=== PATIENT | male | born 1940 | race Caucasian/White ===

== ENCOUNTER 2020-08-27 11:29 | Outpatient (REF) | payer MEDICARE, SELFPAY | END 2020-08-27 11:30 | disposition home or self-care (01) | LOC: HO.LAB 11:29 | PROVIDERS: Visit Provider Internal Medicine | DX: Z20.828 Contact with and (suspected) exposure to other viral communicable diseases (principal) | CPT/HCPCS: 87635 ==

== ENCOUNTER 2020-09-19 14:00 | Outpatient (RCR) | payer MEDICARE, SELFPAY ==
[2020-08-13 08:09] VITALS: BMI 25.0
[2020-08-13 08:10] VITALS: BP 139/66; PULSE 100; RESP 18; TEMP 36.6; O2SAT 100
[2020-08-13 09:04] LABS: Hematocrit 32.3 % (42-52); Hemoglobin 10.7 g/dl (14.0-18.0); Mean Corpuscular HGB Conc 33.1 g/dl (31.0-36.0); Mean Corpuscular Hemoglobin 29.9 pg (27.0-33.0); Mean Corpuscular Volume 90.2 fL (80-98); Mean Platelet Volume 11.2 fL (9.4-12.4); Platelet Count 203 X10*3/uL (160-400); Red Blood Count 3.58 X10*6/uL (4.60-5.80); Red Cell Distribution Width 16.7 % (11.0-16.0); White Blood Count 4.5 X10*3/uL (4.8-10.8)
[2020-08-13 09:09] LABS: Glucose Urine UA >=1000 MG/DL (NEG); Leukocyte Esterase Urine NEG (NEG); Nitrite Urine NEG (NEG); PH 5.5 (5.0-8.0); Specific Gravity - Urine 1.015 (1.005-1.025); Urine Blood NEG (NEG); Urine Ketones NEG (NEG); Urine Protein NEG (NEG-TRACE)
[2020-08-13 09:13] LABS: Appearance Urine CLEAR; Color Urine YELLOW
[2020-08-13 09:16] LABS: Bacteria Urine TRACE /LPF; Mucus Urine TRACE /LPF; Squamous Epithelial Cell Urine 1+ /LPF
[2020-08-13 09:39] LABS: Alanine Aminotransferase 14 U/L (0-40); Albumin Level 3.8 g/dL (3.5-5.0); Alkaline Phosphatase 145 U/L (39-117); Anion Gap 15 (12-20); Aspartate Amino Transferase 12 U/L (5-37); Bilirubin Total 0.3 mg/dL (0.0-1.0); Blood Urea Nitrogen 25 mg/dL (9-16); Calcium 8.8 mg/dL (8.4-10.2); Carbon Dioxide 23 mmol/L (22-29); Chloride 103 mmol/L (96-108); Creatinine Clr Calc Pharmacy 56.2; Estimated Glomerular Filt Rate > 60; Glucose Random 472 mg/dL (60-115); Magnesium 1.9 mg/dL (1.6-2.6); Potassium 4.5 mmol/l (3.3-5.1); Sodium 136 mmol/L (135-145); Total Protein 6.7 g/dL (6.5-8.0)
--- NOTE | 2020-08-13 10:05 | P.PNHO_ITS ---
Medical Summary - Medical Summary Chief complaint: Follow-up for: Colon cancer. Liver metastases. Medical Summary: DIAGNOSIS: Stage III Colon Carcinoma. THERAPY: FOLFOX-based chemotherapy started May 07, completed 6 cycles on November 15, 2013. Started FOLFIRI, July 02. Here for cycle 2 day 14. Interval History Interval history: This is a pleasant 80-year-old gentleman, here for a follow-up visit. He had a Port-A-Cath inserted on July 02. Subsequently, he was brought down to Oncology for treatment. He has so far been tolerating the treatment reasonably well. He admits to easy fatigability. He has not noticed any fever nor chills. Denies any right upper quadrant nor belly pain. No nausea or vomiting. Denies heartburn indigestion. Denies any diarrhea. No gross blood in stools. His appetite is, regular. His weight stable. He is in good spirits. Rest of the review of systems is unremarkable. Review of Systems - Constitutional Reports no additional constitutional complaints - Eyes Reports no additional eye complaints - ENT Reports no additional ear, nose, mouth, and throat complaints - Cardiovascular Reports no additional cardiovascular complaints - Respiratory Reports no additional respiratory complaints - Gastrointestinal Reports no additional gastrointestinal complaints, Reports constipation, Reports nausea - Musculoskeletal Reports no additional musculoskeletal complaints - Integumentary/Breasts Skin/Breast: Reports no additional skin complaints - Neurologic Reports no additional neurologic complaints, Reports vertigo - Psychiatric Reports no additional psychiatric complaints - Endocrine Reports no additional endocrine complaints [facility] Medical History: Medical History (Last Updated 08/13/20 @ 08:43 by Leti Goddard RN) Colon cancer Smoking status: Never smoker Home Medications and Allergies Current Medications: Current Medications Generic Name Dose Route Start Last Admin Trade Name Freq PRN Reason Stop Dose Admin Dexamethasone Sodium Phosphate 12 mg in 50 mls @ 100 mls/hr 08/13/20 00:00 Decadron IV 08/13/20 23:59 ONCE JEROD Ondansetron HCl 16 mg in 50 mls @ 200 mls/hr 08/13/20 00:00 Zofran IV 08/13/20 23:59 ONCE JEROD Fosaprepitant 150 mg/ Sodium 150 mls @ 300 mls/hr 08/13/20 00:00 Chloride IV 08/13/20 23:59 ONCE JEROD Fosaprepitant 150 mg/ Sodium 150 mls @ 300 mls/hr 08/13/20 09:45 Chloride IV 08/13/20 10:14 ONCE JEROD Allergies Allergy/AdvReac Type Severity Reaction Status Date / Time No Known Allergies Allergy Unverified 07/25/20 16:22 [No Known Allergies*] MANUEL Adult Cup Supporter Allergy Unknown Uncoded 02/17/18 00:00 Exam Vital signs: Vital Signs Temp 97.8 F 08/13/20 08:10 Pulse 100 08/13/20 08:10 Resp 18 08/13/20 08:10 BP 139/66 08/13/20 08:10 Pulse Ox 100 08/13/20 08:10 Intake & Output 08/12/20 08/13/20 08/13/20 18:59 06:59 18:59 Other: Weight 74.5 kg 74.843 kg Weight 74.843 kg Body Mass Index 25.0 - Constitutional Present: no acute distress - Routine HEENT Exam Head: Present: normal inspection Eye: Present: normal appearance ENT: Present: mucous membranes moist - Routine Neck Exam Present: full ROM - Routine Respiratory Exam Present: CTAB - Routine Cardiovascular Exam Cardiovascular: Present: RRR, S1, S2 - Routine Abdominal Exam Present: distended, soft, nontender - Routine Rectal Exam Patient deferred: digital exam - Routine Neurological Exam Present: alert, oriented X3 - Routine Psychiatric Exam Present: normal affect Data - Labs CBC & Chem 7: 08/13/20 08:55 08/13/20 08:55 Labs: Laboratory Results - last 24 hr 08/13/20 08/13/20 08/13/20 08:55 08:55 08:55 WBC 4.5 L RBC 3.58 L Hgb 10.7 L Hct 32.3 L MCV 90.2 MCH 29.9 MCHC 33.1 RDW 16.7 H Plt Count 203 MPV 11.2 Sodium 136 Potassium 4.5 Chloride 103 Carbon Dioxide 23 Anion Gap 15 BUN 25 H Creatinine 1.03 Estim Creat Clear Calc 56.2 Estimated GFR > 60 Random Glucose 472 H* Calcium 8.8 Magnesium 1.9 Total Bilirubin 0.3 AST 12 ALT 14 Alkaline Phosphatase 145 H Total Protein 6.7 Albumin 3.8 Urine Color YELLOW Urine Appearance CLEAR Urine pH 5.5 Ur Specific [place] 1.015 Urine Protein NEG Urine Glucose (UA) >=1000 H Urine Ketones NEG Urine Blood NEG Urine Nitrite NEG Ur Leukocyte Esterase NEG Urine RBC 1-4 Urine WBC 1-4 Ur Squamous Epith Cells 1+ Urine Bacteria TRACE Urine Mucus TRACE Urine Yeast TRACE Urine Creatinine 08/13/20 08:55 WBC RBC Hgb Hct MCV MCH MCHC RDW Plt Count MPV Sodium Potassium Chloride Carbon Dioxide Anion Gap BUN Creatinine Estim Creat Clear Calc Estimated GFR Random Glucose Calcium Magnesium Total Bilirubin AST ALT Alkaline Phosphatase Total Protein Albumin Urine Color Urine Appearance Urine pH Ur Specific [place] Urine Protein Urine Glucose (UA) Urine Ketones Urine Blood Urine Nitrite Ur Leukocyte Esterase Urine RBC Urine WBC Ur Squamous Epith Cells Urine Bacteria Urine Mucus Urine Yeast Urine Creatinine 39.10 Progress Note: A/P (1) Colon cancer metastasized to liver Status: Acute Assessment and plan: A 80 year-old gentleman, with history of Colon Carcinoma stage III. The patient completed adjuvant chemotherapy with FOLFOX, on November 15, 2013. He had a colonoscopy in September of [address] Cruz, that was benign, except for sub optimal bowel prep. He is doing fairly well. He is clinically without any evidence of disease recurrence. He has had chronic urinary issues. He follows with Urology. I proceeded with a biopsy of the liver lesion. This revealed: Metastatic adenocarcinoma, consistent with colonic origin. Immunohistochemistry for MMR: wild type. BRAF and K geni mutations have been ordered. CT scan of the chest, to follow-up on the right middle lobe pulmonary nodule seen on PET scan, from June 17 revealed: Stable right upper lobe pulmonary nodule. Right pericardiophrenic adenopathy. Confluent low-attenuating abnormality replacing much of left lobe the liver. This is highly suspicious for metastatic colon cancer. Options for treatment include: Liver directed therapies, if the nodule is not significant. Systemic chemotherapy with: FOLFIRI plus Vectibix, versus Irinotecan plus Erbitux. 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 [place] sequencing of exon 4 was not performed. He was started on FOLFIRI with Avastin based chemotherapy on July 02, omitting Avastin with the 1st treatment since he had just had the port placed. PLAN: His blood sugar was noted to be elevated. he is only on a long-acting insulin. He was given a dose of Humalog, to cover that. He has been advised to follow up with his primary for further suggestion. He has had symptoms of constipation. He was advised to take senna 2 b.i.d. and drink lots of fluids with it. He is here for cycle 2 day 14 treatment. He will have 1 more cycle and then get re-staged with an imaging CT scan. Hopefully he will have a complete response. He will return in 1 week for a follow-up visit. If he has any problems he will call me in the interim. Thank you, CC: Dr. Godinez. Dr. Cruz. - Time Spent With Patient Total time spent is greater than 50% in coordination of care (as documented) at patient's floor/unit and/or counseling patient: 25 - 35 minutes
[2020-08-13 10:12] LABS: Atypical Lymph Absolute Manual 0.1 x10*3/uL; Atypical Lymphs Percent Manual 2 % (0-6); Band Neutrophils Percent 0 % (3-5); Lymphocytes Absolute Manual 0.5 X10*3/uL (0.6-4.8); Lymphocytes Percent Manual 12 % (20-40); Monocytes Absolute Manual 0.5 X10*3/uL (0.0-1.2); Monocytes Percent Manual 10 % (2-11); Neutrophils Absolute Manual 3.4 X10*3/uL (2.2-7.9); Neutrophils Percent Manual 76 % (45-73)
[2020-08-13 10:14] LABS: RBC Morphology NORMAL
[2020-08-13 10:15] LABS: Platelet Estimate NORMAL (NORMAL); Platelet Morphology Comment NORMAL
[2020-08-13] MEDS: dexAMETHasone sod phosphate/NS 12 MG/50 ML PIGGYBACK 200 MG IV (10:37)
[2020-08-13] MEDS: Insulin Regular, Human 100 UNIT/ML 3 ML VIAL 10 UNIT SUBCUT (10:37)
[2020-08-13] MEDS: ondansetron HCL/NS 16 MG/50 ML PIGGYBACK 200 MG IV (10:38)
[2020-08-13] MEDS: Fosaprepitant Dimeglumine 150 MG in 0.9 % Sodium Chloride 145 ML 300 MG IV (11:55)
--- NOTE | 2020-08-13 15:36 | MHC.HEMONC ---
Patient here for treatment today. Labs drawn and UA collected. Urine glucose greater than 1000 and random glucose 472, provider aware, 10 units Humulin R given as ordered. Pt tolerated treatment well. Discharged with 5FU pump. Scheduled to return for pump take down.
[2020-08-15 14:08] VITALS: BP 147/75; PULSE 89; RESP 18; TEMP 36.8; O2SAT 99; BMI 24.7
[2020-08-15] MEDS: Pegfilgrastim Onpro 6 MG/0.6 ML SYR.W..INJ SUBCUT (14:22)
[2020-08-15] MEDS: Heparin Sodium,Porcine Flush 500 UNIT/5 ML SYRINGE IVFLUSH (14:22)
--- NOTE | 2020-08-15 14:43 | MHC.HEMONC ---
Patient here for 5FU pump takedown. Port flushed with saline, good blood return noted. Heparin locked and deaccessed. Neulasta OnBody applied, pt knows to remove after 7pm tomorrow 08/16. Patient to return for treatment in 2 weeks and knows to call the office if any issues arise such as increased fatigue, spontaneous bruising or bleeding or other symptoms.
[2020-08-27 08:17] VITALS: BP 122/58; PULSE 109; RESP 18; TEMP 36.4; O2SAT 98
[2020-08-27 09:29] LABS: MANUAL DIFF FLAG NO
[2020-08-27 09:40] LABS: Glucose Urine UA 500 MG/DL (NEG); Leukocyte Esterase Urine NEG (NEG); Nitrite Urine NEG (NEG); PH 6.5 (5.0-8.0); Urine Blood NEG (NEG); Urine Ketones NEG (NEG); Urine Protein 1+ MG/DL (NEG-TRACE)
--- NOTE | 2020-08-27 09:40 | MHC.HEMONC ---
Patient here today for treatment today. Has continued complaints of throat pain and RN noted swollen glands as well as an open area on the tongue. RN added patient to Dr. Barnes's schedule for follow up, and patient was seen and assessed by MD. His caregiver also reported a fever of 101 last week but has since resolved. RN educated caregiver to record temperatures when he measures them. MD aware of all updates, and will order magic mouthwash for patient.
[2020-08-27 09:42] LABS: Appearance Urine HAZY; Color Urine YELLOW
[2020-08-27 09:44] LABS: Basophils Percent Auto 0.2 % (0-2); Eosinophils Absolute Auto 0.1 X10*3/uL (0.0-0.4); Eosinophils Percent Auto 1.1 % (0-4); Hematocrit 31.6 % (42-52); Hemoglobin 10.4 g/dl (14.0-18.0); Imm Gran Abs Auto 0.16 X10*3/uL (0.00-0.03); Imm Gran Pct Auto 1.7 % (0.0-0.4); Lymphocytes Absolute Auto 1.2 X10*3/uL (1.2-4.9); Lymphocytes Percent Auto 12.7 % (20-40); Mean Corpuscular HGB Conc 32.9 g/dl (31.0-36.0); Mean Corpuscular Hemoglobin 29.8 pg (27.0-33.0); Mean Corpuscular Volume 90.5 fL (80-98); Mean Platelet Volume 11.4 fL (9.4-12.4); Monocytes Absolute Auto 0.6 X10*3/uL (0.1-1.2); Monocytes Percent Auto 6.3 % (2-11); Neutrophils Absolute Auto 7.5 X10*3/uL (2.0-8.3); Red Blood Count 3.49 X10*6/uL (4.60-5.80); Red Cell Distribution Width 17.2 % (11.0-16.0); White Blood Count 9.6 X10*3/uL (4.8-10.8)
[2020-08-27 09:55] LABS: Mucus Urine 3+ /LPF; RBC Urine 0 /HPF (0); Squamous Epithelial Cell Urine 2+ /LPF
[2020-08-27 10:08] LABS: Platelet Count 61 X10*3/uL (160-400)
[2020-08-27 10:09] LABS: Alanine Aminotransferase 19 U/L (0-40); Albumin Level 2.6 g/dL (3.5-5.0); Alkaline Phosphatase 146 U/L (39-117); Anion Gap 12 (12-20); Aspartate Amino Transferase 13 U/L (5-37); Bilirubin Total 0.4 mg/dL (0.0-1.0); Blood Urea Nitrogen 17 mg/dL (9-16); Calcium 7.3 mg/dL (8.4-10.2); Carbon Dioxide 25 mmol/L (22-29); Chloride 99 mmol/L (96-108); Creatinine Clr Calc Pharmacy 59.7; Estimated Glomerular Filt Rate > 60; Magnesium 1.6 mg/dL (1.6-2.6); Potassium 3.8 mmol/l (3.3-5.1); Sodium 132 mmol/L (135-145); Total Protein 4.8 g/dL (6.5-8.0)
[2020-08-27 10:10] LABS: Glucose Random 358 mg/dL (60-115)
[2020-08-27] MEDS: Mag&Al/Sim/Diphenhyd/Lidocaine 10 ML ORAL.SUSP PO (10:31)
--- NOTE | 2020-08-27 10:54 | P.PNHO_ITS ---
Medical Summary - Medical Summary Chief complaint: follow-up for colon cancer with liver metastases. Medical Summary: DIAGNOSIS: Stage III Colon Carcinoma. THERAPY: FOLFOX-based chemotherapy started May 07, completed 6 cycles on November 15, 2013. Started FOLFIRI, July 02. Here for cycle 3 day 14. However did not receive on account of thrombocytopenia with platelets of 61. Interval History Interval history: This is a pleasant 80-year-old gentleman, here for a follow-up visit. he does not feel too well. he tells me he has had a sore throat since he began can the treatment. sometimes it is hard for him to swallow due to pain. recently he has noted some mouth sores. especially on top of the tongue. he has had a dry cough. No sputum production. He denies any chest pain or shortness of breath. He reports fevers at night sometimes. mostly it's is 99 degrees however 1 day last week of toes 101. he was given Tylenol in he got better. He admits to easy fatigability. He has not noticed any fever nor chills. Denies any right upper quadrant nor belly pain. No nausea or vomiting. Denies heartburn indigestion. Denies any diarrhea. No gross blood in stools. His appetite is, regular. His weight stable. He is in good spirits. Rest of the review of systems is unremarkable. Review of Systems - Constitutional Reports body ache(s), Reports chills, Reports fatigue, Reports fever(s), Reports lack of energy, Reports malaise, Reports weakness - Eyes Denies change in vision - ENT Reports system reviewed and no additional complaints, except as documented, Reports mouth lesions - Cardiovascular Denies chest pain - Respiratory Reports cough - Gastrointestinal Denies abdominal pain, Denies bloating - Musculoskeletal Reports body aches - Integumentary/Breasts Skin/Breast: Denies bleeding lesions - Neurologic Reports system reviewed and no additional complaints, except as documented, Reports vertigo - Psychiatric Reports depression - Hematologic/Lymphatic Denies easy bruising - Allergic/Immunologic Denies GI upset with certain foods PMFSH Medical History: Medical History (Last Updated 08/13/20 @ 08:43 by Leti Goddard RN) Colon cancer Smoking status: Never smoker Home Medications and Allergies Current Medications: Current Medications Generic Name Dose Route Start Last Admin Trade Name Freq PRN Reason Stop Dose Admin Heparin Sodium (Porcine) 500 0 unit 08/27/20 10:45 unit/ Sodium Chloride 5 ml IVFLUSH ONCE PRE DISCHARGE [facility] Dexamethasone Sodium Phosphate 12 mg in 50 mls @ 100 mls/hr 08/27/20 00:00 Decadron IV 08/27/20 23:59 ONCE JEROD Home Medications Medication Instructions Recorded Confirmed Type aspirin 81 mg PO DAILY 08/13/20 08/13/20 History atorvastatin 80 mg PO BEDTIME 08/13/20 08/13/20 History chlorpromazine 25 mg PO Q4H PRN 08/13/20 08/13/20 History dexamethasone 4 mg PO BID 08/13/20 08/13/20 History dulaglutide 1.5 mg SUBCUT QWEEK 08/13/20 08/13/20 History esomeprazole magnesium 20 mg PO DAILY 08/13/20 08/13/20 History famotidine 20 mg PO DAILY 08/13/20 08/13/20 History losartan-hydrochlorothiazide 1 tab PO DAILY 08/13/20 08/13/20 History melatonin 5 mg PO BEDTIME PRN 08/13/20 08/13/20 History metformin 1,000 mg PO BID 08/13/20 08/13/20 History ondansetron 8 mg PO Q8H PRN 08/13/20 08/13/20 History sertraline 100 mg PO DAILY 08/13/20 08/13/20 History tamsulosin 0.4 mg PO DAILY 08/13/20 08/13/20 History Allergies Allergy/AdvReac Type Severity Reaction Status Date / Time No Known Allergies Allergy Unverified 07/25/20 16:22 [No Known Allergies*] MANUEL Adult Cup Supporter Allergy Unknown Uncoded 02/17/18 00:00 Exam Vital signs: Vital Signs Temp 97.6 F 08/27/20 08:17 Pulse 109 H 08/27/20 08:17 Resp 18 08/27/20 08:17 BP 122/58 L 08/27/20 08:17 Pulse Ox 98 08/27/20 08:17 Intake & Output 08/26/20 08/27/20 08/27/20 18:59 06:59 18:59 Other: Weight 73.709 kg Weight 73.709 kg Body Mass Index 24.7 - Constitutional Present: mild distress - Routine Neck Exam Present: full ROM - Routine Respiratory Exam Present: CTAB - Routine Cardiovascular Exam Cardiovascular: Present: RRR, S1, S2 - Routine Abdominal Exam Present: soft, nontender - Routine Rectal Exam Patient deferred: digital exam - Routine Extremities Exam Present: nontender - Routine Back/Spine/Pelvis Exam Back/Spine: Present: full ROM Pelvis: Absent: buttock swelling - Routine Neurological Exam Present: alert, oriented X3, normal reflexes - Detailed Neurological Exam: Coma Scale Eye Opening: Spontaneous (4) - Routine Psychiatric Exam Present: depressed Data - Labs CBC & Chem 7: 08/27/20 09:00 08/27/20 09:00 Labs: Laboratory Results - last 24 hr 08/27/20 08/27/20 08/27/20 09:00 09:00 09:00 WBC 9.6 RBC 3.49 L Hgb 10.4 L Hct 31.6 L MCV 90.5 MCH 29.8 MCHC 32.9 RDW 17.2 H Plt Count 61 L D MPV 11.4 Immature Gran % (Auto) 1.7 H Neut % (Auto) 78.0 H Lymph % (Auto) 12.7 L [place] % (Auto) 6.3 Eos % (Auto) 1.1 Baso % (Auto) 0.2 Lymph # (Auto) 1.2 [place] # (Auto) 0.6 Eos # (Auto) 0.1 Baso # (Auto) 0.0 Abs Immat Gran (auto) 0.16 H Absolute Neuts (auto) 7.5 Absolute Nucleated RBC 0.000 Nucleated RBC % (auto) 0.0 Sodium 132 L Potassium 3.8 Chloride 99 Carbon Dioxide 25 Anion Gap 12 BUN 17 H Creatinine 0.97 Estim Creat Clear Calc 59.7 Estimated GFR > 60 Random Glucose 358 H* Calcium 7.3 L Magnesium 1.6 Total Bilirubin 0.4 AST 13 ALT 19 Alkaline Phosphatase 146 H Total Protein 4.8 L D Albumin 2.6 L D Urine Color YELLOW Urine Appearance HAZY Urine pH 6.5 Ur Specific [place] 1.020 Urine Protein 1+ H Urine Glucose (UA) 500 H Urine Ketones NEG Urine Blood NEG Urine Nitrite NEG Ur Leukocyte Esterase NEG Urine RBC 0 Urine WBC 1-4 Ur Squamous Epith Cells 2+ Urine Bacteria NONE Urine Mucus 3+ Progress Note: A/P (1) Colon cancer metastasized to liver Status: Acute Assessment and plan: A 80 year-old gentleman, with history of Colon Carcinoma stage III. The patient completed adjuvant chemotherapy with FOLFOX, on November 15, 2013. He had a colonoscopy in September of [address] Cruz, that was benign, except for sub optimal bowel prep. He is doing fairly well. He is clinically without any evidence of disease recurrence. He has had chronic urinary issues. He follows with Urology. I proceeded with a biopsy of the liver lesion. This revealed: Metastatic adenocarcinoma, consistent with colonic origin. Immunohistochemistry for MMR: wild type. BRAF and K geni mutations have been ordered. CT scan of the chest, to follow-up on the right middle lobe pulmonary nodule seen on PET scan, from June 17 revealed: Stable right upper lobe pulmonary nodule. Right pericardiophrenic adenopathy. Confluent low-attenuating abnormality replacing much of left lobe the liver. This is highly suspicious for metastatic colon cancer. Options for treatment include: Liver directed therapies, if the nodule is not significant. Systemic chemotherapy with: FOLFIRI plus Vectibix, versus Irinotecan plus Erbitux. 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 [place] sequencing of exon 4 was not performed. l have elected to treat him with FOLFIRI and Avastin based chemotherapy. I omitted Avastin with the first cycle since he had the Port-A-Cath inserted. He does not feel well today with sore throat and [place]. [place] [address] so will need to hold his treatment today. PLAN: He was given Magic mouthwash. a prescription will send be sent to his pharmacy. He will return in 1 week for his treatment. Plan is to give him 3 cycles and then re-stage him. Hopefully he will have a complete response. If he has any problems he will call me in the interim. Thank you, CC: Dr. Godinez. Dr. Cruz. Code Status FULL CODE - Time Spent With Patient Total time spent is greater than 50% in coordination of care (as documented) at patient's floor/unit and/or counseling patient: 25 - 35 minutes
--- NOTE | 2020-08-27 12:08 | MHC.HEMONC ---
Addendum entered by Leti Goddard RN 08/27/20 12:10: Pt was given magic mouthwash for throat pain and port was flushed, heparin locked, and deaccessed prior to discharge. Original Note: Patient unable to be treated today due to platelets of 61. Will return next Wednesday for treatment. Patient and caregiver educated and aware, aware.
[2020-09-03 08:14] VITALS: BP 123/61; PULSE 96; RESP 18; TEMP 36.3; O2SAT 100
[2020-09-03 08:24] VITALS: BMI 25.1
[2020-09-03 09:17] LABS: MANUAL DIFF FLAG NO
[2020-09-03 09:21] LABS: Basophils Percent Auto 0.4 % (0-2); Eosinophils Absolute Auto 0.2 X10*3/uL (0.0-0.4); Eosinophils Percent Auto 2.4 % (0-4); Hematocrit 28.8 % (42-52); Hemoglobin 9.6 g/dl (14.0-18.0); Imm Gran Abs Auto 0.08 X10*3/uL (0.00-0.03); Imm Gran Pct Auto 0.9 % (0.0-0.4); Lymphocytes Absolute Auto 1.7 X10*3/uL (1.2-4.9); Lymphocytes Percent Auto 18.3 % (20-40); Mean Corpuscular HGB Conc 33.3 g/dl (31.0-36.0); Mean Corpuscular Volume 92.9 fL (80-98); Mean Platelet Volume 10.6 fL (9.4-12.4); Monocytes Absolute Auto 0.7 X10*3/uL (0.1-1.2); Monocytes Percent Auto 7.8 % (2-11); Neutrophils Absolute Auto 6.4 X10*3/uL (2.0-8.3); Neutrophils Percent Auto 70.2 % (45-73); Platelet Count 165 X10*3/uL (160-400); Red Cell Distribution Width 17.2 % (11.0-16.0); White Blood Count 9.1 X10*3/uL (4.8-10.8)
[2020-09-03 09:31] LABS: Glucose Urine UA 500 MG/DL (NEG); Leukocyte Esterase Urine NEG (NEG); Nitrite Urine NEG (NEG); PH 5.5 (5.0-8.0); Specific Gravity - Urine >= 1.030 (1.005-1.025); Urine Blood NEG (NEG); Urine Ketones NEG (NEG); Urine Protein TRACE MG/DL (NEG-TRACE)
[2020-09-03 09:32] LABS: Appearance Urine CLEAR; Color Urine YELLOW
[2020-09-03 09:57] LABS: Alanine Aminotransferase 16 U/L (0-40); Albumin Level 2.8 g/dL (3.5-5.0); Alkaline Phosphatase 116 U/L (39-117); Anion Gap 11 (12-20); Aspartate Amino Transferase 17 U/L (5-37); Bilirubin Total 0.2 mg/dL (0.0-1.0); Blood Urea Nitrogen 11 mg/dL (9-16); Calcium 7.6 mg/dL (8.4-10.2); Carbon Dioxide 25 mmol/L (22-29); Chloride 104 mmol/L (96-108); Creatinine Clr Calc Pharmacy 75.2; Estimated Glomerular Filt Rate > 60; Glucose Random 279 mg/dL (60-115); Sodium 136 mmol/L (135-145); Total Protein 5.7 g/dL (6.5-8.0)
[2020-09-03] MEDS: ondansetron HCL/NS 16 MG/50 ML PIGGYBACK 200 MG IV (10:20)
[2020-09-03] MEDS: dexAMETHasone sod phosphate/NS 12 MG/50 ML PIGGYBACK 200 MG IV (10:40)
--- NOTE | 2020-09-03 17:32 | PC.NURSE ---
Pt here for chemo treatment. Labs reviewed. Assessment done with sales expert. Sent home with home infusion pump. Tolerated treatment well.
[2020-09-05 13:47] VITALS: BP 150/72; PULSE 95; RESP 12; TEMP 36.1; O2SAT 98; BMI 24.4
[2020-09-05] MEDS: Pegfilgrastim Onpro 6 MG/0.6 ML SYR.W..INJ SUBCUT (14:22)
[2020-09-17 08:03] VITALS: BP 132/72; PULSE 114; RESP 18; TEMP 36.4; O2SAT 99; BMI 24.7
[2020-09-17 09:08] LABS: MANUAL DIFF FLAG NO
[2020-09-17 09:11] LABS: Basophils Percent Auto 0.2 % (0-2); Hematocrit 33.1 % (42-52); Hemoglobin 10.8 g/dl (14.0-18.0); Imm Gran Abs Auto 0.22 X10*3/uL (0.00-0.03); Lymphocytes Absolute Auto 0.9 X10*3/uL (1.2-4.9); Lymphocytes Percent Auto 7.9 % (20-40); Mean Corpuscular HGB Conc 32.6 g/dl (31.0-36.0); Mean Corpuscular Volume 95.1 fL (80-98); Mean Platelet Volume 10.8 fL (9.4-12.4); Monocytes Absolute Auto 0.4 X10*3/uL (0.1-1.2); Monocytes Percent Auto 3.9 % (2-11); NRBC Pct Auto 0.2 /100WBC (0.0-0.2); Neutrophils Absolute Auto 9.3 X10*3/uL (2.0-8.3); Platelet Count 133 X10*3/uL (160-400); Red Blood Count 3.48 X10*6/uL (4.60-5.80); Red Cell Distribution Width 18.1 % (11.0-16.0); White Blood Count 10.8 X10*3/uL (4.8-10.8)
[2020-09-17 09:12] LABS: Glucose Urine UA >=1000 MG/DL (NEG); Leukocyte Esterase Urine NEG (NEG); Nitrite Urine NEG (NEG); PH 5.5 (5.0-8.0); Specific Gravity - Urine 1.025 (1.005-1.025); Urine Blood NEG (NEG); Urine Ketones NEG (NEG); Urine Protein NEG (NEG-TRACE)
[2020-09-17 09:15] LABS: Appearance Urine CLEAR; Color Urine YELLOW
[2020-09-17] MEDS: 0.9 % Sodium Chloride 1,000 ML 500 ML IVCONT (09:15)
[2020-09-17 09:28] LABS: RBC Urine 0-2 /HPF (0); Squamous Epithelial Cell Urine TRACE /LPF; WBC Urine 0-2 /HPF (0-4)
[2020-09-17 09:43] LABS: Alanine Aminotransferase 21 U/L (0-40); Albumin Level 3.2 g/dL (3.5-5.0); Alkaline Phosphatase 173 U/L (39-117); Anion Gap 15 (12-20); Aspartate Amino Transferase 13 U/L (5-37); Bilirubin Total 0.3 mg/dL (0.0-1.0); Blood Urea Nitrogen 15 mg/dL (9-16); Calcium 7.9 mg/dL (8.4-10.2); Carbon Dioxide 20 mmol/L (22-29); Chloride 102 mmol/L (96-108); Creatinine Clr Calc Pharmacy 69.8; Estimated Glomerular Filt Rate > 60; Glucose Random 381 mg/dL (60-115); Potassium 4.3 mmol/l (3.3-5.1); Sodium 133 mmol/L (135-145); Total Protein 5.7 g/dL (6.5-8.0)
[2020-09-17] MEDS: Insulin Lispro 100 UNIT/ML 3 ML VIAL SUBCUT (10:49)
[2020-09-17] MEDS: Mag&Al/Sim/Diphenhyd/Lidocaine 10 ML ORAL.SUSP PO (10:51)
[2020-09-17] MEDS: Famotidine/PF 20 MG/2 ML VIAL IVPUSH (10:55)
[2020-09-17] MEDS: ondansetron HCL/NS 16 MG/50 ML PIGGYBACK 200 MG IV (11:02)
[2020-09-17] MEDS: dexAMETHasone sod phosphate/NS 12 MG/50 ML PIGGYBACK 200 MG IV (11:32)
[2020-09-17] MEDS: Fosaprepitant Dimeglumine 150 MG in 0.9 % Sodium Chloride 145 ML 300 MG IV (11:49)
--- NOTE | 2020-09-17 16:26 | MHC.HEMONC ---
Pt here for chemo infusion. Port accessed, good blood return. Labs reviewed. Random glucose 381, reported to Dr Barnes. Orders received for insulin. Lispro insulin 5 units given at 1049. Repeat BS done at 1415, result 352. Reported to Dr Barnes, results to be faxed to pt's MD at [facility]. Pt's mouth sore, some ulcerations noted back of throat. Given magic mouthwash with good results. Encouraged to take regularly at home if experiencing mouth sores. Pt also noted to have hoarse voice. Chemo infusion given and pt tolerated well. Home with infusion pump, to return for take down on 09/19. Next chemo infusion scheduled for Sunday 09/30.
[2020-09-18 07:06] LABS: Glucose, Whole Blood 352 mg/dL (60-115)
[2020-09-19 14:17] VITALS: BP 125/71; PULSE 106; TEMP 36.7; O2SAT 97
--- NOTE | 2020-09-19 15:15 | MHC.HEMONC ---
Pt here for take down of home infusion pump. Offers no c/o, states is taking magic mouthwash at home. Port flushed with heparin as ordered, deaccessed. Plan to return 09/30 for chemo infusion.
== END 2020-10-14 | disposition home or self-care (01) ==
LOC: HO.ONC 14:00
PROVIDERS: PCP Internal Medicine Geriatric Medicine; Visit Provider Internal Medicine Medical Oncology
DX: Z51.11 Encounter for antineoplastic chemotherapy (principal); C78.7 Secondary malignant neoplasm of liver and intrahepatic bile duct; Z85.038 Personal history of other malignant neoplasm of large intestine; K59.00 Constipation, unspecified; Z76.89 Persons encountering health services in other specified circumstances
CPT/HCPCS: 36415; 80053; 81001; 81003; 82378; 82947; 83735; 85007; 85025; 85027; 96361; 96366; 96367; 96368; 96372; 96375; 96377; 96409; 96411; 96413; 96415; 96416; 96417; 96523; 99214; J0640; J1100; J1453; J1642; J2405; J2505; J9035; J9190; J9206

== ENCOUNTER 2020-09-30 08:33 | Inpatient (IN) | payer MEDICARE, SELFPAY ==
[2020-09-30] VITALS (12 sets, daily range): BP systolic 90–125; BP diastolic 45–70; PULSE 75–120; RESP 14–22; TEMP 36.1–39.4; O2SAT 93–99; BMI 21.9
--- NOTE | 2020-09-30 08:52 | PC.NURSE ---
aleyda cath in right acw dry oral mucosa reports abd pain was scheduled for chemo this am persistent hiccups secondary to chemo side affect
--- NOTE | 2020-09-30 08:54 | XR_ITS ---
EXAMINATION: XR CHEST CLINICAL INFORMATION: Shortness of breath and weakness. On chemotherapy for colon cancer. COMPARISON: Previous chest x-ray most recent 07/30/2020 TECHNIQUE: Frontal view of the chest was obtained. FINDINGS: The cardiac and mediastinal contours are normal. There is a right jugular port with tip projecting over the SVC. There is question of infiltrate at the left lung base. The right lung is clear. There is no pleural effusion or pneumothorax. There are degenerative changes of the spine. XR/XR chest 1V IMPRESSION: Question infiltrate/pneumonia at the left lung base.
--- NOTE | 2020-09-30 09:26 | ED.WEAKNESS ---
HPI - Weakness General Chief complaint: Weakness Stated complaint: WEAKNESS Time Seen by Provider: 09/30/20 08:49 History of Present Illness HPI Narrative: 80-year-old male brought to the emergency department by ambulance for evaluation of weakness, poor food and fluid intake, nonproductive cough x4 days. The patient is Icelandic-speaking only and I did use an artificial flowers starcher to obtain information from him however the information was limited since the patient appears to be confused and has a very slow speech pattern. I did get information from EMS and from the patient's grandson, Faustino at . 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 He was scheduled to get chemotherapy today. The grandson reports that the patient has been on chemotherapy for approximately 2 months. Over the past 4 days the patient has had difficulty getting out of bed. He has not been eating and drinking. He has had a cough which is nonproductive. He has complained of throat pain to the grandson and to me in the emergency department. He states that he is having severe pain whenever he swallows. The grandson states that this morning the patient felt warm to the touch and he believes that his grandfather had a fever. They tried to get him up and out of bed to bring him to his chemotherapy appointment but he was too weak to get out of bed too weak to stand and walk therefore they called an ambulance. Related Data Home Medications Medication Instructions Recorded Confirmed aspirin 81 mg PO DAILY 08/13/20 08/13/20 atorvastatin 80 mg PO BEDTIME 08/13/20 08/13/20 chlorpromazine 25 mg PO Q4H PRN 08/13/20 08/13/20 dexamethasone 4 mg PO BID 08/13/20 08/13/20 dulaglutide 1.5 mg SUBCUT QWEEK 08/13/20 08/13/20 esomeprazole magnesium 20 mg PO DAILY 08/13/20 08/13/20 famotidine 20 mg PO DAILY 08/13/20 08/13/20 losartan-hydrochlorothiazide 1 tab PO DAILY 08/13/20 08/13/20 melatonin 5 mg PO BEDTIME PRN 08/13/20 08/13/20 metformin 1,000 mg PO BID 08/13/20 08/13/20 ondansetron 8 mg PO Q8H PRN 08/13/20 08/13/20 sertraline 100 mg PO DAILY 08/13/20 08/13/20 tamsulosin 0.4 mg PO DAILY 08/13/20 08/13/20 Previous Rx's Medication Instructions Recorded chlorpromazine 25 mg PO Q6H PRN #60 tab 09/24/20 ondansetron HCl [Zofran] 8 mg PO BID-TID #60 tab 09/24/20 Allergies Allergy/AdvReac Type Severity Reaction Status Date / Time No Known Allergies Allergy Unverified 07/25/20 16:22 [No Known Allergies*] MANUEL Adult Cup Supporter Allergy Unknown Uncoded 02/17/18 00:00 Review of Systems Review of Systems: Yes all other systems are reviewed and are negative Constitutional: Constitutional: Reports fatigue, Reports weakness and Reports other (Poor food and fluid intake x4 days, reported by grandson) Cardiovascular: Cardiovascular: Reports as per HPI Respiratory: Respiratory: Reports cough (Dry, nonproductive cough reported by his grandson x4 days) Gastrointestinal: Gastrointestinal: Reports as per HPI Genitourinary: Genitourinary: Reports as per HPI Musculoskeletal: Musculoskeletal: Reports as per HPI Integumentary/Breasts: Skin/Breast: Reports as per HPI Neurologic: Reports as per HPI, Reports Abnormal speech present, Reports confusion and Reports weakness Psychiatric: Psychiatric: Reports as per HPI and Reports confusion Endocrine: Endocrine: Reports fatigue PMFSH Past Medical History Medical History Colon cancer Social History Social History (Updated 09/30/20 @ 09:30 by Terence Askew MD) Household Members: Spouse and Family Household Members Other:: Lives at home with and grandson Faustino Smoking Status: Never smoker Use of substances other than those prescribed or required for medical reasons: No Advance Directives: No Advance Directives Information Provided: No Physical Exam Vital Signs: Vital Signs: Last Vital Signs Temp 103.0 F H 09/30/20 09:17 Pulse 90 09/30/20 10:57 Resp 14 09/30/20 10:57 BP 100/48 L 09/30/20 10:57 Pulse Ox 98 11/23/20 09:17 Body Mass Index 21.9 Const: General: confusion, lethargic and tired appearing Nutritional Appearance: overweight Orientation/consciousness: oriented to place, confusion and lethargic Limitations: other limitations (Answers questions slowly even with demurrage worker, oriented to person ) HENMT: Head: Yes normocephalic and Yes atraumatic Ears: hearing grossly impaired General nose exam: Normal external nose present and Normal nares present Face and sinus: Yes normal facial exam Mouth: mucous membranes dry and moist mucous membranes abnormal (Very dry mucous membranes, no obvious lesions noted) Throat: Yes posterior oropharynx normal Eyes: General: appearance normal, both eyes and all related structures Alignment and Position: alignment normal Eyelids: Yes eyelids normal Sclerae: sclerae normal Corneas: corneas normal Pupils: Equal, round and reactive pupils present Direct Ophthalmoscopy: normal light reflex Neck: Neck: Yes normal visual inspection, Yes trachea midline and Yes supple Thyroid: Thyroid normal Chest: Chest palpation & inspection: normal inspection of the chest and normal palpation of entire chest wall Resp: Effort & Inspection: able to speak in complete sentences and tachypneic Auscultation: crackles on the left at the base Cardio: Rate: tachycardic Rhythm: regular rhythm Heart sounds: S1 normal heart sound present, S2 normal heart sound present and no murmurs GI: Inspection: Yes normal to inspection and No distended Palpation (GI): Soft to palpation and nontender Auscultation: normal bowel sounds : General: Yes no CVA tenderness Back/Spine/Pelvis: Back: no CVA tenderness Thoracic/Lumbar Spine: lumbar spinal tenderness Neuro: General: oriented to place and confusion Cranial nerves: Yes CN's II-XII intact bilaterally and Yes Equal, round and reactive pupils present Speech: Abnormal speech present Motor exam (neuro): 5/5 motor strength present throughout Extrem: General: Yes normal to inspection, Yes full ROM and Yes no pedal edema Psych: Appearance: well kempt Speech and movement: Slowed speech present (Psych) Course Course Course Narrative: The patient's laboratory evaluation did reveal an elevated lactic acid 2.2. Patient has a pancytopenia with a WBC of 900 and a low ANC of 300. The patient's chest x-ray was concerning for left lower lobe infiltrate/pneumonia. Concerned the patient may also have mucositis since he is receiving chemotherapy concurrently has throat pain. I did discuss the patient's presentation with the covering hospitalist, Dr. Benites and with the patient's oncologist Dr. Barnes. The patient is a full code and will be admitted to the [facility] for further treatment. MDM - Weakness MDM Narrative Medical decision making narrative: 80-year-old male who has a history of colon cancer metastatic to the liver who is receiving chemotherapy x2 months, last treated with chemotherapy 2 weeks prior, scheduled for chemotherapy today who presents to the emergency department for failure to thrive x4 days with poor food and fluid intake, throat pain which is worse with swallowing and a nonproductive cough. On presentation the patient did have a fever of 103? rectally and this was treated with Tylenol. The patient does meet sepsis criteria with a high fever, pulse of 115 and respiratory rate of 20. Physical exam reveals severe dry mucous membranes but no clear buccal mucosal lesions that I could perceive on my exam however he does have pain with swallowing and concerned that he may have mucositis from his chemotherapy which puts him at high risk for staph/strep sepsis. The patient also has rales in his bases and concerned that he may have pneumonia or a urinary tract infection is the cause of his fever. I did order a septic workup, 30 cc/kilogram fluid bolus, Zosyn and vancomycin IV after blood cultures are obtained. I did discuss the patient's presentation with grandson and I will also discuss the patient's presentation with his oncologist. Given his altered mental status, CT scan of the brain was also ordered. Lab Data Result diagrams: 09/30/20 09:54 09/30/20 09:53 Labs: Lab Results 09/30/20 09/30/20 09/30/20 Range/Units 09:53 09:54 09:54 WBC 0.9 L* (4.8-10.8) X10*3/uL RBC 3.12 L (4.60-5.80) X10*6/uL Hgb 9.5 L (14.0-18.0) g/dl Hct 28.7 L (42-52) % MCV 92.0 (80-98) fL MCH 30.4 (27.0-33.0) pg MCHC 33.1 (31.0-36.0) g/dl RDW 15.1 (11.0-16.0) % Plt Count 119 L (160-400) X10*3/uL MPV 10.5 (9.4-12.4) fL Immature Gran % (Auto) 1.2 H (0.0-0.4) % Neut % (Auto) 30.6 L (45-73) % Lymph % (Auto) 50.6 H (20-40) % [place] % (Auto) 17.6 H (2-11) % Eos % (Auto) 0.0 (0-4) % Baso % (Auto) 0.0 (0-2) % Lymph # (Auto) 0.4 L (1.2-4.9) X10*3/uL [place] # (Auto) 0.2 (0.1-1.2) X10*3/uL Eos # (Auto) 0.0 (0.0-0.4) X10*3/uL Baso # (Auto) 0.0 (0.0-0.2) X10*3/uL Abs Immat Gran (auto) 0.01 (0.00-0.03) X10*3/uL Absolute Neuts (auto) 0.3 L (2.0-8.3) X10*3/uL Absolute Nucleated RBC 0.000 (0.0-0.012) X10*3/uL Nucleated RBC % (auto) 0.0 (0.0-0.2) /100WBC Smear Tech's Comments VERIFIED PT (10.8-13.0) SEC INR (0.9-1.1) APTT (24.1-38.0) SEC Sodium 131 L (135-145) mmol/L Potassium 4.7 (3.3-5.1) mmol/l Chloride 98 (96-108) mmol/L Carbon Dioxide 22 (22-29) mmol/L Anion Gap 16 (12-20) BUN 18 H (9-16) mg/dL Creatinine 1.05 (0.5-1.4) mg/dL Estim Creat Clear Calc 55.9 Estimated GFR > 60 Random Glucose 306 H (60-115) mg/dL Lactic Acid 2.2 H* (0.5-2.0) mmol/L Calcium 7.1 L D (8.4-10.2) mg/dL Total Bilirubin 0.3 (0.0-1.0) mg/dL Direct Bilirubin < 0.2 (0.0-0.5) mg/dL AST 40 H D (5-37) U/L ALT 14 (0-40) U/L Alkaline Phosphatase 97 D (39-117) U/L Total Protein 5.4 L (6.5-8.0) g/dL Albumin 2.5 L D (3.5-5.0) g/dL Coronavirus (PCR) (Negative) Influenza Type A (PCR) (Negative) Influenza Type B (PCR) (Negative) RSV RNA Qual (PCR) (Negative) 09/30/20 09/30/20 Range/Units 09:54 09:56 WBC (4.8-10.8) X10*3/uL RBC (4.60-5.80) X10*6/uL Hgb (14.0-18.0) g/dl Hct (42-52) % MCV (80-98) fL MCH (27.0-33.0) pg MCHC (31.0-36.0) g/dl RDW (11.0-16.0) % Plt Count (160-400) X10*3/uL MPV (9.4-12.4) fL Immature Gran % (Auto) (0.0-0.4) % Neut % (Auto) (45-73) % Lymph % (Auto) (20-40) % [place] % (Auto) (2-11) % Eos % (Auto) (0-4) % Baso % (Auto) (0-2) % Lymph # (Auto) (1.2-4.9) X10*3/uL [place] # (Auto) (0.1-1.2) X10*3/uL Eos # (Auto) (0.0-0.4) X10*3/uL Baso # (Auto) (0.0-0.2) X10*3/uL Abs Immat Gran (auto) (0.00-0.03) X10*3/uL Absolute Neuts (auto) (2.0-8.3) X10*3/uL Absolute Nucleated RBC (0.0-0.012) X10*3/uL Nucleated RBC % (auto) (0.0-0.2) /100WBC Smear Tech's Comments PT 16.7 H (10.8-13.0) SEC INR 1.4 H (0.9-1.1) APTT 31.0 (24.1-38.0) SEC Sodium (135-145) mmol/L Potassium (3.3-5.1) mmol/l Chloride (96-108) mmol/L Carbon Dioxide (22-29) mmol/L Anion Gap (12-20) BUN (9-16) mg/dL Creatinine (0.5-1.4) mg/dL Estim Creat Clear Calc Estimated GFR Random Glucose (60-115) mg/dL Lactic Acid (0.5-2.0) mmol/L Calcium (8.4-10.2) mg/dL Total Bilirubin (0.0-1.0) mg/dL Direct Bilirubin (0.0-0.5) mg/dL AST (5-37) U/L ALT (0-40) U/L Alkaline Phosphatase (39-117) U/L Total Protein (6.5-8.0) g/dL Albumin (3.5-5.0) g/dL Coronavirus (PCR) POSITIVE A (Negative) Influenza Type A (PCR) NEGATIVE (Negative) Influenza Type B (PCR) NEGATIVE (Negative) RSV RNA Qual (PCR) NEGATIVE (Negative) Critical Care Time Critical Care Time Critical Care Time: Yes Total Critical Care Time: 45 Attestation: This patient required 45 minutes of critical care time provided by [facility] secondary to his severe sepsis. Discharge Plan Discharge Clinical Impression: Sepsis, Pneumonia Patient Disposition: Admitted As Inpatient Prescriptions: No Action sertraline 100 mg Tablet 100 mg PO DAILY RF: 0 ondansetron 8 mg Tablet,Disintegrating 8 mg PO Q8H PRN (Reason: Nausea) RF: 0 tamsulosin 0.4 mg Capsule 0.4 mg PO DAILY RF: 0 chlorpromazine 25 mg Tablet 25 mg PO Q4H PRN (Reason: Hiccups) RF: 0 metformin 1,000 mg Tablet 1,000 mg PO BID RF: 0 dexamethasone 4 mg Tablet 4 mg PO BID RF: 0 losartan-hydrochlorothiazide 50-12.5 mg Tablet 1 tab PO DAILY RF: 0 melatonin 5 mg Tablet 5 mg PO BEDTIME PRN (Reason: Insomnia) RF: 0 esomeprazole magnesium 20 mg Tablet,Delayed Release (Dr/Ec) 20 mg PO DAILY RF: 0 famotidine 20 mg Tablet 20 mg PO DAILY RF: 0 atorvastatin 80 mg Tablet 80 mg PO BEDTIME RF: 0 aspirin 81 mg Tablet 81 mg PO DAILY RF: 0 dulaglutide 1.5 mg/0.5 mL Pen Injector 1.5 mg SUBCUT QWEEK RF: 0 ondansetron HCl [Zofran] 4 mg Tablet 8 mg PO BID-TID Qty: 60 RF: 6 chlorpromazine 25 mg Tablet 25 mg PO Q6H PRN (Reason: Hiccups) Qty: 60 RF: 3
--- NOTE | 2020-09-30 09:31 | PC.NURSE ---
PER ER MD WHO SPOKE TO PT'S GRANDSON, PT HAS A PROD COUGH AND HAS NOT BEEN EATING DRINKING FOR 4 DAYS.
--- NOTE | 2020-09-30 09:38 | CT_ITS ---
EXAMINATION: CT HEAD WITHOUT CONTRAST CLINICAL INFORMATION: Lethargy and headache. Metastatic colon cancer. Rule out bleed. COMPARISON: None TECHNIQUE: Contiguous axial imaging was performed from the skull base to vertex without intravenous administration of contrast. This CT examination was performed using dose optimization techniques as appropriate, variously including the following: *Automated exposure control *Adjustment of mA and/or kV according to patient size (this includes techniques or standardized protocols for targeted exams where dose is matched to indication/reason for exam; i.e. extremities or head) *Use of iterative reconstruction technique DLP: 1559 mGy-cm FINDINGS: Limited exam due to patient motion. There is no evidence of acute intracranial hemorrhage or territorial infarction. No abnormal mass effect or midline shift is seen. Catherine to white matter differentiation is well preserved. No extra-axial fluid collections are identified. The ventricles are normal in size. There is no abnormal attenuation within the brain parenchyma. The osseous structures and soft tissues are normal. The mastoid air cells and visualized portions of the paranasal sinuses are well aerated. CT/CT head/brain wo con IMPRESSION: No acute intracranial process seen.
[2020-09-30] MEDS: Acetaminophen 325 MG TABLET 975 MG PO (10:04)
[2020-09-30] MEDS: Metoclopramide HCl 10 MG/2 ML VIAL IVPUSH (10:05)
[2020-09-30 10:17] LABS: Hematocrit 28.7 % (42-52); Hemoglobin 9.5 g/dl (14.0-18.0); Imm Gran Abs Auto 0.01 X10*3/uL (0.00-0.03); Imm Gran Pct Auto 1.2 % (0.0-0.4); Lymphocytes Absolute Auto 0.4 X10*3/uL (1.2-4.9); Lymphocytes Percent Auto 50.6 % (20-40); MANUAL DIFF FLAG SCAN; Mean Corpuscular HGB Conc 33.1 g/dl (31.0-36.0); Mean Corpuscular Hemoglobin 30.4 pg (27.0-33.0); Mean Platelet Volume 10.5 fL (9.4-12.4); Monocytes Absolute Auto 0.2 X10*3/uL (0.1-1.2); Monocytes Percent Auto 17.6 % (2-11); Neutrophils Absolute Auto 0.3 X10*3/uL (2.0-8.3); Neutrophils Percent Auto 30.6 % (45-73); Platelet Count 119 X10*3/uL (160-400); Red Blood Count 3.12 X10*6/uL (4.60-5.80); Red Cell Distribution Width 15.1 % (11.0-16.0); SCAN SMEAR FLAG 1
[2020-09-30 10:25] LABS: INTERNATIONAL NORM RATIO 1.4 (0.9-1.1); Prothrombin Time 16.7 SEC (10.8-13.0)
[2020-09-30 10:29] LABS: White Blood Count 0.9 X10*3/uL (4.8-10.8)
[2020-09-30 10:30] LABS: Lactic Acid 2.2 mmol/L (0.5-2.0)
[2020-09-30] MEDS: Piperacillin Sodium/Tazobactam 4.5 GM in 0.9 % Sodium Chloride 100 ML IV (10:56)
[2020-09-30 10:57] LABS: Alanine Aminotransferase 14 U/L (0-40); Albumin Level 2.5 g/dL (3.5-5.0); Alkaline Phosphatase 97 U/L (39-117); Anion Gap 16 (12-20); Aspartate Amino Transferase 40 U/L (5-37); Bilirubin Direct < 0.2 mg/dL (0.0-0.5); Bilirubin Total 0.3 mg/dL (0.0-1.0); Blood Urea Nitrogen 18 mg/dL (9-16); Calcium 7.1 mg/dL (8.4-10.2); Carbon Dioxide 22 mmol/L (22-29); Chloride 98 mmol/L (96-108); Creatinine Clr Calc Pharmacy 55.9; Estimated Glomerular Filt Rate > 60; Glucose Random 306 mg/dL (60-115); Potassium 4.7 mmol/l (3.3-5.1); Sodium 131 mmol/L (135-145); Total Protein 5.4 g/dL (6.5-8.0)
[2020-09-30 11:00] LABS: SLIDE REVIEW VERIFIED
[2020-09-30 11:09] LABS: Influenza A PCR NEGATIVE (Negative); Influenza B PCR NEGATIVE (Negative); Resp Syncy Virus RNA Qual PCR NEGATIVE (Negative); SARS COV2 PCR INHOUSE POSITIVE (Negative)
[2020-09-30] MEDS: Mag&Al/Sim/Diphenhyd/Lidocaine 10 ML ORAL.SUSP PO ×2 (11:22→18:49)
[2020-09-30 12:05] LABS: Reflex Lactate? Lactic Acid Added
[2020-09-30] MEDS: 0.9 % Sodium Chloride 1,000 ML 999 ML IV (12:07)
--- NOTE | 2020-09-30 12:14 | PC.NURSE ---
Pt is alert, oriented to time and person, not place. Son updated by MD, pt and son aware and agreeable to plan of care. IV fluids infusing. pending admission
--- NOTE | 2020-09-30 13:10 | PC.NURSE ---
called x1 for report
--- NOTE | 2020-09-30 14:00 | PC.NURSE ---
x2 call for report.
[2020-09-30] MEDS: 0.9 % Sodium Chloride Flush 3 ML SYRINGE IVFLUSH (16:35)
[2020-09-30] MEDS: 0.9 % Sodium Chloride 1,000 ML 100 ML IVCONT (16:35)
[2020-09-30] MEDS: Tamsulosin HCL 0.4 MG CAPSULE PO (16:36)
[2020-09-30] MEDS: Piperacillin Sodium/Tazobactam 3.375 GM in 0.9 % Sodium Chloride 50 ML IV (18:17)
[2020-09-30 18:38] LABS: Glucose, Whole Blood 252 mg/dL (60-115)
--- NOTE | 2020-09-30 19:56 | HP_ITS ---
DATE OF SERVICE: 09/30/2020 CHIEF COMPLAINT: Generalized weakness. HISTORY OF PRESENTING ILLNESS: This is a 80-year-old gentleman with past medical history significant for metastatic colon cancer, currently receiving chemotherapy under care of Dr. Christin Barnes. The patient was brought in to [facility] since he was too weak to get out of bed and go for his scheduled chemo treatment today. Most of the history is obtained by patient's grandson through phone since patient is unable to provide a detailed history. According to the grandson, patient has been complaining of on and off sore throat for last several weeks since chemotherapy was started. He is also suffering with dry cough. This morning, the patient was very weak, confused at home, unable to get out of bed. He was very lethargic, so therefore family called the ambulance and the patient was brought into the ER. In the emergency room, the patient initially was very lethargic, confused, unable to provide detailed history, although he did complain of sore throat. His workup revealed a WBC count of 0.9 with an ANC of 0.3. He had a hematocrit of 28.7. Chem profile with sodium of 131. His kidney function was stable. His lactic acid was elevated at 2.2. He was febrile with a temperature of 103. He was also tachycardic and a chest x-ray revealed a questionable left lung base infiltrate. A CT head showed no acute abnormality. The patient was diagnosed to have sepsis related to pneumonia. Later, a COVID-19 test also came back positive. The patient is now being admitted to [facility] with sepsis related to COVID-19 infection and pneumonia. Patient currently is receiving IV fluids. PAST MEDICAL HISTORY: Significant for: 1. Colon cancer status post resection diagnosed in 2013. 2. History of hyperlipidemia. 3. History of hypertension. 4. History of diabetes mellitus. 5. History of depression. SOCIAL HISTORY: The patient lives with grandson. No history of smoking. No history of alcohol abuse. FAMILY HISTORY: Unable to obtain due to the patient's confusion. REVIEW OF SYSTEMS: Unable to obtain secondary to the patient's sore throat, confusion and lethargy. PHYSICAL EXAMINATION: GENERAL: The patient is resting in bed. Does not appear to be in acute distress. VITAL SIGNS: His current vitals are BP 90/47 with a pulse of 90, temp of 103, respiratory rate of 20. HEENT: Pupils equal, round, and reactive to light and accommodation. Oral mucosa is dry with couple lesions on the margins of the tongue. NECK: Supple. LUNGS: Diminished breath sounds bilaterally. ABDOMEN: Soft, nontender. Bowel sounds are audible. HEART: Tachy, regular. EXTREMITIES: Without clubbing, cyanosis, or edema. SKIN: Has no rashes. NEURO EXAMINATION: The patient is moving all 4 extremities. Unable to do a detailed neuro exam due to patient's condition. LABORATORY DATA: Showed a WBC 0.9, hematocrit 28.7, and a platelet count of 119. Sodium 131, potassium 4.7, BUN 18, creatinine of 1.05. Lactic acid 2.2, calcium of 7.1, AST 40, total protein 5.4, and an albumin of 2.5. Head CT is unremarkable. Chest x-ray as mentioned showed infiltrate at left lung base. Two sets of blood cultures have been obtained and are pending. ALLERGIES: THE PATIENT HAS NO KNOWN DRUG ALLERGIES. HOME MEDICATIONS: Aspirin 81 mg daily, Lipitor 40 mg at bedtime, dexamethasone 4 mg b.i.d. dulaglutide 1.5 mg subcutaneously every Mondays, esomeprazole 40 mg daily, hydrochlorothiazide 12.5 mg daily, losartan 50 mg daily, melatonin 5 mg at bedtime as needed, metformin 1000 mg by mouth b.i.d., Zofran 8 mg every 8 hours as needed, Zoloft 100 mg daily, and Flomax 0.4 mg at a.m. ASSESSMENT AND PLAN: This is a 80-year-old gentleman, currently undergoing chemotherapy for metastatic colon cancer, presented to [facility] due to generalized weakness, confusion, and has been diagnosed to have sepsis related to COVID-19 infection and pneumonia. The patient will be admitted to intermediate care unit for close monitoring and treatment. PROBLEM LIST: 1. Sepsis due to COVID-19/pneumonia. The patient meets sepsis criteria secondary to fever, tachycardia, tachypnea, sepsis. Focused examination obtained. The patient has been placed on IV vancomycin and IV Zosyn. We will continue supportive care with IV fluids, antiemetics, pain medications. We will follow 2 sets of blood cultures. 2. Acute toxic encephalopathy. Related to sepsis, COVID-19 infection. As above, the patient will be treated with antibiotic and supportive care. 3. Lactic acidosis secondary to sepsis. I will repeat lactic acid. Continue IV fluids. 4. History of hypertension. We will hold the patient's home medications including hydrochlorothiazide and losartan due to low blood pressure. 5. Diabetes mellitus with elevated blood sugar, likely related to dexamethasone. The patient will be placed on insulin sliding scale. We will hold metformin due to sepsis. 6. History of depression. The patient will be continued on sertraline. 7. History of BPH. The patient will be continued on Flomax. 8. Mucositis, likely related to chemotherapy. The patient will be placed on Magic mouthwash. 9. Code status has been discussed with the patient's grandson as well as patient's healthcare proxy, Mario Joshi, phone #[phone]. They wishes patient to be full code. They will discuss among the family members and will get back to us. 10. Neutropenic fever likely related to COVID-19 infection as well as pneumonia and currently receiving chemotherapy. The patient will be treated with IV antibiotics and will follow CBC closely. MD CHERI Cheng/NIKKI / [phone]
[2020-09-30 20:48] LABS: Glucose, Whole Blood 233 mg/dL (60-115)
[2020-09-30] MEDS: Insulin Lispro 100 UNIT/ML 3 ML VIAL SUBCUT (21:01)
[2020-09-30] MEDS: dexAMETHasone 4 MG TABLET PO (21:01)
[2020-10-01] VITALS (7 sets, daily range): BP systolic 100–128; BP diastolic 59–70; PULSE 70–77; RESP 18–20; TEMP 36.1–37.2; O2SAT 96–99
[2020-10-01] MEDS: Mag&Al/Sim/Diphenhyd/Lidocaine 10 ML ORAL.SUSP PO ×4 (00:41→18:13)
[2020-10-01] MEDS: Piperacillin Sodium/Tazobactam 3.375 GM in 0.9 % Sodium Chloride 50 ML IV ×4 (00:41→18:13)
[2020-10-01] MEDS: 0.9 % Sodium Chloride Flush 3 ML SYRINGE IVFLUSH ×3 (00:41→21:26)
[2020-10-01] MEDS: 0.9 % Sodium Chloride 1,000 ML 100 ML IVCONT ×2 (02:43→18:13)
[2020-10-01 06:35] LABS: Hemoglobin 9.2 g/dl (14.0-18.0); Mean Corpuscular Volume 92.3 fL (80-98); WBC ABN SCTR FOR CBC 1
[2020-10-01 06:37] LABS: Hematocrit 27.6 % (42-52); Mean Corpuscular HGB Conc 33.3 g/dl (31.0-36.0); Mean Corpuscular Hemoglobin 30.8 pg (27.0-33.0); Mean Platelet Volume 10.4 fL (9.4-12.4); Platelet Count 92 X10*3/uL (160-400); Red Blood Count 2.99 X10*6/uL (4.60-5.80); Red Cell Distribution Width 15.1 % (11.0-16.0)
[2020-10-01 06:46] LABS: White Blood Count 0.5 X10*3/uL (4.8-10.8)
[2020-10-01 07:07] LABS: Anion Gap 15 (12-20); Blood Urea Nitrogen 13 mg/dL (9-16); Calcium 6.8 mg/dL (8.4-10.2); Carbon Dioxide 18 mmol/L (22-29); Chloride 106 mmol/L (96-108); Creatinine Clr Calc Pharmacy 81.5; Estimated Glomerular Filt Rate > 60; Glucose Random 234 mg/dL (60-115); Potassium 4.3 mmol/l (3.3-5.1); Sodium 135 mmol/L (135-145)
[2020-10-01] MEDS: Insulin Lispro 100 UNIT/ML 3 ML VIAL SUBCUT ×4 (07:32→21:25)
[2020-10-01] MEDS: Sertraline HCL 100 MG TABLET PO (07:32)
[2020-10-01] MEDS: dexAMETHasone 4 MG TABLET PO ×2 (07:32→21:25)
[2020-10-01 07:46] LABS: Band Neutrophils Percent 0 % (3-5); Basophils Percent Manual 1 % (0-1); Lymphocytes Absolute Manual 0.2 X10*3/uL (0.6-4.8); Lymphocytes Percent Manual 44 % (20-40); Monocytes Percent Manual 8 % (2-11); Neutrophils Absolute Manual 0.2 X10*3/uL (2.2-7.9); Neutrophils Percent Manual 47 % (45-73); RBC Morphology NOTED
[2020-10-01 07:48] LABS: Burr Cells 3+
[2020-10-01 07:49] LABS: Microcytosis 2+; Platelet Estimate DECREASED (NORMAL); Platelet Morphology Comment NORMAL; Spherocytes 3+
[2020-10-01 08:20] LABS: Glucose, Whole Blood 256 mg/dL (60-115)
--- NOTE | 2020-10-01 08:53 | PC.NURSE ---
Pt weaned off of 1L NC to R/A and has maintained an O2 saturation of 97-98% while on R/A. Will continue to monitor.
[2020-10-01 11:39] LABS: Glucose, Whole Blood 250 mg/dL (60-115)
--- NOTE | 2020-10-01 11:43 | MHC.CM.PN ---
IMM 10/01/20 MALE 80 DX SEPSIS COVID + HX COLON CA. PATIENT LIVES W FAMILY. HE HAS CREDIT COLLECTOR SERVICES THRU [facility]. DP HOME WITH [facility] AND [facility]EDIT COLLECTOR SERVICES. CREDIT COLLECTOR WILL PROVIDE TRANSPORTATION.
--- NOTE | 2020-10-01 11:45 | P.PNIM_ITS ---
Subjective Subjective Date of Service: 10/02/20 Interval History: patient complaining persistent sore throat, denies any other symptoms of nausea, abdominal pain or shortness of breath. Review of Systems General no headache,no dizziness no fever chills. CVS no chest pain, no palpitation. Respiratory dry cough,no sob. Gastrointestinal no nausea, no vomiting, no abdominal pain Physical Exam Vital Signs: Vital Signs: Last Vital Signs Temp 98.9 F 10/01/20 08:00 Pulse 77 10/01/20 08:00 Resp 20 10/01/20 08:00 BP 100/59 L 10/01/20 08:00 Pulse Ox 97 10/01/20 08:50 Body Mass Index 21.9 General patient resting comfortably in no acute distress. Neck supple . Oral mucosa moist,lesions lateral margins of tongue improved CVS regular rate rhythm, Respiratory lungs clear to auscultationdiminished ,no respiratory distress Gastrointestinal abdomen soft, nontender, bowel sounds audible. Extremities no clubbing, no cyanosis or edema. Neuro nonfocal . Skin no rash Objective Data Current Medications Generic Name Dose Route Start Last Admin Trade Name Freq PRN Reason Stop Dose Admin Acetaminophen 650 mg 09/30/20 15:19 Acetaminophen 325 Mg Tablet PO Q6H PRN Pain, Mild (Pain Scale 1-3) Dexamethasone 4 mg 09/30/20 21:00 10/01/20 07:32 Dexamethasone 4 Mg Tablet PO 4 mg BID JEROD Administration Piperacillin Sod/Tazobactam 50 mls @ 100 mls/hr 09/30/20 12:45 10/01/20 06:29 Sod 3.375 gm/ Sodium Chloride IV Infused Q6H JEROD Infusion Sodium Chloride 1,000 mls @ 100 mls/hr 09/30/20 15:19 10/01/20 10:57 Ns IVCONT Not Given .Q10H JEROD Vancomycin HCl 1,000 mg/ 280 mls @ 186.667 mls/hr 10/01/20 12:00 Vancomycin HCl 500 mg/ Sodium IV Chloride Q24H JEROD Insulin Human Lispro 0 unit 09/30/20 21:00 10/01/20 07:32 Insulin Lispro 100 Unit/Ml 3 Ml Vial SUBCUT 6 unit QIDACHS JEROD Administration Protocol Lidocaine/Diphenhydr/Alum/Mg/Simeth 10 ml 09/30/20 18:15 10/01/20 05:56 Mag&Al/Sim/Diphenhyd/Lidocaine 10 Ml Oral.Susp PO 10 ml Q6H JEROD Administration Protocol Ondansetron HCl 4 mg 09/30/20 15:19 Ondansetron Hcl 4 Mg/2 Ml Vial IVPUSH Q8H PRN Nausea and Vomiting Pharmacy Consult 1 each 09/30/20 11:28 Consult Rx Perform Med Rec MISCELLANE ONCE PRN Consult order Sertraline HCl 100 mg 10/01/20 09:00 10/01/20 07:32 Sertraline Hcl 100 Mg Tablet PO 100 mg DAILY JEROD Administration Sodium Chloride 3 ml 09/30/20 16:00 10/01/20 07:32 0.9 % Sodium Chloride Flush 3 Ml Syringe IVFLUSH 3 ml QSHIFT JEROD Administration Tamsulosin HCl 0.4 mg 09/30/20 17:00 09/30/20 16:36 Tamsulosin Hcl 0.4 Mg Capsule PO 0.4 mg DAILY@1700 JEROD Administration Labs CBC & Chem 7: 10/02/20 05:29 10/02/20 05:29 Assessment and Plan (1) Sepsis: Status: Acute (2) Pneumonia: Problem details: Believe lobar pneumonia most prominent concern There could be MRSA,gram negative Most likely post COVID Patient guarded prognosis Status: Acute (3) Colon cancer metastasized to liver: Status: Acute (4) COVID-19 virus infection: Status: Acute (5) Neutropenia with fever: Status: Acute Assessment and Plan: 1. Sepsis due to COVID-19/pneumonia. all symptoms of sepsis including fever tachycardia and tachypnea resolved, will continue IV Vanco and Zosyn, blood cultures pending, continue supportive care and follow clinical course, oxygenation stable, on steroid as part of chemotherapy, will continue current dose. 2. Acute toxic encephalopathy. Related to sepsis, COVID-19 infection. resolved patient seems to be awake alert answering questions appropriately 3. Lactic acidosis secondary to sepsis. resolved 4. History of hypertension. noted to be hypotensive, required 4 L of IV fluid current blood pressure is stable will continue to hold home medications in cluding hydrochlorothiazide and losartan 5. Diabetes mellitus with elevated blood sugar, likely related to dexamethasone. cont. insulin sliding scale, diabetic diet. will resume metformin . 6. History of depression. continue sertraline. 7. History of BPH. on Flomax. 8. Mucositis, likely related to chemotherapy. continue Magic mouthwash. 9. Code status has been discussed with the patient's grandson as well as patient's healthcare proxy, Mario Joshi, phone #[phone]. They wishes patient to be full code for now. 10. Neutropenic fever likely related to COVID-19 infection as well chemotherapy. WBC drop down to 0.5 today, Continue IV antibiotics and will give granix 300mcg sc daily case d/w Dr Barnes. 11. sore throat question related to chemotherapy versus related to COVID-19 infection and mucositis will lozenges and continue supportive care.
--- NOTE | 2020-10-01 11:59 | MHC.CLN ---
RECOMMEND 1999 DM DIET WILL START GLUCERNA R/T INCREASED NUTRITION RISK R/T DX CA FOLLOWING
--- NOTE | 2020-10-01 14:56 | P.CNID_ITS ---
History of Present Illness Data of Consult Service Date: 10/01/20 Requesting physician: Lino Benites Primary Care Provider: None Physician HPI He presents to hospital with fever and shortness of breath. He has been getting chemotherapy for metastatic colon cancer and was too weak to go for chemotherapy He has WBC .9 and COVID positivity,negative in August He has no nausea or vomiting No one else is ill Review of Systems Review of Systems: General no headache,no dizziness no fever chills. CVS no chest pain, no palpitation. Respiratory dry cough,no sob. Gastrointestinal no nausea, no vomiting, no abdominal pain Yes Unobtainable due to mental status Constitutional: Constitutional: Reports weakness Neurologic: Reports as per HPI, Reports Abnormal speech present, Reports confusion and Reports weakness Psychiatric: Psychiatric: Reports confusion PMFSH Past Medical History Medical History Colon cancer Family History Family history: reviewed and not pertinent Social History Social History Household Members: Other Household Members Other:: Ex- Housing: House Do you presently have visiting nurse or other home services: No Smoking Status: Never smoker Use of substances other than those prescribed or required for medical reasons: No Have you been hit, kicked, punched, or otherwise hurt by someone within the past year? If so, by whom?: No Do you feel safe in your current relationship?: Yes Is there a partner from a previous relationship who is making you feel unsafe now?: No Are you made to feel afraid or neglected: No Advance Directives: No Advance Directives Information Provided: No Do you have thoughts of harming others: None Do you have a plan to hurt others: No Plan Recently lost weight without trying: No service: No Current occupational status: retired Meds Allergies Allergy/AdvReac Type Severity Reaction Status Date / Time No Known Allergies Allergy Unverified 07/25/20 16:22 [No Known Allergies*] MANUEL Adult Cup Supporter Allergy Unknown Uncoded 02/17/18 00:00 Home Medications Medication Instructions Recorded Confirmed Type aspirin 81 mg PO DAILY 08/13/20 09/30/20 History atorvastatin 80 mg PO BEDTIME 08/13/20 09/30/20 History dexamethasone 4 mg PO BID 08/13/20 09/30/20 History dulaglutide 1.5 mg SUBCUT MO@1000 08/13/20 09/30/20 History melatonin 5 mg PO BEDTIME PRN 08/13/20 09/30/20 History metformin 1,000 mg PO BIDWM 08/13/20 09/30/20 History ondansetron 8 mg PO Q8H PRN 08/13/20 09/30/20 History sertraline 100 mg PO DAILY 08/13/20 09/30/20 History tamsulosin 0.4 mg PO QPM 08/13/20 09/30/20 History esomeprazole magnesium 40 mg PO DAILY 09/30/20 09/30/20 History hydrochlorothiazide 12.5 mg PO QAM 09/30/20 09/30/20 History losartan 50 mg PO DAILY 09/30/20 09/30/20 History Physical Exam Vital Signs: Vital Signs: Last Vital Signs Temp 98.6 F 10/01/20 12:00 Pulse 70 10/01/20 12:00 Resp 20 10/01/20 12:00 BP 128/67 10/01/20 12:00 Pulse Ox 96 10/01/20 12:00 Body Mass Index 21.9 Const: General: confusion Nutritional Appearance: overweight Aldo entation/consciousness: confusion Limitations: other limitations (Answers questions slowly even with market research senior project manager, oriented to person ) HENMT: Head: Yes normal to inspection Ears: hearing grossly impaired General nose exam: Normal external nose present and Normal nares present Face and sinus: Yes normal facial exam Mouth: Normal oral and palatal mucosa present Throat: Yes posterior oropharynx normal Eyes: General: appearance normal, both eyes and all related structures Alignment and Position: alignment normal Eyelids: Yes eyelids normal Scl erae: sclerae normal Corneas: corneas normal Pupils: Equal, round and reactive pupils present Direct Ophthalmoscopy: normal light reflex Neck: Neck: Yes normal visual inspection, Yes trachea midline and Yes supple Thyroid: Thyroid normal Chest: Chest palpation & inspection: normal inspection of the chest and normal palpation of entire chest wall Resp: Effort & Inspection: normal respiratory effort Auscultation: crackles on the left at the base Cardio: Rate: regular rate Rhythm: regular rhythm Heart sounds: S1 normal heart sound present, S2 normal heart sound present and no murmurs GI: Inspection: Yes normal to inspection Palpation (GI): Soft to palpation and nontender Auscultation: normal bowel sounds : General: Yes no CVA tenderness Back/Spine/Pelvis: Back: no CVA tenderness Thoracic/Lumbar Spine: lumbar s sally tenderness Skin: General skin exam: no rashes or lesions noted Neuro: General: confusion Cranial nerves: Yes CN's II-XII intact bilater ally and Yes Equal, round and reactive pupils present Speech: Abnormal speech present Motor exam (neuro): 5/5 motor strength present throughout Extrem: General: Yes normal to inspection, Yes full ROM and Yes no pedal edema Psych: Appearance: well kempt Speech and movement: Slowed speech present (Psych) Assessment and Plan (1) Pneumonia: Qualifiers: Laterality: left Lung location: lower lobe of lung Pneumonia type: due to unspecified organism Qualified Code(s): J18.9 - Pneumonia, unspecified organism Problem details: Believe lobar pneumonia most prominent concern There could be MRSA,gram negative Most likely post COVID Patient guarded prognosis Status: Acute Would agree with Vancomycin and Zosyn Add Doxycycline 100 bid and check for Legionella Can continue Dexamethasone Prognosis guarded (2) Neutropenia with fever: Status: Acute (3) COVID-19 virus infection: Status: Acute Results Labs CBC & Chem 7: 10/01/20 05:48 10/01/20 05:48 Labs: Short CBC 10/01/20 Range/Units 05:48 WBC 0.5 L* (4.8-10.8) X10*3/uL Hgb 9.2 L (14.0-18.0) g/dl Hct 27.6 L (42-52) % Plt Count 92 L (160-400) X10*3/uL BMP 10/01/20 05:48 Sodium 135 Potassium 4.3 Chloride 106 Carbon Dioxide 18 L BUN 13 Creatinine 0.72 Calcium 6.8 L Microbiology Microbiology Results: Microbiology 09/30/20 10:48 Blood - Venous Blood Culture - Preliminary No growth after 24 hours. 09/30/20 10:39 Blood - Venous Blood Culture - Preliminary No growth after 24 hours.
[2020-10-01] MEDS: Tbo-Filgrastim 300 MCG/0.5 ML SYRINGE SUBCUT (15:15)
[2020-10-01] MEDS: Doxycycline Hyclate 100 MG in 0.9 % Sodium Chloride 250 ML 166.67 MG IV (15:24)
[2020-10-01] MEDS: Tamsulosin HCL 0.4 MG CAPSULE PO (16:39)
[2020-10-01 16:57] LABS: Glucose, Whole Blood 218 mg/dL (60-115)
[2020-10-01 18:36] LABS: Vancomycin Trough 18.5 mcg/mL (10.0-20.0)
[2020-10-01 20:34] LABS: Glucose, Whole Blood 202 mg/dL (60-115)
[2020-10-01] MEDS: vancomycin HCL 1,000 MG in 0.9 % Sodium Chloride 250 ML 270 MG IV (23:52)
[2020-10-02] MEDS: Piperacillin Sodium/Tazobactam 3.375 GM in 0.9 % Sodium Chloride 50 ML IV ×4 (01:27→18:53)
[2020-10-02 03:04] VITALS: BP 111/52; PULSE 70; RESP 18; TEMP 36.1; O2SAT 95
[2020-10-02] MEDS: Doxycycline Hyclate 100 MG in 0.9 % Sodium Chloride 250 ML 166.67 MG IV ×2 (04:42→16:02)
[2020-10-02 06:17] LABS: Hematocrit 26.6 % (42-52); Hemoglobin 9.2 g/dl (14.0-18.0); Mean Corpuscular HGB Conc 34.6 g/dl (31.0-36.0); Mean Corpuscular Hemoglobin 30.8 pg (27.0-33.0); Mean Platelet Volume 11.5 fL (9.4-12.4); Platelet Count 115 X10*3/uL (160-400); Red Blood Count 2.99 X10*6/uL (4.60-5.80); Red Cell Distribution Width 15.2 % (11.0-16.0); WBC ABN SCTR FOR CBC 1
[2020-10-02 06:28] LABS: White Blood Count 2.6 X10*3/uL (4.8-10.8)
[2020-10-02] MEDS: Mag&Al/Sim/Diphenhyd/Lidocaine 10 ML ORAL.SUSP PO ×2 (06:50→11:58)
[2020-10-02 06:54] LABS: Anion Gap 13 (12-20); Blood Urea Nitrogen 12 mg/dL (9-16); Carbon Dioxide 18 mmol/L (22-29); Chloride 110 mmol/L (96-108); Creatinine Clr Calc Pharmacy 80.4; Estimated Glomerular Filt Rate > 60; Glucose Random 182 mg/dL (60-115); Potassium 3.4 mmol/l (3.3-5.1); Sodium 138 mmol/L (135-145)
[2020-10-02 07:03] LABS: Band Neutrophils Percent 15 % (3-5); Lymphocytes Absolute Manual 0.4 X10*3/uL (0.6-4.8); Lymphocytes Percent Manual 15 % (20-40); Monocytes Absolute Manual 0.2 X10*3/uL (0.0-1.2); Monocytes Percent Manual 7 % (2-11); Neutrophils Percent Manual 63 % (45-73)
[2020-10-02 07:04] LABS: Platelet Estimate DECREASED (NORMAL); Platelet Morphology Comment NORMAL
[2020-10-02 07:06] LABS: RBC Morphology NORMAL
[2020-10-02 08:00] VITALS: BP 125/69; PULSE 70; RESP 20; TEMP 36.8; O2SAT 98
[2020-10-02 08:12] LABS: Glucose, Whole Blood 227 mg/dL (60-115)
[2020-10-02] MEDS: Insulin Lispro 100 UNIT/ML 3 ML VIAL SUBCUT ×3 (08:54→20:42)
[2020-10-02] MEDS: 0.9 % Sodium Chloride Flush 3 ML SYRINGE IVFLUSH ×2 (08:55→16:02)
[2020-10-02] MEDS: Sertraline HCL 100 MG TABLET PO (08:55)
[2020-10-02] MEDS: dexAMETHasone 4 MG TABLET PO ×2 (08:55→20:31)
--- NOTE | 2020-10-02 11:33 | MHC.CM.PN ---
The goal for dc continues to be for Patient to return home with resumption of his [employer] services. Patient is Covid (+) and appears to still be symptomatic. CM will continue to follow for dc planning and to monitor for need to adjust the dc plan.
[2020-10-02 11:44] VITALS: BP 127/57; PULSE 74; RESP 20; TEMP 36.8; O2SAT 97
[2020-10-02 11:50] LABS: Glucose, Whole Blood 242 mg/dL (60-115)
[2020-10-02 12:18] LABS: Vancomycin Random 16.6 mcg/mL (15-20)
[2020-10-02] MEDS: 0.9 % Sodium Chloride 1,000 ML 100 ML IVCONT (13:00)
[2020-10-02] MEDS: vancomycin HCL 1,000 MG in 0.9 % Sodium Chloride 250 ML 270 MG IV (13:00)
[2020-10-02 15:15] VITALS: BP 109/58; PULSE 72; RESP 18; TEMP 36.2; O2SAT 99
[2020-10-02] MEDS: Tamsulosin HCL 0.4 MG CAPSULE PO (16:02)
--- NOTE | 2020-10-02 16:23 | P.PNIM_ITS ---
Subjective Subjective Date of Service: 10/02/20 Interval History: patient complaining of persistent sore throat with dysphagia feels a little better, patient very weak this a.m. requiring 2 assists for standing , later patient slipped out of recliner since he was trying to get back to bed had no head injury. Review of Systems General no headache, no dizziness, no fever, chills. CVS no chest pain, no palpitation. Respiratory no cough, no sob Gastrointestinal no nausea, no vomiting, no abdominal pain Physical Exam Vital Signs: Vital Signs: Last Vital Signs Temp 97.1 F 10/02/20 15:15 Pulse 72 10/02/20 15:15 Resp 18 10/02/20 15:15 BP 109/58 L 10/02/20 15:15 Pulse Ox 99 10/02/20 15:15 Body Mass Index 21.9 General patient sitting on commode, in no acute distress. Oral mucosa moist tongue with no lesions, back of throat un able to visualize Neck is supple no JVD. CVS regular rate rhythm, Respiratory lungs diminished breath sound, no respiratory distress, no wheeze, no rhonchi. Gastrointestinal abdomen soft, nontender, bowel sounds audible, no guarding , no rigidity. Extremities no clubbing cyanosis or edema. Neuro nonfocal patient moving all 4 extremity, speech clear. Skin no rash Objective Data Current Medications Generic Name Dose Route Start Last Admin Trade Name Freq PRN Reason Stop Dose Admin Acetaminophen 650 mg 09/30/20 15:19 Acetaminophen 325 Mg Tablet PO Q6H PRN Pain, Mild (Pain Scale 1-3) Benzocaine 1 lozenge 10/01/20 11:45 Throat Lozenge, Medicated Lozenge MUCOUS MEM Q2H PRN Sore Throat Dexamethasone 4 mg 09/30/20 21:00 10/02/20 08:55 Dexamethasone 4 Mg Tablet PO 4 mg BID JEROD Administration Piperacillin Sod/Tazobactam 50 mls @ 100 mls/hr 09/30/20 12:45 10/02/20 13:01 Sod 3.375 gm/ Sodium Chloride IV Infused Q6H JEROD Infusion Sodium Chloride 1,000 mls @ 100 mls/hr 09/30/20 15:19 10/02/20 13:00 Ns IVCONT 100 mls/hr .Q10H JEROD Administration Doxycycline Hyclate 100 mg/ 250 mls @ 166.67 mls/hr 10/01/20 16:00 10/02/20 16:02 Sodium Chloride IV 166.67 mls/hr Q12H JEROD Administration Vancomycin HCl 1,000 mg/ 270 mls @ 270 mls/hr 10/02/20 00:00 10/02/20 15:24 Sodium Chloride IV Infused Q12H JEROD Infusion Insulin Human Lispro 0 unit 09/30/20 21:00 10/02/20 11:57 Insulin Lispro 100 Unit/Ml 3 Ml Vial SUBCUT 4 unit QIDACHS JEROD Administration Protocol Lidocaine/Diphenhydr/Alum/Mg/Simeth 10 ml 09/30/20 18:15 10/02/20 11:58 Mag&Al/Sim/Diphenhyd/Lidocaine 10 Ml Oral.Susp PO 10 ml Q6H JEROD Administration Protocol Ondansetron HCl 4 mg 09/30/20 15:19 Ondansetron Hcl 4 Mg/2 Ml Vial IVPUSH Q8H PRN Nausea and Vomiting Pharmacy Consult 1 each 09/30/20 11:28 Consult Rx Perform Med Rec MISCELLANE ONCE PRN Consult order Sertraline HCl 100 mg 10/01/20 09:00 10/02/20 08:55 Sertraline Hcl 100 Mg Tablet PO 100 mg DAILY JEROD Administration Sodium Chloride 3 ml 09/30/20 16:00 10/02/20 16:02 0.9 % Sodium Chloride Flush 3 Ml Syringe IVFLUSH 3 ml QSHIFT JEROD Administration Tamsulosin HCl 0.4 mg 09/30/20 17:00 10/02/20 16:02 Tamsulosin Hcl 0.4 Mg Capsule PO 0.4 mg DAILY@1700 JEROD Administration Tbo-Filgrastim 300 mcg 10/01/20 12:45 10/02/20 12:01 Tbo-Filgrastim 300 Mcg/0.5 Ml Syringe SUBCUT Not Given DAILY [facility] Labs CBC & Chem 7: 10/02/20 05:29 10/02/20 05:29 Microbiology Microbiology Results: Microbiology 09/30/20 10:48 Blood - Venous Blood Culture - Preliminary No growth after 48 hours. 09/30/20 10:39 Blood - Venous Blood Culture - Preliminary No growth after 48 hours. Assessment and Plan (1) Neutropenia with fever: Status: Acute (2) COVID-19 virus infection: Status: Acute (3) Sepsis: Status: Acute (4) Pneumonia: Problem details: Believe lobar pneumonia most prominent concern There could be MRSA,gram negative Most likely post COVID Patient guarded prognosis Status: Acute (5) Colon cancer metastasized to liver: Status: Acute Assessment and Plan: 1. Sepsis due to COVID-19/pneumonia. all symptoms of sepsis including fever tachycardia and tachypnea resolved, on IV Vanco , Zosyn, and doxycycline blood cultures negative, continue supportive care and follow clinical course, oxygenation stable, on steroid as part of chemotherapy, will continue current dose. Vanco random 16.6, Legionella antigen pend. patient oxygenation 99% on room air will DC IV fluid. will DC IV vancomycin with no prior history of MRSA infection. 2. Acute toxic encephalopathy. Related to sepsis, COVID-19 infection. resolved patient seems to be awake alert answering questions appropriately, case discussed with patient's healthcare proxy Mario Joshi he admits that patient has difficulty following instructions and sometimes gets confused so seems to be at baseline. 3. Lactic acidosis secondary to sepsis. resolved 4. History of hypertension. noted to be hypotensive, required 4 L of IV fluid current blood pressure is stable will continue to hold home medications incl uding hydrochlorothiazide and losartan 5. Diabetes mellitus with elevated blood sugar, likely related to dexamethasone. cont. insulin sliding scale, diabetic diet and metformin . 6. History of depression. continue sertraline. 7. History of BPH. on Flomax. 8. Mucositis, likely related to chemotherapy. continue Magic mouthwash. 9. Code status has been discussed with the patient's grandson as well as patient's healthcare proxy, Mario Joshi, phone #[phone]. They wishes patient to be full code for now. 10. Neutropenic fever likely related to COVID-19 infection as well chemotherapy. WBC improved to 2.6 granix 300mcg sc daily 11. sore throat question related to chemotherapy versus related to COVID-19 infection and mucositis continue lozenges, Magic mouthwash and continue suppo rtive care.
[2020-10-02 16:27] LABS: Glucose, Whole Blood 159 mg/dL (60-115)
--- NOTE | 2020-10-02 19:37 | PC.NURSE ---
1415 PATIENT FOUND ON FLOOR SITTING IN FRONT OF THE RECLINER. TWO MAX ASSIST AT BASELINE. SAFELY BROUGHT BACK TO THE BED. VSS. HOSPITALIST AND NURSING MARKETING STRATEGY ANALYST MADE AWARE. PT WITH NO APPARENT INJURY. DENIES COMPLAINTS. INCIDENT REPORT FILED. TELESITTER PLACED IN ROOM. PATIENT ALREADY LOCATED ACROSS NURSING STATION. CONTINUE TO REORIENT TO ROOM AND USE OF CALL BILLINGS.
[2020-10-02 20:00] VITALS: BP 139/72; PULSE 77; RESP 18; TEMP 36.2
[2020-10-02 20:39] LABS: Glucose, Whole Blood 170 mg/dL (60-115)
[2020-10-02] MEDS: traZODone HCL 25 MG HALFTAB PO (22:28)
[2020-10-03] VITALS: BP 122/60; PULSE 70; RESP 18; TEMP 36.2; O2SAT 96
[2020-10-03] MEDS: 0.9 % Sodium Chloride Flush 3 ML SYRINGE IVFLUSH ×4 (00:12→20:38)
[2020-10-03] MEDS: Piperacillin Sodium/Tazobactam 3.375 GM in 0.9 % Sodium Chloride 50 ML IV ×4 (00:12→18:15)
[2020-10-03] MEDS: Mag&Al/Sim/Diphenhyd/Lidocaine 10 ML ORAL.SUSP PO (00:13)
[2020-10-03 02:59] VITALS: BP 139/63; PULSE 84; RESP 18; TEMP 36.1
[2020-10-03] MEDS: Doxycycline Hyclate 100 MG in 0.9 % Sodium Chloride 250 ML 166.67 MG IV ×2 (03:44→14:50)
--- NOTE | 2020-10-03 06:06 | PM.EVENT ---
Event Note Date of Service: 10/03/20 Event Note: Pt . Getting out of bed constabntly, distruptive of care. attempted to give hydroxyzine and trazodone, but pt refused po. will give IV benadryl and reassess
[2020-10-03] MEDS: diphenhydrAMINE HCL 50 MG/ML VIAL 25 MG IVPUSH (06:27)
--- NOTE | 2020-10-03 07:44 | PC.NURSE ---
7p-7a; 2200 Patient stated he wants to sleep. Hospitalist notified, new order for trazadone. 0500; patient barely slept, is restless, trying to get out of bed, tossing and turning. Dr. Vu notified, order for another dose trazadone and atarax, pt refused po meds, shaking his head no. Dr. Vu made aware pt refused po medications. New order for iv benadryl, ordered and administered. 0600; Patient also refused morning labs, hospitalist made aware.
[2020-10-03] MEDS: Insulin Lispro 100 UNIT/ML 3 ML VIAL SUBCUT (07:54)
[2020-10-03] MEDS: Sertraline HCL 100 MG TABLET PO (07:54)
[2020-10-03] MEDS: dexAMETHasone 4 MG TABLET PO ×2 (07:54→20:37)
[2020-10-03 08:00] VITALS: BP 126/66; PULSE 88; RESP 20; TEMP 36.1; O2SAT 96
[2020-10-03 08:00] LABS: Glucose, Whole Blood 256 mg/dL (60-115)
[2020-10-03] MEDS: Tbo-Filgrastim 300 MCG/0.5 ML SYRINGE SUBCUT (10:38)
[2020-10-03 11:19] LABS: Anion Gap 23 (12-20); Blood Urea Nitrogen 17 mg/dL (9-16); Calcium 7.3 mg/dL (8.4-10.2); Carbon Dioxide 13 mmol/L (22-29); Chloride 110 mmol/L (96-108); Creatinine Clr Calc Pharmacy 68.2; Estimated Glomerular Filt Rate > 60; Glucose Random 191 mg/dL (60-115); Potassium 3.7 mmol/l (3.3-5.1); Sodium 142 mmol/L (135-145)
--- NOTE | 2020-10-03 13:59 | P.PNIM_ITS ---
Subjective Subjective Date of Service: 10/03/20 Interval History: patient resting in bed, pleasantly confused, patient was noted to be restless last night, trying to get out of bed constantly was unable to take by mouth medication therefore was given IV Benadryl. Review of Systems Review of system unobtainable due to confusion Physical Exam Vital Signs: Vital Signs: Last Vital Signs Temp 97.0 F 10/03/20 08:00 Pulse 88 10/03/20 08:00 Resp 20 10/03/20 08:00 BP 126/66 10/03/20 08:00 Pulse Ox 96 10/03/20 08:00 Body Mass Index 21.9 General resting in bed, in no acute distress, pleasantly confused. Oral mucosa moist Neck is supple no JVD. CVS regular rate rhythm, Respiratory lungs diminished breath sound, no respiratory distress, no wheeze, no rhonchi. Gastrointestinal abdomen soft, nontender, bowel sounds audible. Extremities no clubbing cyanosis or edema. Neuro nonfocal, patient moving all 4 extremity, speech clear. Skin no rash Objective Data Current Medications Generic Name Dose Route Start Last Admin Trade Name Freq PRN Reason Stop Dose Admin Acetaminophen 650 mg 09/30/20 15:19 Acetaminophen 325 Mg Tablet PO Q6H PRN Pain, Mild (Pain Scale 1-3) Benzocaine 1 lozenge 10/01/20 11:45 Throat Lozenge, Medicated Lozenge MUCOUS MEM Q2H PRN Sore Throat Dexamethasone 4 mg 09/30/20 21:00 10/03/20 07:54 Dexamethasone 4 Mg Tablet PO 4 mg BID JEROD Administration Piperacillin Sod/Tazobactam 50 mls @ 100 mls/hr 09/30/20 12:45 10/03/20 13:16 Sod 3.375 gm/ Sodium Chloride IV Infused Q6H JEROD Infusion Doxycycline Hyclate 100 mg/ 250 mls @ 166.67 mls/hr 10/01/20 16:00 10/03/20 05:14 Sodium Chloride IV Infused Q12H JEROD Infusion Insulin Human Lispro 0 unit 09/30/20 21:00 10/03/20 12:40 Insulin Lispro 100 Unit/Ml 3 Ml Vial SUBCUT Not Given QIDACHS JEROD Protocol Lidocaine/Diphenhydr/Alum/Mg/Simeth 10 ml 09/30/20 18:15 10/03/20 12:40 Mag&Al/Sim/Diphenhyd/Lidocaine 10 Ml Oral.Susp PO Not Given Q6H [facility] Protocol Ondansetron HCl 4 mg 09/30/20 15:19 Ondansetron Hcl 4 Mg/2 Ml Vial IVPUSH Q8H PRN Nausea and Vomiting Pharmacy Consult 1 each 09/30/20 11:28 Consult Rx Perform Med Rec MISCELLANE ONCE PRN Consult order Sertraline HCl 100 mg 10/01/20 09:00 10/03/20 07:54 Sertraline Hcl 100 Mg Tablet PO 100 mg DAILY JEROD Administration Sodium Chloride 3 ml 09/30/20 16:00 10/03/20 07:55 0.9 % Sodium Chloride Flush 3 Ml Syringe IVFLUSH 3 ml QSHIFT JEROD Administration Tamsulosin HCl 0.4 mg 09/30/20 17:00 10/02/20 16:02 Tamsulosin Hcl 0.4 Mg Capsule PO 0.4 mg DAILY@1700 JEROD Administration Tbo-Filgrastim 300 mcg 10/01/20 12:45 10/03/20 10:38 Tbo-Filgrastim 300 Mcg/0.5 Ml Syringe SUBCUT 300 mcg DAILY JEROD Administration Trazodone HCl 25 mg 10/02/20 22:11 10/02/20 22:28 Trazodone Hcl 25 Mg Halftab PO 25 mg BEDTIME PRN Administration Insomnia Labs CBC & Chem 7: 10/03/20 15:09 10/03/20 15:09 Microbiology Microbiology Results: Microbiology 09/30/20 10:48 Blood - Venous Blood Culture - Preliminary No growth after 48 hours. 09/30/20 10:39 Blood - Venous Blood Culture - Preliminary No growth after 48 hours. Assessment and Plan (1) Neutropenia with fever: Status: Acute (2) COVID-19 virus infection: Status: Acute (3) Sepsis: Status: Acute (4) Pneumonia: Problem details: Believe lobar pneumonia most prominent concern There could be MRSA,gram negative Most likely post COVID Patient guarded prognosis Status: Acute (5) Colon cancer metastasized to liver: Status: Acute Assessment and Plan: 1. Sepsis due to COVID-19/pneumonia. all symptoms of sepsis including fever tachycardia and tachypnea resolved, on IV Zosyn, and doxycycline blood cultures negative, continue supportive care and follow clinical course, oxygenation stable, on steroid as part of chemotherapy, will continue current dose. Legionella antigen pend. patient oxygenation 99% on room air, being followed by infectious disease Dr. Rea feels symptoms related to pneumonia. 2. Acute toxic encephalopathy. Related to sepsis, COVID-19 infection, confusion resolved initially but patient since yesterday noticed to be pleasantly confused and at night was restless, likely sun downing, received Benadryl last night, labs today showed metabolic acidosis with elevated anion gap, renal function is stable, blood sugars elevated but not high enough for DKA, vitals are stable no hypoxia Will repeat labs, give IV fluid and follow clinical course. spoke with patient's healthcare proxy Mario Joshi he admits that patient has difficulty following instructions and sometimes gets confused but otherwise is appropriate . no fever chills, no hypoxia. 3. Lactic acidosis secondary to sepsis. resolved 4. History of hypertension. noted to be hypotensive, required 4 L of IV fluid current blood pressure is stable will continue to hold home medications including hydrochlorothiazide and losartan 5. Diabetes mellitus with elevated blood sugar, likely related to dexamethasone. cont. insulin sliding scale, diabetic diet ,hold metformin and dulaglutide that he takes at home 6. History of depression. continue sertraline. 7. History of BPH. on Flomax. 8. Mucositis, likely related to chemotherapy. continue Magic mouthwash. 9. Code status has been discussed with the patient's grandson as well as patient's healthcare proxy, Mario Joshi, phone #[phone]. They wishes patient to be full code for now. 10. Neutropenic fever likely related to COVID-19 infection as well chemotherapy. WBC improved to 2.6 day 3 on granix 300mcg sc daily will DC Granix today. 11. sore throat question related to chemotherapy versus related to COVID-19 infection and mucositis continue lozenges, Magic mouthwash and continue supportive care. 12. anion gap metabolic acidosis noted to have significant acidosis without sign ificant elevation in blood sugars renal function was stable patient in no respiratory distress with stable oxygenation therefore repeated labs that seems to have significantly improved, will continue above treatment and follow clinical course and electrolytes.
[2020-10-03] MEDS: 0.9 % Sodium Chloride 1,000 ML 80 ML IVCONT (14:51)
[2020-10-03 15:19] LABS: Hematocrit 29.5 % (42-52); Mean Corpuscular HGB Conc 33.9 g/dl (31.0-36.0); Mean Corpuscular Hemoglobin 30.7 pg (27.0-33.0); Mean Corpuscular Volume 90.5 fL (80-98); Mean Platelet Volume 10.9 fL (9.4-12.4); Platelet Count 161 X10*3/uL (160-400); Red Blood Count 3.26 X10*6/uL (4.60-5.80); Red Cell Distribution Width 15.9 % (11.0-16.0)
[2020-10-03 15:31] VITALS: BP 156/74; PULSE 91; RESP 20; TEMP 36.1; O2SAT 91
[2020-10-03 15:33] LABS: NRBC Pct Auto 1.2 /100WBC (0.0-0.2); WBC ABN SCTR FOR CBC 1
[2020-10-03 15:41] LABS: Band Neutrophils Percent 25 % (3-5); Lymphocytes Percent Manual 3 % (20-40); Metamyelocytes Percent 2 %; Monocytes Percent Manual 4 % (2-11); Neutrophils Percent Manual 66 % (45-73); Nucleated Red Blood Cells 5 /100WBC (0-0)
[2020-10-03 15:42] LABS: RBC Morphology NOTED
[2020-10-03 15:43] LABS: Macrocytosis 1+; Microcytosis 1+; Polychromasia 1+
[2020-10-03 15:44] LABS: Platelet Estimate NORMAL (NORMAL)
[2020-10-03 15:45] LABS: Large Platelet PRESENT; Platelet Morphology Comment NOTED
[2020-10-03 15:46] LABS: Lymphocytes Absolute Manual 0.4 X10*3/uL (0.6-4.8); Metamyelocytes Absolute 0.3 X10*3/uL; Monocytes Absolute Manual 0.6 X10*3/uL (0.0-1.2); Neutrophils Absolute Manual 12.9 X10*3/uL (2.2-7.9); White Blood Count 14.2 X10*3/uL (4.8-10.8)
[2020-10-03 16:08] LABS: Anion Gap 18 (12-20); Blood Urea Nitrogen 17 mg/dL (9-16); Calcium 7.6 mg/dL (8.4-10.2); Carbon Dioxide 19 mmol/L (22-29); Chloride 110 mmol/L (96-108); Creatinine Clr Calc Pharmacy 71.6; Estimated Glomerular Filt Rate > 60; Glucose Random 92 mg/dL (60-115); Potassium 3.3 mmol/l (3.3-5.1); Sodium 144 mmol/L (135-145)
[2020-10-03 16:33] LABS: Glucose, Whole Blood 124 mg/dL (60-115)
[2020-10-03 19:04] VITALS: BP 160/87; PULSE 96; RESP 22; TEMP 36.6; O2SAT 93
[2020-10-03 20:04] LABS: Glucose, Whole Blood 144 mg/dL (60-115)
[2020-10-03 23:31] VITALS: BP 137/70; PULSE 105; RESP 18; TEMP 37; O2SAT 96
[2020-10-04] MEDS: Piperacillin Sodium/Tazobactam 3.375 GM in 0.9 % Sodium Chloride 50 ML IV ×4 (00:42→17:45)
[2020-10-04 03:13] VITALS: BP 144/77; PULSE 99; RESP 18; TEMP 36.6; O2SAT 94
[2020-10-04] MEDS: Doxycycline Hyclate 100 MG in 0.9 % Sodium Chloride 250 ML 166.67 MG IV ×2 (04:35→15:55)
[2020-10-04 07:19] LABS: Hematocrit 28.2 % (42-52); Hemoglobin 9.5 g/dl (14.0-18.0); Mean Corpuscular HGB Conc 33.7 g/dl (31.0-36.0); Mean Corpuscular Hemoglobin 30.9 pg (27.0-33.0); Mean Corpuscular Volume 91.9 fL (80-98); NRBC Pct Auto 0.6 /100WBC (0.0-0.2); Platelet Count 163 X10*3/uL (160-400); Red Blood Count 3.07 X10*6/uL (4.60-5.80); Red Cell Distribution Width 16.2 % (11.0-16.0)
[2020-10-04 07:27] LABS: WBC ABN SCTR FOR CBC 1
[2020-10-04 07:39] VITALS: BP 146/70; PULSE 103; RESP 18; TEMP 36.1; O2SAT 91
[2020-10-04] MEDS: Insulin Lispro 100 UNIT/ML 3 ML VIAL SUBCUT (07:40)
[2020-10-04 07:41] LABS: Glucose, Whole Blood 258 mg/dL (60-115)
[2020-10-04] MEDS: 0.9 % Sodium Chloride 1,000 ML 80 ML IVCONT (07:51)
[2020-10-04] MEDS: Sertraline HCL 100 MG TABLET PO (07:54)
[2020-10-04 08:03] LABS: Anion Gap 26 (12-20); Blood Urea Nitrogen 15 mg/dL (9-16); Calcium 7.1 mg/dL (8.4-10.2); Carbon Dioxide 12 mmol/L (22-29); Chloride 109 mmol/L (96-108); Creatinine Clr Calc Pharmacy 72.4; Estimated Glomerular Filt Rate > 60; Glucose Random 210 mg/dL (60-115); Potassium 3.3 mmol/l (3.3-5.1); Sodium 144 mmol/L (135-145)
[2020-10-04 08:16] LABS: Band Neutrophils Percent 20 % (3-5); Metamyelocytes Percent 2 %; Monocytes Percent Manual 4 % (2-11); Neutrophils Percent Manual 74 % (45-73); Nucleated Red Blood Cells 2 /100WBC (0-0); Platelet Estimate NORMAL (NORMAL); Platelet Morphology Comment NORMAL
[2020-10-04 08:17] LABS: RBC Morphology NOTED
[2020-10-04 08:18] LABS: Acanthocytes 1+; Burr Cells 1+; Hypochromasia 1+; Macrocytosis 1+; Microcytosis 1+; Ovalocytes 1+; Polychromasia 1+; Tear Drop Cells 1+
[2020-10-04 08:19] LABS: Metamyelocytes Absolute 0.5 X10*3/uL; Monocytes Absolute Manual 0.9 X10*3/uL (0.0-1.2); Neutrophils Absolute Manual 21.2 X10*3/uL (2.2-7.9); White Blood Count 22.5 X10*3/uL (4.8-10.8)
[2020-10-04 10:27] LABS: Glucose, Whole Blood 163 mg/dL (60-115)
[2020-10-04 11:12] VITALS: BP 122/90; PULSE 86; RESP 18; TEMP 36.4; O2SAT 88
[2020-10-04 11:45] LABS: Glucose, Whole Blood 129 mg/dL (60-115)
--- NOTE | 2020-10-04 11:46 | HO.PM.IMPN ---
Subjective Subjective Date of Service: 10/04/20 Interval History: He is confuses, at times refuses care, including meds. He is weak. He will not keep O2 on and desat to 88 on room air Physical Exam Vital Signs: Vital Signs: Last Vital Signs Temp 97.6 F 10/04/20 11:12 Pulse 86 10/04/20 11:12 Resp 18 10/04/20 11:12 BP 122/90 H 10/04/20 11:12 Pulse Ox 88 L 10/04/20 11:12 Body Mass Index 21.9 General: Alert, pleasantly confused Resp: normal respi effort CVS: S1,S2,RRR GI: +BS, NT, no distention Skin: No rash Neuro: motor grossly intact Psych: at baseline Objective Data Current Medications Generic Name Dose Route Start Last Admin Trade Name Freq PRN Reason Stop Dose Admin Acetaminophen 650 mg 09/30/20 15:19 Acetaminophen 325 Mg Tablet PO Q6H PRN Pain, Mild (Pain Scale 1-3) Benzocaine 1 lozenge 10/01/20 11:45 Throat Lozenge, Medicated Lozenge MUCOUS MEM Q2H PRN Sore Throat Dexamethasone 4 mg 09/30/20 21:00 10/04/20 07:54 Dexamethasone 4 Mg Tablet PO Not Given BID JEROD Piperacillin Sod/Tazobactam 50 mls @ 100 mls/hr 09/30/20 12:45 10/04/20 06:41 Sod 3.375 gm/ Sodium Chloride IV Infused Q6H JEROD Infusion Doxycycline Hyclate 100 mg/ 250 mls @ 166.67 mls/hr 10/01/20 16:00 10/04/20 06:11 Sodium Chloride IV Infused Q12H JEROD Infusion Sodium Chloride 1,000 mls @ 80 mls/hr 10/03/20 14:45 10/04/20 07:51 Ns IVCONT 80 mls/hr .[id number] JEROD Administration Insulin Human Lispro 0 unit 09/30/20 21:00 10/04/20 07:40 Insulin Lispro 100 Unit/Ml 3 Ml Vial SUBCUT 6 unit QIDACHS JEROD Administration Protocol Lidocaine/Diphenhydr/Alum/Mg/Simeth 10 ml 09/30/20 18:15 10/04/20 05:35 Mag&Al/Sim/Diphenhyd/Lidocaine 10 Ml Oral.Susp PO Not Given Q6H [facility] Protocol Ondansetron HCl 4 mg 09/30/20 15:19 Ondansetron Hcl 4 Mg/2 Ml Vial IVPUSH Q8H PRN Nausea and Vomiting Pharmacy Consult 1 each 09/30/20 11:28 Consult Rx Perform Med Rec MISCELLANE ONCE PRN Consult order Sertraline HCl 100 mg 10/01/20 09:00 10/04/20 07:54 Sertraline Hcl 100 Mg Tablet PO 100 mg DAILY JEROD Administration Sodium Chloride 3 ml 09/30/20 16:00 10/04/20 07:41 0.9 % Sodium Chloride Flush 3 Ml Syringe IVFLUSH Not Given QSHIFT [facility] Tamsulosin HCl 0.4 mg 09/30/20 17:00 10/03/20 18:15 Tamsulosin Hcl 0.4 Mg Capsule PO Not Given DAILY@1700 [facility] Trazodone HCl 25 mg 10/02/20 22:11 10/02/20 22:28 Trazodone Hcl 25 Mg Halftab PO 25 mg BEDTIME PRN Administration Insomnia Labs CBC & Chem 7: 10/04/20 06:03 10/04/20 05:39 Microbiology Microbiology Results: Microbiology 09/30/20 10:48 Blood - Venous Blood Culture - Preliminary No growth after 48 hours. 09/30/20 10:39 Blood - Venous Blood Culture - Preliminary No growth after 48 hours. Assessment and Plan (1) Neutropenia with fever: Status: Acute (2) COVID-19 virus infection: Status: Acute (3) Sepsis: Status: Acute (4) Pneumonia: Problem details: Believe lobar pneumonia most prominent concern There could be MRSA,gram negative Most likely post COVID Patient guarded prognosis Status: Acute (5) Colon cancer metastasized to liver: Status: Acute Assessment and Plan: 80/m with HTN, HLD, history of colon cancer, depression here with 1. Sepsis due to COVID-19/pneumonia. all symptoms of sepsis including fever tachycardia and tachypnea resolved, on IV Zosyn, and doxycycline blood cultures negative, continue supportive care and follow clinical course, oxygenation stable, on steroid as part of chemotherapy, will continue current dose. Legionella antigen pend. patient oxygenation 99% on room air, being followed by infectious disease Dr. Rea feels symptoms related to pneumonia. 2. Acute toxic encephalopathy. Related to sepsis, COVID-19 infection, confusion resolved initially but patient noticed to be pleasantly confused and at night was restless, likely sun downing, received Benadryl the other night, labs today showed metabolic acidosis with elevated anion gap, renal function is stable, blood sugars elevated but not high enough for DKA, vitals are stable no hypoxia Will repeat labs, give IV fluid and follow clinical course. healthcare proxy Mario Joshi he admits that patient has difficulty following instructions and sometimes gets confused but otherwise is appropriate . no fever chills, no hypoxia. 3. Lactic acidosis secondary to sepsis. resolved 4. History of hypertension. noted to be hypotensive, required 4 L of IV fluid current blood pressure is stable will continue to hold home medications including hydrochlorothiazide and losartan 5. Diabetes mellitus with elevated blood sugar, likely related to dexamethasone. cont. insulin sliding scale, diabetic diet ,hold metformin and dulaglutide that he takes at home 6. History of depression. continue sertraline. 7. History of BPH. on Flomax. 8. Mucositis, likely related to chemotherapy. continue Magic mouthwash. 9. Code status has been discussed with the patient's grandson as well as patient's healthcare proxy, Mario Joshi, phone #[phone]. They wishes patient to be full code for now. 10. Neutropenic fever likely related to COVID-19 infection as well chemotherapy. WBC improved to 2.6 day 3 on granix 300mcg sc daily and now 28K 11. sore throat question related to chemotherapy versus related to COVID-19 infection and mucositis continue lozenges, Magic mouthwash and continue supportive care. 12. anion gap metabolic acidosis--worse today, check acetone and consider renal conslt he will need palcement. I think he has underlying dementia
--- NOTE | 2020-10-04 12:49 | MHC.CM.PN ---
Goal for dc is Home with resumption of [facility] home services. Patient is receiving IV doxycycline and IV Zosyn and is not yet medically cleared for dc. CM will continue to follow for dc planning and possible need to adjust the dc plan.
--- NOTE | 2020-10-04 14:17 | PC.NURSE ---
PT HAS BEEN VERY CONFUSED, COMBATIVE, AND RESISTANT TO CARE. HE HAS REFUSED ALL MEDS. REFUSED BREAKFAST AND LUNCH. NEW IV STARTED #20 LEFT WRIST. REQUIRED ASSIST OF 2 TO MANAGE INSERTION. SPOKE WITH PT GRANDSON TEMPLE REGARDING HIS BEHAVIOR. HE STATES PT IS USUALLY PLEASANT, ORIENTED AND COOPERATIVE. DR GARZA AWARE OF ABOVE STATED.
[2020-10-04 14:35] LABS: Glucose, Whole Blood 93 mg/dL (60-115)
[2020-10-04] MEDS: LORazepam 2 MG/ML VIAL 0.5 MG IVPUSH ×2 (15:15→15:45)
--- NOTE | 2020-10-04 15:36 | PC.NURSE ---
PER PREVIOUS RN AT APPROX 1430 PT WAS FOUND TO HAVE O2 SAT IN THE 80'S ALTHOUGH VERY DIFFICULT TO ASSESS HE IS VERY AGITATED AND PULLING AT THINGS. DR CUMMINGS IN TO ELVALUATE PT. RESP ALSO PRESENT. PT WAS GIVEN 0.5MG OF IV ATIVAN ORDERED. MD AND RESPIRATORY TO BEDSIDE TO ASSESS PATIENT. MD CALLED GRANDSON TO UPDATE ON PLAN OF CARE. ANOTHER 0.5MG ATIVAN IV ORDERED ND GIVEN. IVF CHANGED ORDERED. CONTINUOUS O2 PROBE APPLIED. WILL MONITOR.
[2020-10-04] MEDS: Dextrose 5 % and 0.45 % NaCl 1,000 ML 100 ML IVCONT (15:45)
[2020-10-04 16:00] VITALS: BP 153/73; PULSE 96; RESP 18; O2SAT 94
[2020-10-04 16:23] LABS: Glucose, Whole Blood 120 mg/dL (60-115)
[2020-10-04 16:23] LABS: Anion Gap 20 (12-20); Blood Urea Nitrogen 13 mg/dL (9-16); Calcium 7.1 mg/dL (8.4-10.2); Carbon Dioxide 18 mmol/L (22-29); Chloride 111 mmol/L (96-108); Creatinine Clr Calc Pharmacy 78.2; Estimated Glomerular Filt Rate > 60; Glucose Random 96 mg/dL (60-115); Sodium 146 mmol/L (135-145)
[2020-10-04 16:24] LABS: Lactic Acid 3.3 mmol/L (0.5-2.0)
[2020-10-04 16:42] LABS: Acetone, serum QL Moderate (Negative)
[2020-10-04 17:46] LABS: Reflex Lactate? Lactic Acid Added
[2020-10-04] MEDS: KCl 20 mEq in 0.45% Sod 20 MEQ/1,000 ML IV.SOLN 100 MEQ IVCONT (17:53)
[2020-10-04 18:56] VITALS: BP 142/75; PULSE 92; RESP 18; TEMP 36.6; O2SAT 93
[2020-10-04 20:59] LABS: Glucose, Whole Blood 147 mg/dL (60-115)
[2020-10-04 23:33] VITALS: BP 148/85; PULSE 105; RESP 19; TEMP 36; O2SAT 92
--- NOTE | 2020-10-05 | XR_ITS ---
EXAMINATION: XR CHEST CLINICAL INFORMATION: Hypoxia COMPARISON: September 30, 2020 TECHNIQUE: AP portable view of the chest was obtained. FINDINGS: There has been progression and bilateral regions of patchy disease. Heart normal size. No evidence of pulmonary edema. No pneumothorax. Right internal jugular port catheter in place with tip within the distal superior vena cava. XR/XR chest 1V IMPRESSION: Progression in bilateral regions of patchy disease.
--- NOTE | 2020-10-05 | CT_ITS ---
EXAMINATION: CT ANGIOGRAM OF THE CHEST WITH AND WITHOUT CONTRAST (CT PULMONARY ANGIOGRAM FOR PE) CLINICAL INFORMATION: Reason for Exam Hypoxia COMPARISON: CT chest 06/17/2020 TECHNIQUE: Prior to contrast administration, noncontrast localization images were obtained. Subsequently, multidetector volumetric imaging was performed from the thoracic inlet to below the diaphragms following the administration of 75 mL Omnipaque 350 intravenous contrast. No contrast reaction reported Sagittal, coronal, and MIP oblique sagittal reformatted images were obtained on the CT workstation, uploaded to PACS, and reviewed. This CT examination was performed using dose optimization techniques as appropriate, variously including the following: *Automated exposure control *Adjustment of mA and/or kV according to patient size (this includes techniques or standardized protocols for targeted exams where dose is matched to indication/reason for exam; i.e. extremities or head) *Use of iterative reconstruction technique Total exam dose-length product 363 mGy-cm FINDINGS: QUALITY OF STUDY/CONTRAST BOLUS: There is significant respiratory motion artifact which limits the sensitivity of the study. PULMONARY ARTERIES: There is no central pulmonary embolism. Cannot adequately evaluate segmental or subsegmental branches due to motion artifact. THORACIC AORTA: No aneurysm or dissection. LUNG: There are diffuse patchy parenchymal airspace/groundglass opacities which are predominantly peripheral in location with relative sparing of the right upper lobe. This may represent an atypical multifocal pneumonia such as Covid 19. PLEURA: No pleural effusion or pneumothorax. MEDIASTINUM: Normal heart size. No pericardial effusion. No hilar or mediastinal lymphadenopathy. No evidence of septal bowing or right heart strain. CHEST WALL/AXILLA: No axillary or internal mammary lymphadenopathy. OSSEOUS STRUCTURES: No acute or suspicious osseous abnormality. Diffuse idiopathic skeletal hyperostosis. UPPER ABDOMEN: The large left hepatic mass demonstrated on the prior study has decreased in size now with a maximal transverse measurement of 8.6 cm. Previously, this measured 13.3 cm. No reflux of contrast into the hepatic veins to suggest elevated right heart pressures. CT/CT angio chest PE protocol IMPRESSION: No central PE. Suboptimal study with respiratory motion artifact which does not permit adequate evaluation of segmental and subsegmental pulmonary arterial branches. There is extensive patchy parenchymal airspace/groundglass opacities that are increasing, suspicious for an atypical multifocal viral pneumonia such as Covid 19. VTE: indeterminate
--- NOTE | 2020-10-05 | US_ITS ---
EXAMINATION: US VENOUS ULTRASOUND WITH DOPPLER LOWER EXTREMITY, BILATERAL CLINICAL INFORMATION: Rule out DVT COMPARISON: None TECHNIQUE: Ultrasound of the deep veins is performed from the hip to the calf with compression sonography and color and pulse Doppler assessment. Spectral analysis with color-flow imaging is performed. FINDINGS: Exam limited by patient's positioning, portable exam. Exam extremely limited, the common femoral, profunda and peroneal veins were not visualized. The remainder of the deep venous systems are otherwise normal, There is normal venous compression and respiratory variation and augmented flow. The visualized superficial femoral vein, femoral vein, popliteal vein, and the trifurcation region shows no evidence of deep venous thrombosis. There is no significant popliteal fossa cyst. US/US venous duplex LE BI IMPRESSION: Limited this study, patient is prone, portable exam. The visualized portion of the deep venous system is patent with no evidence of DVT. If patient symptoms persist, may consider follow-up nonportable study at the department.
[2020-10-05] MEDS: Piperacillin Sodium/Tazobactam 3.375 GM in 0.9 % Sodium Chloride 50 ML IV ×4 (00:15→19:33)
[2020-10-05 04:00] VITALS: BP 116/73; PULSE 107; RESP 22; TEMP 36.6; O2SAT 92
[2020-10-05] MEDS: Doxycycline Hyclate 100 MG in 0.9 % Sodium Chloride 250 ML 166.67 MG IV ×2 (04:11→17:32)
[2020-10-05 06:51] LABS: Hemoglobin 9.6 g/dl (14.0-18.0); Mean Corpuscular Hemoglobin 30.1 pg (27.0-33.0); Mean Platelet Volume 10.5 fL (9.4-12.4); NRBC Pct Auto 0.7 /100WBC (0.0-0.2); Platelet Count 166 X10*3/uL (160-400); Red Blood Count 3.19 X10*6/uL (4.60-5.80); Red Cell Distribution Width 16.6 % (11.0-16.0); White Blood Count 25.9 X10*3/uL (4.8-10.8)
[2020-10-05 07:22] LABS: Anion Gap 28 (12-20); Blood Urea Nitrogen 12 mg/dL (9-16); Calcium 7.5 mg/dL (8.4-10.2); Carbon Dioxide 13 mmol/L (22-29); Chloride 110 mmol/L (96-108); Creatinine Clr Calc Pharmacy 73.3; Estimated Glomerular Filt Rate > 60; Glucose Random 247 mg/dL (60-115); Potassium 3.6 mmol/l (3.3-5.1); Sodium 147 mmol/L (135-145)
[2020-10-05 08:00] VITALS: BP 143/76; PULSE 78; RESP 22; TEMP 36.6; O2SAT 94
[2020-10-05 08:01] LABS: Glucose, Whole Blood 238 mg/dL (60-115)
[2020-10-05] MEDS: Insulin Lispro 100 UNIT/ML 3 ML VIAL SUBCUT (08:46)
[2020-10-05] MEDS: 0.9 % Sodium Chloride Flush 3 ML SYRINGE IVFLUSH ×2 (08:46→17:32)
[2020-10-05 11:19] LABS: pH ABG 7.41 (7.35-7.45)
[2020-10-05 11:20] LABS: Base Excess ABG -10.8; HCO3 ABG 12 mmol/l (22-26); Oxygen Saturation ABG 85.9 %; PO2 ABG 53 mmhg (83-108)
[2020-10-05 11:23] LABS: Glucose, Whole Blood 175 mg/dL (60-115)
[2020-10-05 11:24] LABS: ABG PCO2 20 mmhg (32-45)
[2020-10-05 11:32] LABS: Albumin Level 2.7 g/dL (3.5-5.0); Magnesium 1.5 mg/dL (1.6-2.6); Phosphorus 2.2 mg/dL (2.7-4.5); Triglycerides 170 mg/dL
[2020-10-05 11:59] VITALS: BP 142/82; PULSE 120; RESP 22; TEMP 36.3; O2SAT 89
--- NOTE | 2020-10-05 13:23 | PM.PNNEP ---
Subjective Subjective Date of Service: 10/05/20 Interval history: Patient seen and examined consult dictated Physical Exam Vital Signs: Vital Signs: Last Vital Signs Temp 97.3 F 10/05/20 11:59 Pulse 120 H 10/05/20 11:59 Resp 22 H 10/05/20 11:59 BP 142/82 H 10/05/20 11:59 Pulse Ox 89 L 10/05/20 11:59 Body Mass Index 21.9 Assessment & Plan Assessment and plan (1) High anion gap metabolic acidosis: Status: Acute (2) Hypernatremia: Status: Acute (3) COVID-19: Status: Acute Assessment and Plan: anion gap metabolic acidosis multifactorial: -type A lactic acidosis due to poor tissue perfusion -starvation ketoacidosis with high acetone not due to type B lactic acidosis (metformin) as his kidney function is normal elevated serum sodium due to free water deficit REC no need for NAHCO3 as his PH is 7.41 PPN/ D5W follow kidney function and electrolytes Thank you Time Spent With Patient Time: Total time spent is greater than 50% in coordination of care (as documented) at patient's floor/unit and/or counseling patient:
[2020-10-05] MEDS: Morphine Sulfate 2 MG/ML CARTRIDGE 0.5 MG IVPUSH (13:32)
[2020-10-05] MEDS: LORazepam 2 MG/ML VIAL 0.25 MG IVPUSH (13:39)
[2020-10-05] MEDS: LORazepam 2 MG/ML VIAL 1 MG IVPUSH (13:55)
--- NOTE | 2020-10-05 14:11 | PM.CNPUL ---
History of Present Illness History of Present Illness Consult date: 10/05/20 Requesting physician: María Zaragoza Chief complaint: Sepsis,covid 19 Narrative: 80-year-old gentleman with underlying history of metastatic colon cancer chemotherapy, hypertension, diabetes mellitus admitted on 09/30/2020 with lethargy, weakness, and cough. Noted to have COVID-19. Hospital course complicated by progressive hypoxemia. Treated with dexamethasone and broad-spectrum antibiotics. Upon examination, patient in prone position, somewhat cooperative with care provided, but not answering the questions posed, on Oxymizer pendant, comfortable. Review of Systems Review of Systems: Yes Other ( uncooperative) [facility] Past Medical History Medical History Colon cancer Family History Family history: reviewed and not pertinent Social History Social History Household Members: Other Household Members Other:: Ex- Housing: House Do you presently have visiting nurse or other home services: No Smoking Status: Never smoker Use of substances other than those prescribed or required for medical reasons: No Currently Displaying Signs/Symptoms of Drug Intoxication Withdrawal: No Have you been hit, kicked, punched, or otherwise hurt by someone within the past year? If so, by whom?: No Do you feel safe in your current relationship?: Yes Is there a partner from a previous relationship who is making you feel unsafe now?: No Are you made to feel afraid or neglected: No Advance Directives: No Advance Directives Information Provided: No Do you have thoughts of harming others: None Do you have a plan to hurt others: No Plan Recently lost weight without trying: No service: No Current occupational status: retired [employer] Allergies Allergy/AdvReac Type Severity Reaction Status Date / Time No Known Allergies Allergy Unverified 07/25/20 16:22 [No Known Allergies*] MANUEL Adult Cup Supporter Allergy Unknown Uncoded 02/17/18 00:00 Home Medications Medication Instructions Recorded Confirmed Type aspirin 81 mg PO DAILY 08/13/20 09/30/20 History atorvastatin 80 mg PO BEDTIME 08/13/20 09/30/20 History dexamethasone 4 mg PO BID 08/13/20 09/30/20 History dulaglutide 1.5 mg SUBCUT MO@1000 08/13/20 09/30/20 History melatonin 5 mg PO BEDTIME PRN 08/13/20 09/30/20 History metformin 1,000 mg PO BIDWM 08/13/20 09/30/20 History ondansetron 8 mg PO Q8H PRN 08/13/20 09/30/20 History sertraline 100 mg PO DAILY 08/13/20 09/30/20 History tamsulosin 0.4 mg PO QPM 08/13/20 09/30/20 History esomeprazole magnesium 40 mg PO DAILY 09/30/20 09/30/20 History hydrochlorothiazide 12.5 mg PO QAM 09/30/20 09/30/20 History losartan 50 mg PO DAILY 09/30/20 09/30/20 History Physical Exam Vital Signs: Vital Signs: Last Vital Signs Temp 97.3 F 10/05/20 11:59 Pulse 120 H 10/05/20 11:59 Resp 22 H 10/05/20 11:59 BP 142/82 H 10/05/20 11:59 Pulse Ox 89 L 10/05/20 11:59 Body Mass Index 21.9 Const: General: no acute distress and awake Eyes: Sclerae: sclerae normal EOM: EOMs intact bilaterally Neck: Neck: Yes no lymphadenopathy, Yes trachea midline and Yes supple Resp: Effort & Inspection: no respiratory distress Auscultation: crackles ( diffuse bilateral ) Cardio: Rate: tachycardic Rhythm: regular rhythm Heart sounds: no gallops, no murmurs and no rubs GI: Palpation (GI): Soft to palpation and Other GI palpation findings present ( Nontender) Auscultation: normal bowel sounds Extrem: General: Yes no pedal edema, No clubbing and No cyanosis Results Laboratory Findings CBC and BMP: 10/05/20 06:11 10/05/20 06:11 ABG, PT/INR, D-dimer: ABG ABG pH 7.41 (7.35-7.45) 10/05/20 11:00 ABG pCO2 20 mmhg (32-45) L* 10/05/20 11:00 ABG pO2 53 mmhg (83-108) L 10/05/20 11:00 ABG O2 Saturation 85.9 % 10/05/20 11:00 PT/INR, D-dimer PT 16.7 SEC (10.8-13.0) H 09/30/20 09:56 INR 1.4 (0.9-1.1) H 09/30/20 09:56 Abnormal lab findings: Abnormal Labs 09/30/20 09/30/20 09/30/20 09:53 09:54 09:54 WBC 0.9 L* RBC 3.12 L Hgb 9.5 L Hct 28.7 L RDW Plt Count 119 L Immature Gran % (Auto) 1.2 H Neut % (Auto) 30.6 L Lymph % (Auto) 50.6 H [place] % (Auto) 17.6 H Lymph # (Auto) 0.4 L Absolute Neuts (auto) 0.3 L Absolute Nucleated RBC Nucleated RBC % (auto) Neutrophils % (Manual) Band Neutrophils % Lymphocytes % (Manual) Abs Neuts (Manual) Lymphocytes # (Manual) Nucleated RBCs PT INR ABG pCO2 ABG pO2 ABG HCO3 Sodium 131 L Potassium Chloride Carbon Dioxide Anion Gap BUN 18 H POC Glucose Random Glucose 306 H Lactic Acid 2.2 H* Calcium 7.1 L D Phosphorus Magnesium AST 40 H D Total Protein 5.4 L Albumin 2.5 L D Acetone, Qual Coronavirus (PCR) 09/30/20 09/30/20 09/30/20 09:54 09:56 18:33 WBC RBC Hgb Hct RDW Plt Count Immature Gran % (Auto) Neut % (Auto) Lymph % (Auto) [place] % (Auto) Lymph # (Auto) Absolute Neuts (auto) Absolute Nucleated RBC Nucleated RBC % (auto) Neutrophils % (Manual) Band Neutrophils % Lymphocytes % (Manual) Abs Neuts (Manual) Lymphocytes # (Manual) Nucleated RBCs PT 16.7 H INR 1.4 H ABG pCO2 ABG pO2 ABG HCO3 Sodium Potassium Chloride Carbon Dioxide Anion Gap BUN POC Glucose 252 H Random Glucose Lactic Acid Calcium Phosphorus Magnesium AST Total Protein Albumin Acetone, Qual Coronavirus (PCR) POSITIVE A 09/30/20 10/01/20 10/01/20 20:44 05:48 05:48 WBC 0.5 L* RBC 2.99 L Hgb 9.2 L Hct 27.6 L RDW Plt Count 92 L Immature Gran % (Auto) Neut % (Auto) Lymph % (Auto) [place] % (Auto) Lymph # (Auto) Absolute Neuts (auto) Absolute Nucleated RBC Nucleated RBC % (auto) Neutrophils % (Manual) Band Neutrophils % 0 L Lymphocytes % (Manual) 44 H Abs Neuts (Manual) 0.2 L Lymphocytes # (Manual) 0.2 L Nucleated RBCs PT INR ABG pCO2 ABG pO2 ABG HCO3 Sodium Potassium Chloride Carbon Dioxide 18 L Anion Gap BUN POC Glucose 233 H Random Glucose 234 H Lactic Acid Calcium 6.8 L Phosphorus Magnesium AST Total Protein Albumin Acetone, Qual Coronavirus (PCR) 10/01/20 10/01/20 10/01/20 07:22 11:36 16:33 WBC RBC Hgb Hct RDW Plt Count Immature Gran % (Auto) Neut % (Auto) Lymph % (Auto) [place] % (Auto) Lymph # (Auto) Absolute Neuts (auto) Absolute Nucleated RBC Nucleated RBC % (auto) Neutrophils % (Manual) Band Neutrophils % Lymphocytes % (Manual) Abs Neuts (Manual) Lymphocytes # (Manual) Nucleated RBCs PT INR ABG pCO2 ABG pO2 ABG HCO3 Sodium Potassium Chloride Carbon Dioxide Anion Gap BUN POC Glucose 256 H 250 H 218 H Random Glucose Lactic Acid Calcium Phosphorus Magnesium AST Total Protein Albumin Acetone, Qual Coronavirus (PCR) 10/01/20 10/02/20 10/02/20 20:30 05:29 05:29 WBC 2.6 L RBC 2.99 L Hgb 9.2 L Hct 26.6 L RDW Plt Count 115 L Immature Gran % (Auto) Neut % (Auto) Lymph % (Auto) [place] % (Auto) Lymph # (Auto) Absolute Neuts (auto) Absolute Nucleated RBC Nucleated RBC % (auto) Neutrophils % (Manual) Band Neutrophils % 15 H Lymphocytes % (Manual) 15 L Abs Neuts (Manual) 2.0 L Lymphocytes # (Manual) 0.4 L Nucleated RBCs PT INR ABG pCO2 ABG pO2 ABG HCO3 Sodium Potassium Chloride 110 H Carbon Dioxide 18 L Anion Gap BUN POC Glucose 202 H Random Glucose 182 H Lactic Acid Calcium 7.0 L Phosphorus Magnesium AST Total Protein Albumin Acetone, Qual Coronavirus (PCR) 10/02/20 10/02/20 10/02/20 08:09 11:44 16:11 WBC RBC Hgb Hct RDW Plt Count Immature Gran % (Auto) Neut % (Auto) Lymph % (Auto) [place] % (Auto) Lymph # (Auto) Absolute Neuts (auto) Absolute Nucleated RBC Nucleated RBC % (auto) Neutrophils % (Manual) Band Neutrophils % Lymphocytes % (Manual) Abs Neuts (Manual) Lymphocytes # (Manual) Nucleated RBCs PT INR ABG pCO2 ABG pO2 ABG HCO3 Sodium Potassium Chloride Carbon Dioxide Anion Gap BUN POC Glucose 227 H 242 H 159 H Random Glucose Lactic Acid Calcium Phosphorus Magnesium AST Total Protein Albumin Acetone, Qual Coronavirus (PCR) 10/02/20 10/03/20 10/03/20 20:19 07:46 10:05 WBC RBC Hgb Hct RDW Plt Count Immature Gran % (Auto) Neut % (Auto) Lymph % (Auto) [place] % (Auto) Lymph # (Auto) Absolute Neuts (auto) Absolute Nucleated RBC Nucleated RBC % (auto) Neutrophils % (Manual) Band Neutrophils % Lymphocytes % (Manual) Abs Neuts (Manual) Lymphocytes # (Manual) Nucleated RBCs PT INR ABG pCO2 ABG pO2 ABG HCO3 Sodium Potassium Chloride 110 H Carbon Dioxide 13 L Anion Gap 23 H BUN 17 H POC Glucose 170 H 256 H Random Glucose 191 H Lactic Acid Calcium 7.3 L Phosphorus Magnesium AST Total Protein Albumin Acetone, Qual Coronavirus (PCR) 10/03/20 10/03/20 10/03/20 15:09 15:09 16:20 WBC 14.2 H RBC 3.26 L Hgb 10.0 L Hct 29.5 L RDW Plt Count Immature Gran % (Auto) Neut % (Auto) Lymph % (Auto) [place] % (Auto) Lymph # (Auto) Absolute Neuts (auto) Absolute Nucleated RBC 0.170 H Nucleated RBC % (auto) 1.2 H Neutrophils % (Manual) Band Neutrophils % 25 H Lymphocytes % (Manual) 3 L Abs Neuts (Manual) 12.9 H Lymphocytes # (Manual) 0.4 L Nucleated RBCs 5 H PT INR ABG pCO2 ABG pO2 ABG HCO3 Sodium Potassium Chloride 110 H Carbon Dioxide 19 L Anion Gap BUN 17 H POC Glucose 124 H Random Glucose Lactic Acid Calcium 7.6 L Phosphorus Magnesium AST Total Protein Albumin Acetone, Qual Coronavirus (PCR) 10/03/20 10/04/20 10/04/20 19:54 05:39 06:03 WBC 22.5 H RBC 3.07 L Hgb 9.5 L Hct 28.2 L RDW 16.2 H Plt Count Immature Gran % (Auto) Neut % (Auto) Lymph % (Auto) [place] % (Auto) Lymph # (Auto) Absolute Neuts (auto) Absolute Nucleated RBC 0.140 H Nucleated RBC % (auto) 0.6 H Neutrophils % (Manual) 74 H Band Neutrophils % 20 H Lymphocytes % (Manual) Abs Neuts (Manual) 21.2 H Lymphocytes # (Manual) Nucleated RBCs 2 H PT INR ABG pCO2 ABG pO2 ABG HCO3 Sodium Potassium Chloride 109 H Carbon Dioxide 12 L Anion Gap 26 H BUN POC Glucose 144 H Random Glucose 210 H D Lactic Acid Calcium 7.1 L D Phosphorus Magnesium AST Total Protein Albumin Acetone, Qual Coronavirus (PCR) 10/04/20 10/04/20 10/04/20 07:37 10:22 11:15 WBC RBC Hgb Hct RDW Plt Count Immature Gran % (Auto) Neut % (Auto) Lymph % (Auto) [place] % (Auto) Lymph # (Auto) Absolute Neuts (auto) Absolute Nucleated RBC Nucleated RBC % (auto) Neutrophils % (Manual) Band Neutrophils % Lymphocytes % (Manual) Abs Neuts (Manual) Lymphocytes # (Manual) Nucleated RBCs PT INR ABG pCO2 ABG pO2 ABG HCO3 Sodium Potassium Chloride Carbon Dioxide Anion Gap BUN POC Glucose 258 H 163 H 129 H Random Glucose Lactic Acid Calcium Phosphorus Magnesium AST Total Protein Albumin Acetone, Qual Coronavirus (PCR) 10/04/20 10/04/20 10/04/20 15:35 15:35 15:35 WBC RBC Hgb Hct RDW Plt Count Immature Gran % (Auto) Neut % (Auto) Lymph % (Auto) [place] % (Auto) Lymph # (Auto) Absolute Neuts (auto) Absolute Nucleated RBC Nucleated RBC % (auto) Neutrophils % (Manual) Band Neutrophils % Lymphocytes % (Manual) Abs Neuts (Manual) Lymphocytes # (Manual) Nucleated RBCs PT INR ABG pCO2 ABG pO2 ABG HCO3 Sodium 146 H Potassium 3.0 L Chloride 111 H Carbon Dioxide 18 L Anion Gap BUN POC Glucose Random Glucose Lactic Acid 3.3 H* Calcium 7.1 L Phosphorus Magnesium AST Total Protein Albumin Acetone, Qual Moderate H Coronavirus (PCR) 10/04/20 10/04/20 10/05/20 16:10 20:47 06:11 WBC 25.9 H RBC 3.19 L Hgb 9.6 L Hct 30.0 L RDW 16.6 H Plt Count Immature Gran % (Auto) Neut % (Auto) Lymph % (Auto) [place] % (Auto) Lymph # (Auto) Absolute Neuts (auto) Absolute Nucleated RBC 0.180 H Nucleated RBC % (auto) 0.7 H Neutrophils % (Manual) Band Neutrophils % Lymphocytes % (Manual) Abs Neuts (Manual) Lymphocytes # (Manual) Nucleated RBCs PT INR ABG pCO2 ABG pO2 ABG HCO3 Sodium Potassium Chloride Carbon Dioxide Anion Gap BUN POC Glucose 120 H 147 H Random Glucose Lactic Acid Calcium Phosphorus Magnesium AST Total Protein Albumin Acetone, Qual Coronavirus (PCR) 10/05/20 10/05/20 10/05/20 06:11 07:51 10:39 WBC RBC Hgb Hct RDW Plt Count Immature Gran % (Auto) Neut % (Auto) Lymph % (Auto) [place] % (Auto) Lymph # (Auto) Absolute Neuts (auto) Absolute Nucleated RBC Nucleated RBC % (auto) Neutrophils % (Manual) Band Neutrophils % Lymphocytes % (Manual) Abs Neuts (Manual) Lymphocytes # (Manual) Nucleated RBCs PT INR ABG pCO2 ABG pO2 ABG HCO3 Sodium 147 H Potassium Chloride 110 H Carbon Dioxide 13 L Anion Gap 28 H BUN POC Glucose 238 H Random Glucose 247 H D Lactic Acid Calcium 7.5 L Phosphorus 2.2 L Magnesium 1.5 L AST Total Protein Albumin 2.7 L Acetone, Qual Coronavirus (PCR) 10/05/20 10/05/20 11:00 11:20 WBC RBC Hgb Hct RDW Plt Count Immature Gran % (Auto) Neut % (Auto) Lymph % (Auto) [place] % (Auto) Lymph # (Auto) Absolute Neuts (auto) Absolute Nucleated RBC Nucleated RBC % (auto) Neutrophils % (Manual) Band Neutrophils % Lymphocytes % (Manual) Abs Neuts (Manual) Lymphocytes # (Manual) Nucleated RBCs PT INR ABG pCO2 20 L* ABG pO2 53 L ABG HCO3 12 L Sodium Potassium Chloride Carbon Dioxide Anion Gap BUN POC Glucose 175 H Random Glucose Lactic Acid Calcium Phosphorus Magnesium AST Total Protein Albumin Acetone, Qual Coronavirus (PCR) Microbiology: Microbiology 09/30/20 10:48 Blood - Venous Blood Culture - Final No growth after 5 days. 09/30/20 10:39 Blood - Venous Blood Culture - Final No growth after 5 days. Assessment and Plan (1) COVID-19: Status: Acute Impression: COVID-19 related hypoxemia with component of pulmonary edema and agitation. Recommendations: Agree with further dioxide methadone treatment. Consider ID evaluation for Remdesevir. would consider discontinuation of at least doxycycline, and if not febrile in the next 48 hours, then Zosyn. continue supplemental oxygen to maintain O2 saturation of 88% in above. Consider using high-flow nasal cannula. Consider further diuresis. (2) Acute respiratory failure with hypoxia: Status: Acute
--- NOTE | 2020-10-05 15:10 | PM.IDPN ---
Subjective Subjective Date of Service: 11/02/20 Interval History: He has been on room air Hehas had decreased oxygen this am, 16 L He is proning himself He is taking oxygen off Objective Data Labs CBC & Chem 7: 10/12/20 05:58 10/12/20 05:58 Labs: Laboratory Results - last 24 hr 10/04/20 10/04/20 10/04/20 15:35 15:35 15:35 WBC RBC Hgb Hct MCV MCH MCHC RDW Plt Count MPV Absolute Nucleated RBC Nucleated RBC % (auto) ABG pH ABG pCO2 ABG pO2 ABG HCO3 ABG O2 Saturation ABG Base Excess Oxygen Given Sodium 146 H Potassium 3.0 L Chloride 111 H Carbon Dioxide 18 L Anion Gap 20 BUN 13 Creatinine 0.75 Estim Creat Clear Calc 78.2 Estimated GFR > 60 POC Glucose Random Glucose 96 D Lactic Acid 3.3 H* Lactic Acid Fup @ 2Hr Calcium 7.1 L Phosphorus Magnesium Albumin Triglycerides Acetone, Qual Moderate H 10/04/20 10/04/20 10/04/20 16:10 18:21 20:47 WBC RBC Hgb Hct MCV MCH MCHC RDW Plt Count MPV Absolute Nucleated RBC Nucleated RBC % (auto) ABG pH ABG pCO2 ABG pO2 ABG HCO3 ABG O2 Saturation ABG Base Excess Oxygen Given Sodium Potassium Chloride Carbon Dioxide Anion Gap BUN Creatinine Estim Creat Clear Calc Estimated GFR POC Glucose 120 H 147 H Random Glucose Lactic Acid Lactic Acid Fup @ 2Hr 2.0 Calcium Phosphorus Magnesium Albumin Triglycerides Acetone, Qual 10/05/20 10/05/20 10/05/20 06:11 06:11 07:51 WBC 25.9 H RBC 3.19 L Hgb 9.6 L Hct 30.0 L MCV 94.0 MCH 30.1 MCHC 32.0 RDW 16.6 H Plt Count 166 MPV 10.5 Absolute Nucleated RBC 0.180 H Nucleated RBC % (auto) 0.7 H ABG pH ABG pCO2 ABG pO2 ABG HCO3 ABG O2 Saturation ABG Base Excess Oxygen Given Sodium 147 H Potassium 3.6 Chloride 110 H Carbon Dioxide 13 L Anion Gap 28 H BUN 12 Creatinine 0.80 Estim Creat Clear Calc 73.3 Estimated GFR > 60 POC Glucose 238 H Random Glucose 247 H D Lactic Acid Lactic Acid Fup @ 2Hr Calcium 7.5 L Phosphorus Magnesium Albumin Triglycerides Acetone, Qual 10/05/20 10/05/20 10/05/20 10:39 11:00 11:20 WBC RBC Hgb Hct MCV MCH MCHC RDW Plt Count MPV Absolute Nucleated RBC Nucleated RBC % (auto) ABG pH 7.41 ABG pCO2 20 L* ABG pO2 53 L ABG HCO3 12 L ABG O2 Saturation 85.9 ABG Base Excess -10.8 Oxygen Given 9-15 L Sodium Potassium Chloride Carbon Dioxide Anion Gap BUN Creatinine Estim Creat Clear Calc Estimated GFR POC Glucose 175 H Random Glucose Lactic Acid Lactic Acid Fup @ 2Hr Calcium Phosphorus 2.2 L Magnesium 1.5 L Albumin 2.7 L Triglycerides 170 Acetone, Qual Microbiology Microbiology Results: Microbiology 09/30/20 10:48 Blood - Venous Blood Culture - Final No growth after 5 days. 09/30/20 10:39 Blood - Venous Blood Culture - Final No growth after 5 days. Physical Exam Vital Signs: Vital Signs: Last Vital Signs Temp 97.3 F 10/05/20 11:59 Pulse 120 H 10/05/20 11:59 Resp 22 H 10/05/20 11:59 BP 142/82 H 10/05/20 11:59 Pulse Ox 89 L 10/05/20 11:59 Body Mass Index 21.9 Const: General: ill appearing Resp: Effort & Inspection: abnormal respiratory pattern Cardio: Rate: regular rate and tachycardic Assessment and Plan Assessment and plan (1) Pneumonia: Problem details: Be repeating a chest x-ray Continue to decrease high-flow Status: Acute (2) Acute respiratory failure with hypoxia: Problem details: severe with extensive GGO Status: Acute (3) COVID-19: Status: Acute Assessment and Plan: No Remdesivir indication at this time Supportive care Try obtain sputum if able,? aspergillosis/gram negative Agree check for pulmonary embolus Poor prognosis Time Spent With Patient Time: Total time spent is greater than 50% in coordination of care (as documented) at patient's floor/unit and/or counseling patient: Time with patient: less than 15 minutes
[2020-10-05 16:03] VITALS: PULSE 115; RESP 24; O2SAT 87
--- NOTE | 2020-10-05 16:28 | P.PNIM_ITS ---
Subjective Subjective Date of Service: 10/06/20 Interval History: Acute hypoxemic respiratory failure -COVID pneumonia, metabolic acidosis Review of Systems Patient's awake, still confused and restlessness. Unable to answer any questions, non cooperative. Physical Exam Vital Signs: Vital Signs: Last Vital Signs Temp 97.3 F 10/05/20 11:59 Pulse 120 H 10/05/20 11:59 Resp 24 H 10/05/20 16:03 BP 142/82 H 10/05/20 11:59 Pulse Ox 89 L 10/05/20 11:59 Body Mass Index 21.9 Physical exam: Physical exam is limited due to patient is noncooperative. Cvs: rrr, [id number] , no murmur res: Breath sounds seems diminished at bases, few scattered rhonchi abd: Abdomen is soft, bowel sounds are present, with the palpation of the abdomen patient does not show any gramaces or any pain signs but could not able to answer if he has any pain. ext pulses present , no cyanosis neuro: axo3 , nonfocal. Objective Data Current Medications Generic Name Dose Route Start Last Admin Trade Name Freq PRN Reason Stop Dose Admin Acetaminophen 650 mg 09/30/20 15:19 Acetaminophen 325 Mg Tablet PO Q6H PRN Pain, Mild (Pain Scale 1-3) Benzocaine 1 lozenge 10/01/20 11:45 Throat Lozenge, Medicated Lozenge MUCOUS MEM Q2H PRN Sore Throat Dexamethasone Sodium Phosphate 6 mg 10/06/20 09:00 Dexamethasone Sod Phosphate/Pf 10 Mg/Ml Vial IVPUSH DAILY JEROD Furosemide 20 mg 10/05/20 18:00 Furosemide 20 Mg/2 Ml Vial IVPUSH BID@0900,[facility] Protocol Piperacillin Sod/Tazobactam 50 mls @ 100 mls/hr 09/30/20 12:45 10/05/20 14:35 Sod 3.375 gm/ Sodium Chloride IV Infused Q6H JEROD Infusion Doxycycline Hyclate 100 mg/ 250 mls @ 166.67 mls/hr 10/01/20 16:00 10/05/20 05:41 Sodium Chloride IV Infused Q12H JEROD Infusion Multivitamins 18.9 ml/ Trace 2,020.8 mls @ 45 mls/hr 10/05/20 18:00 Metals 1.9 ml/ Amino Acids/ IV 10/06/20 17:59 Electrolytes/Dextrose DAILY@[facility] Insulin Human Lispro 0 unit 09/30/20 21:00 10/05/20 13:34 Insulin Lispro 100 Unit/Ml 3 Ml Vial SUBCUT Not Given QIDACHS [facility] Protocol Lidocaine/Diphenhydr/Alum/Mg/Simeth 10 ml 09/30/20 18:15 10/05/20 13:34 Mag&Al/Sim/Diphenhyd/Lidocaine 10 Ml Oral.Susp PO Not Given Q6H [facility] Protocol Lorazepam 0.5 mg 10/04/20 17:42 Lorazepam 0.5 Mg Tablet PO Q4H PRN anxiety and agitation Ondansetron HCl 4 mg 09/30/20 15:19 Ondansetron Hcl 4 Mg/2 Ml Vial IVPUSH Q8H PRN Nausea and Vomiting Pharmacy Consult 1 each 09/30/20 11:28 Consult Rx Perform Med Rec MISCELLANE ONCE PRN Consult order Sertraline HCl 100 mg 10/01/20 09:00 10/05/20 08:57 Sertraline Hcl 100 Mg Tablet PO Not Given DAILY [facility] Sodium Chloride 3 ml 09/30/20 16:00 10/05/20 08:46 0.9 % Sodium Chloride Flush 3 Ml Syringe IVFLUSH 3 ml QSHIFT [facility] Administration Tamsulosin HCl 0.4 mg 09/30/20 17:00 10/04/20 17:06 Tamsulosin Hcl 0.4 Mg Capsule PO Not Given DAILY@1700 [facility] Trazodone HCl 25 mg 10/02/20 22:11 10/02/20 22:28 Trazodone Hcl 25 Mg Halftab PO 25 mg BEDTIME PRN Administration Insomnia Labs CBC & Chem 7: 10/06/20 06:13 10/06/20 06:13 Microbiology Microbiology Results: Microbiology 09/30/20 10:48 Blood - Venous Blood Culture - Final No growth after 5 days. 09/30/20 10:39 Blood - Venous Blood Culture - Final No growth after 5 days. Assessment and Plan (1) Pneumonia: Problem details: Believe lobar pneumonia most prominent concern There could be MRSA,gram negative Most likely post COVID Patient guarded prognosis Status: Acute Assessment and Plan: 80/m with HTN, HLD, history of colon cancer, depression here with 1. Sepsis due to COVID-19/pneumonia. Awake No fevers Leukocytosis is trending up Tachycardia and tachypnea probably related to agitation, hypoxia. Chest [id number]-[id number] of b/l pathcy dis and ABG done: Reviewed with pulm: Thought to be acute hypoxemic respiratory failure seems multifactorial-COVID pneumonia and as well as component of pulmonary edema Pulmonary recommended to continue current treatment with IV antibiotics, diuresis, also id saw the patient and recommended to continue current antibiotics and steroids, as per ID remdesivir is not indicated at present. Oxygen supportive care with Oxymizer and we added high-flow. also spoek to Pulm: we will add cta , venous dupplex study also since patient has covid . If the CTA come positive or any DVT-plan is to start IV heparin, discussed with patient's air valve repairer Mario Joshi, phone #[phone] As per ID and Pulmonary seems poor prognosis. Id flores leukocytosis probably related to steroid and Granix 2. Acute toxic encephalopathy. Thought to be multifactorial: Related to sepsis, COVID-19 infection, confusion resolved initially but patient noticed to be pleasantly confused and at night was restless, likely sun downing. Received Ativan today for agitation, also has keep removing his oxygen. 3. metabolic acidosis/hypernatremia: Discussed with the Pulmonary and Nephro: Metabolic acidosis flores pH is 7.41, bicarb is 13 Thought to be metabolic earlier acidosis related to since patient have poor oral intake from last few days at least as per staff, hypoxia . Nephro recommended to add PPN which is added. No need of sodium bicarb. 4. History of hypertension: blood pressure seems stable ,intilaly was hypotensive, received 4 L of IV fluid as per chart review, current blood pressure is stable will continue to hold home medications including hydrochlorothiazide and losartan. 5. Diabetes mellitus with elevated blood sugar, likely related to dexamethasone.: not taking po, ph seems normal less likely dka cont. insulin sliding scale, diabetic diet ,hold metformin and dulaglutide that he takes at home 6. Neutropenic fever likely related to COVID-19 infection as well chemotherapy. WBC improved to 2.6 -received granix . received 2 days on granix 300mcg sc daily and now 28K. Above management discussed with patient's air valve repairer Mario Joshi, phone #, patient is full code. Patient condition discussed with family in detail length
[2020-10-05 16:44] LABS: Glucose, Whole Blood 147 mg/dL (60-115)
[2020-10-05 18:37] LABS: Legionella Ag Urine Not Detected (Not Detected)
[2020-10-05] MEDS: Furosemide 20 MG/2 ML VIAL IVPUSH ×2 (19:33)
[2020-10-05 19:51] VITALS: PULSE 109; RESP 22; O2SAT 90
[2020-10-05 20:01] VITALS: BP 139/61; PULSE 101; RESP 18; TEMP 36.2; O2SAT 97
[2020-10-05 21:17] LABS: Glucose, Whole Blood 183 mg/dL (60-115)
[2020-10-05] MEDS: iohexoL 350 MG/ML 100 ML INFUS..BTL IV (21:17)
[2020-10-05] MEDS: LORazepam 2 MG/ML VIAL 0.5 MG IVPUSH (21:38)
[2020-10-05] MEDS: Morphine Sulfate 2 MG/ML CARTRIDGE 1 MG IVPUSH (23:17)
[2020-10-05] MEDS: Heparin Sodium,Porcine 5,000 UNIT/ML VIAL 5000 UNIT SUBCUT (23:21)
[2020-10-06] VITALS (11 sets, daily range): BP systolic 118–154; BP diastolic 57–84; PULSE 74–107; RESP 18–32; TEMP 36.2–36.6; O2SAT 90–100
[2020-10-06] MEDS: Piperacillin Sodium/Tazobactam 3.375 GM in 0.9 % Sodium Chloride 50 ML IV ×4 (00:46→18:38)
[2020-10-06] MEDS: Doxycycline Hyclate 100 MG in 0.9 % Sodium Chloride 250 ML 166.67 MG IV ×2 (03:27→16:17)
[2020-10-06] MEDS: Heparin Sodium,Porcine 5,000 UNIT/ML VIAL 5000 UNIT SUBCUT ×3 (06:01→21:28)
[2020-10-06] MEDS: Pantoprazole Sodium 40 MG/10 ML VIAL IVPUSH (06:01)
[2020-10-06 07:11] LABS: Hematocrit 27.3 % (42-52); Mean Corpuscular Hemoglobin 30.6 pg (27.0-33.0); Mean Corpuscular Volume 92.9 fL (80-98); Mean Platelet Volume 10.9 fL (9.4-12.4); Platelet Count 130 X10*3/uL (160-400); Red Blood Count 2.94 X10*6/uL (4.60-5.80); Red Cell Distribution Width 16.9 % (11.0-16.0); White Blood Count 16.8 X10*3/uL (4.8-10.8)
[2020-10-06 07:37] LABS: Glucose, Whole Blood 344 mg/dL (60-115)
[2020-10-06 07:45] LABS: Blood Urea Nitrogen 14 mg/dL (9-16); Calcium 7.2 mg/dL (8.4-10.2); Creatinine Clr Calc Pharmacy 65.2; Estimated Glomerular Filt Rate > 60; Glucose Random 320 mg/dL (60-115)
[2020-10-06 07:55] LABS: Anion Gap 29 (12-20); Carbon Dioxide 13 mmol/L (22-29); Chloride 109 mmol/L (96-108); Potassium 2.9 mmol/l (3.3-5.1); Sodium 148 mmol/L (135-145)
[2020-10-06 08:05] LABS: Alanine Aminotransferase 17 U/L (0-40); Albumin Level 2.2 g/dL (3.5-5.0); Alkaline Phosphatase 156 U/L (39-117); Aspartate Amino Transferase 29 U/L (5-37); Bilirubin Direct 0.3 mg/dL (0.0-0.5); Bilirubin Total 0.5 mg/dL (0.0-1.0); Magnesium 1.5 mg/dL (1.6-2.6); Total Protein 4.6 g/dL (6.5-8.0)
--- NOTE | 2020-10-06 08:54 | PC.NURSE ---
Pt weaned down to 80% high flow O2 from 100% with O2 sats 96-97%. Will continue to monitor.
[2020-10-06] MEDS: 0.9 % Sodium Chloride Flush 3 ML SYRINGE IVFLUSH ×3 (09:09→21:30)
[2020-10-06] MEDS: Insulin Lispro 100 UNIT/ML 3 ML VIAL SUBCUT ×4 (09:09→21:28)
[2020-10-06] MEDS: Furosemide 20 MG/2 ML VIAL IVPUSH ×2 (09:10→17:31)
[2020-10-06] MEDS: Magnesium Sulfate/D5W 1 GM/100 ML PIGGYBACK IV (10:38)
[2020-10-06] MEDS: Potassium Chloride/H20 10 MEQ/100 ML PIGGYBACK 100 MEQ IV ×4 (10:41→17:30)
[2020-10-06] MEDS: LORazepam 2 MG/ML VIAL 0.5 MG IVPUSH (10:58)
[2020-10-06 11:00] LABS: Glucose, Whole Blood 365 mg/dL (60-115)
--- NOTE | 2020-10-06 11:32 | PM.PNNEP ---
Subjective Subjective Date of Service: 10/06/20 Interval history: Acute hypoxemic respiratory failure -COVID pneumonia, metabolic acidosis Physical Exam Vital Signs: Vital Signs: Last Vital Signs Temp 97.2 F 10/06/20 08:00 Pulse 96 10/06/20 08:00 Resp 24 H 10/06/20 08:26 BP 131/71 10/06/20 08:00 Pulse Ox 96 10/06/20 08:00 Body Mass Index 21.9 Assessment & Plan Time Spent With Patient Time: Total time spent is greater than 50% in coordination of care (as documented) at patient's floor/unit and/or counseling patient:
[2020-10-06 11:55] LABS: Pt Ventilation O2% 100%
[2020-10-06 12:02] LABS: Base Excess ABG -7.3; HCO3 ABG 15 mmol/l (22-26); Oxygen Saturation ABG 94.7 %; PO2 ABG 68 mmhg (83-108)
[2020-10-06 12:05] LABS: ABG PCO2 19 mmhg (32-45)
--- NOTE | 2020-10-06 12:26 | PM.PNNEP ---
Subjective Subjective Date of Service: 10/06/20 Interval history: seen and examined discussed with medical attending confused Physical Exam Vital Signs: Vital Signs: Last Vital Signs Temp 97.2 F 10/06/20 08:00 Pulse 96 10/06/20 08:00 Resp 32 H 10/06/20 11:52 BP 131/71 10/06/20 08:00 Pulse Ox 96 10/06/20 08:00 Body Mass Index 21.9 Const: General: ill appearing HENMT: Head: Yes normocephalic and Yes atraumatic Neck: Neck: Yes supple Resp: Auscultation: diminished lung sounds Cardio: Rate: tachycardic Heart sounds: S1 normal heart sound present and S2 normal heart sound present GI: Palpation (GI): Soft to palpation and no guarding Extrem: General: Yes no pedal edema Assessment & Plan Assessment and plan (1) High anion gap metabolic acidosis: Status: Acute (2) Hypernatremia: Status: Acute (3) Hypokalemia: Status: Acute (4) COVID-19: Problem details: He is in inflammatory phase of COVID,day 6 at least post diagnosis He never had acute viral phase with early oxygen need where Remdesivir may benefit although data shows doesnt improve mortality or less progression to intubation Status: Acute Assessment and Plan: worsening COVID 19 PNA (CTA) alkalemia on ABG combined AGMA and NAGMA multifactorial: -GI bicarbonate losses (reported to have watery diarrhea) -metabolic compensation -type A lactic acidosis due to poor tissue perfusion (earlier) -starvation ketoacidosis with high acetone not due to type B lactic acidosis (metformin) as his kidney function is normal doubt other elevated serum sodium due to free water deficit REC no need for NAHCO3 as his PH is 7.5 PPN/ D5W replace potassium follow kidney function and electrolytes Time Spent With Patient Time: Total time spent is greater than 50% in coordination of care (as documented) at patient's floor/unit and/or counseling patient:
[2020-10-06] MEDS: LORazepam 2 MG/ML VIAL 0.25 MG IVPUSH (13:15)
[2020-10-06 13:37] LABS: Glucose, Whole Blood 284 mg/dL (60-115)
[2020-10-06 14:02] LABS: Glucose, Whole Blood 276 mg/dL (60-115)
[2020-10-06 15:36] LABS: Glucose, Whole Blood 269 mg/dL (60-115)
--- NOTE | 2020-10-06 16:04 | PM.CCN ---
Critical Care Event Note Summary Code activated: No Narrative: Patient with respiratory alkalosis on the background of COVID-19 related hypoxemia and likely D-lactic acidosis from either liver metastases or short-bowel. SBP in 130's, oxygenation acceptable without requiring NIPPV. At this time does not require ICU level of care. Please notify [id number], if patient condition changes. Critical Care Time (minutes): 0
[2020-10-06 16:15] LABS: Glucose, Whole Blood 257 mg/dL (60-115)
--- NOTE | 2020-10-06 17:24 | HO.PM.IMPN ---
Subjective Subjective Date of Service: 10/07/20 Interval History: Acute hypoxemic respiratory failure secondary to COVID infection, metabolic acidosis D related to starvation ketosis, poor oral intake with failure to thrive. Review of Systems Patient unable to answer any questions, very restlessness. Physical Exam Vital Signs: Vital Signs: Last Vital Signs Temp 97.4 F 10/06/20 16:00 Pulse 93 10/06/20 16:00 Resp 22 H 10/06/20 16:00 BP 118/77 10/06/20 16:00 Pulse Ox 97 10/06/20 16:00 Body Mass Index 21.9 Physio: Cvs: [id number], [id number] , no murmur res: diminshed breath sounds . abd: bowel sounds present , soft , no gramces or pain impression with palpation. ext pulses present , no cyanosis neuro: moving extermities spontaneously Objective Data Current Medications Generic Name Dose Route Start Last Admin Trade Name Freq PRN Reason Stop Dose Admin Acetaminophen 650 mg 09/30/20 15:19 Acetaminophen 325 Mg Tablet PO Q6H PRN Pain, Mild (Pain Scale 1-3) Benzocaine 1 lozenge 10/01/20 11:45 Throat Lozenge, Medicated Lozenge MUCOUS MEM Q2H PRN Sore Throat Dexamethasone Sodium Phosphate 6 mg 10/06/20 09:00 10/06/20 09:09 Dexamethasone Sod Phosphate/Pf 10 Mg/Ml Vial IVPUSH 6 mg DAILY JEROD Administration Furosemide 20 mg 10/05/20 18:00 10/06/20 09:10 Furosemide 20 Mg/2 Ml Vial IVPUSH 20 mg BID@0900,1800 JEROD Administration Protocol Heparin Sodium (Porcine) 5,000 unit 10/05/20 23:00 10/06/20 16:16 Heparin Sodium,Porcine 5,000 Unit/Ml Vial SUBCUT 5,000 unit Q8H JEROD Administration Piperacillin Sod/Tazobactam 50 mls @ 100 mls/hr 09/30/20 12:45 10/06/20 14:49 Sod 3.375 gm/ Sodium Chloride IV Infused Q6H JEROD Infusion Doxycycline Hyclate 100 mg/ 250 mls @ 166.67 mls/hr 10/01/20 16:00 10/06/20 16:17 Sodium Chloride IV 166.67 mls/hr Q12H JEROD Administration Multivitamins 18.9 ml/ Trace 2,020.8 mls @ 45 mls/hr 10/05/20 18:00 10/06/20 06:33 Metals 1.9 ml/ Amino Acids/ IV 10/06/20 17:59 45 mls/hr Electrolytes/Dextrose DAILY@1800 [facility] Infusion Multivitamins 18.9 ml/ Trace 2,020.8 mls @ 45 mls/hr 10/06/20 18:00 Metals 1.9 ml/ Amino Acids/ IV 10/07/20 17:59 Electrolytes/Dextrose DAILY@1800 [facility] Insulin Human Lispro 0 unit 09/30/20 21:00 10/06/20 16:16 Insulin Lispro 100 Unit/Ml 3 Ml Vial SUBCUT 6 unit QIDACHS [facility] Administration Protocol Lidocaine/Diphenhydr/Alum/Mg/Simeth 10 ml 09/30/20 18:15 10/06/20 12:33 Mag&Al/Sim/Diphenhyd/Lidocaine 10 Ml Oral.Susp PO Not Given Q6H [facility] Protocol Lorazepam 0.5 mg 10/04/20 17:42 Lorazepam 0.5 Mg Tablet PO Q4H PRN anxiety and agitation Ondansetron HCl 4 mg 09/30/20 15:19 Ondansetron Hcl 4 Mg/2 Ml Vial IVPUSH Q8H PRN Nausea and Vomiting Pantoprazole Sodium 40 mg 10/06/20 06:30 10/06/20 06:01 Pantoprazole Sodium 40 Mg/10 Ml Vial IVPUSH 40 mg DAILY@0630 [facility] Administration Pharmacy Consult 1 each 09/30/20 11:28 Consult Rx Perform Med Rec MISCELLANE ONCE PRN Consult order Sertraline HCl 100 mg 10/01/20 09:00 10/06/20 09:10 Sertraline Hcl 100 Mg Tablet PO Not Given DAILY [facility] Sodium Chloride 3 ml 09/30/20 16:00 10/06/20 16:17 0.9 % Sodium Chloride Flush 3 Ml Syringe IVFLUSH 3 ml QSHIFT [facility] Administration Tamsulosin HCl 0.4 mg 09/30/20 17:00 10/06/20 16:25 Tamsulosin Hcl 0.4 Mg Capsule PO Not Given DAILY@1700 [facility] Trazodone HCl 25 mg 10/02/20 22:11 10/02/20 22:28 Trazodone Hcl 25 Mg Halftab PO 25 mg BEDTIME PRN Administration Insomnia Labs CBC & Chem 7: 10/07/20 06:11 10/07/20 06:11 Microbiology Microbiology Results: Microbiology 09/30/20 10:48 Blood - Venous Blood Culture - Final No growth after 5 days. 09/30/20 10:39 Blood - Venous Blood Culture - Final No growth after 5 days. Assessment and Plan (1) Acute respiratory failure with hypoxia: Status: Acute (2) COVID-19: Problem details: Status: Acute Assessment and Plan: 80/m with HTN, HLD, history of colon cancer, depression here with 1. Sepsis due to COVID-19/pneumonia/ metabolic toxic encephalopathy. Awake No fevers Leukocytosis is trending up Tachycardia and tachypnea probably related to agitation, hypoxia. Chest [id number] of b/l pathcy dis and ABG done: Reviewed with pulm: Thought to be acute hypoxemic respiratory failure seems multifactorial-COVID pneumonia and as well as component of pulmonary edema Pulmonary recommended to continue current treatment with IV antibiotics, diuresis, also id saw the patient and recommended to continue current antibiotics and steroids, as per ID remdesivir is not indicated at present. Oxygen supportive care with Oxymizer and we added high-flow. in addition patient is uncoopertive and restlessness -require intermmittent anxiety meds also spoke to Pulm: we will add cta , venous dupplex study: negative. As per ID and Pulmonary seems poor prognosis. Id flores leukocytosis probably related to steroid and Granix 2. Acute toxic encephalopathy. Thought to be multifactorial: Related to sepsis, COVID-19 infection, confusion resolved initially but patient noticed to be pleasantly confused and at night was restless, likely sun downing. Received Ativan today for agitation, also has keep removing his oxygen. 3. metabolic acidosis/hypernatremia: Discussed with the Pulmonary and Nephro: Metabolic acidosis flores pH is 7.5, bicarb is 13 Thought to be metabolic earlier acidosis related to since patient have poor oral intake /Ftt, hypoxia . Nephro recommended to continue PPN . No need of sodium bicarb drip. hypernatremia flores : nephro recomeded to continue ppn and moniter bmp daily. has one episode of diarrahe yesterday 4. History of hypertension: blood pressure seems stable ,intilaly was hypotensive, received 4 L of IV fluid as per chart review, current blood pressure is stable will continue to hold home medications including hydrochlorothiazide and losartan. 5. Diabetes mellitus with elevated blood sugar, likely related to dexamethasone/ppn: fs running 200-250 not taking po, ph 7.5 less likely dka adjusted insulin sliding scale, diabetic diet ,hold metformin and dulaglutide that he takes at home 6. Neutropenic fever likely related to COVID-19 infection as well chemotherapy. WBC improved to 2.6 -received granix . received 2 days on granix 300mcg sc daily and now 28K. above discussed with ICU, pulm , ID and nephro in detail. Above management discussed with patient's vault maker Mario Joshi, phone #[phone], patient is full code. Patient condition discussed with family in detail length. also claled emerald's yesterday and explained to her in detail with the bisque tile burner, today also we have called her and explained with the help of patient grandanup Flowers: Patient full code currently, prognosis poor, in addition as per my discussion withMario Joshi, another grandson Mr. Flowers, patient also: This say that patient does not have a written healthcare proxy document but his and grandson's mutually wants to make decison for patient care currently, currently patient is full code .
[2020-10-06] MEDS: Morphine Sulfate 2 MG/ML CARTRIDGE 0.5 MG IVPUSH (17:30)
[2020-10-06 18:52] LABS: Lactate Dehydrogenase 889 U/L (118-273)
[2020-10-06 20:59] LABS: Glucose, Whole Blood 248 mg/dL (60-115)
[2020-10-07] VITALS (11 sets, daily range): BP systolic 115–160; BP diastolic 56–82; PULSE 75–100; RESP 19–25; TEMP 35.8–36.9; O2SAT 93–100; BMI 21.9
[2020-10-07] MEDS: Piperacillin Sodium/Tazobactam 3.375 GM in 0.9 % Sodium Chloride 50 ML IV ×3 (01:15→11:57)
[2020-10-07] MEDS: Doxycycline Hyclate 100 MG in 0.9 % Sodium Chloride 250 ML 166.67 MG IV ×2 (04:32→17:06)
[2020-10-07] MEDS: Heparin Sodium,Porcine 5,000 UNIT/ML VIAL 5000 UNIT SUBCUT ×2 (05:30→17:05)
[2020-10-07] MEDS: Pantoprazole Sodium 40 MG/10 ML VIAL IVPUSH (05:30)
[2020-10-07 06:47] LABS: Hematocrit 28.9 % (42-52); Hemoglobin 9.5 g/dl (14.0-18.0); Mean Corpuscular HGB Conc 32.9 g/dl (31.0-36.0); Mean Corpuscular Volume 91.2 fL (80-98); NRBC Pct Auto 0.6 /100WBC (0.0-0.2); Platelet Count 119 X10*3/uL (160-400); Red Blood Count 3.17 X10*6/uL (4.60-5.80); Red Cell Distribution Width 16.6 % (11.0-16.0); White Blood Count 16.4 X10*3/uL (4.8-10.8)
[2020-10-07 07:01] LABS: Anion Gap 22 (12-20); Blood Urea Nitrogen 20 mg/dL (9-16); Calcium 7.5 mg/dL (8.4-10.2); Carbon Dioxide 22 mmol/L (22-29); Chloride 109 mmol/L (96-108); Creatinine Clr Calc Pharmacy 69.8; Estimated Glomerular Filt Rate > 60; Glucose Random 407 mg/dL (60-115); Potassium 3.1 mmol/l (3.3-5.1); Sodium 150 mmol/L (135-145)
[2020-10-07 07:50] LABS: Glucose, Whole Blood 416 mg/dL (60-115)
[2020-10-07] MEDS: Insulin Lispro 100 UNIT/ML 3 ML VIAL SUBCUT ×4 (08:06→21:15)
[2020-10-07] MEDS: Potassium Chloride/H20 10 MEQ/100 ML PIGGYBACK 100 MEQ IV ×2 (08:07→09:13)
[2020-10-07] MEDS: 0.9 % Sodium Chloride Flush 3 ML SYRINGE IVFLUSH ×2 (08:07→17:05)
[2020-10-07] MEDS: LORazepam 2 MG/ML VIAL 0.5 MG IVPUSH (10:09)
[2020-10-07 10:10] LABS: Albumin Level 2.3 g/dL (3.5-5.0); Magnesium 1.6 mg/dL (1.6-2.6); Phosphorus 3.1 mg/dL (2.7-4.5)
--- NOTE | 2020-10-07 11:05 | MHC.CLN ---
RECOMMEND PPN D10 AA4.25% INCREASE TO 65CC/HR TO PROVIDE 796KCALS, 66G PROTEIN (.95G/KG) INCREASE PPN TOMORROW (10/08) TO 85CC/HR TO PROVIDE 1040KCALS, 87G PROTEIN (1.3G/KG) REPLETE LYTES NEEDED; DISCUSSED WITH PHARMACY
--- NOTE | 2020-10-07 11:17 | MHC.CM.PN ---
A copy of Patient's HCP has been placed on the chart and MD has been made aware of who the HCP Agent is and his contact information.DC plan is pending further MD discussion with the HCP.
[2020-10-07 11:44] LABS: Glucose, Whole Blood 338 mg/dL (60-115)
--- NOTE | 2020-10-07 13:20 | PC.NURSE ---
SINGLE ATTEMPT AT PICC INSERTION UNSUCCESSFUL VIA RUE BRACHIAL VEIN; ONCE VESSEL WAS ACCESSED, PT BEGAN TO MOVE ALL EXTREMITIES AND ACCESS WAS LOST. NOT FOLLOWING COMMANDS AT THIS TIME. PT HAS AMS AND IS MOVING TOO MUCH TO SAFELY PLACE PICC LINE AT THIS TIME. ORDERING HOSPITALIST PHYSICIAN DR LARSON MADE AWARE. PLAN FOR IR REFERRAL FOR PICC INSERTION.
--- NOTE | 2020-10-07 14:18 | P.PNNP_ITS ---
Subjective Subjective Date of Service: 10/07/20 Interval history: Acute hypoxemic respiratory failure secondary to COVID infection, metabolic acidosis D related to starvation ketosis, poor oral intake with failure to thrive. Physical Exam 2 Vital Signs: Vital Signs: Last Vital Signs Temp 97.3 F 10/07/20 11:36 Pulse 92 10/07/20 11:36 Resp 20 10/07/20 11:36 BP 139/70 10/07/20 11:36 Pulse Ox 99 10/07/20 11:36 Body Mass Index 21.9 Const: General: ill appearing HENMT: Head: Yes normocephalic and Yes atraumatic Neck: Neck: Yes supple Resp: Auscultation: diminished lung sounds Cardio: Rate: tachycardic Heart sounds: S1 normal heart sound present and S2 normal heart sound present GI: Palpation (GI): Soft to palpation and no guarding Extrem: General: Yes no pedal edema Assessment & Plan Assessment and plan (1) High anion gap metabolic acidosis: Status: Acute Assessment and Plan: HyperNa: d/t diarrhea and hoigh BS causing osmotic diuresis..needs incr FW replacement..note BS 400 and thus correct SNa is 154 NAGMA: reoslving COVID Resp Failure REC: incr FW replacement..D5W but need to contril BS; track SNa (2) Hypernatremia: Status: Acute (3) Hypokalemia: Status: Acute (4) COVID-19: Problem details: Status: Acute Assessment and Plan: HyperNa: d/t diarrhea and hoigh BS causing osmotic diuresis..needs incr FW re placement..note BS 400 and thus correct SNa is 154 NAGMA: reoslving COVID Resp Failure REC: incr FW replacement..D5W but need to contril BS; track SNa Time Spent With Patient Time: Total time spent is greater than 50% in coordination of care (as documented) at patient's floor/unit and/or counseling patient:
--- NOTE | 2020-10-07 14:34 | PM.EVENT ---
Event Note Date of Service: 10/08/20 Event Note: I was called by Dr. Zaragoza to evaluate Mr. Barboza bec of hypoxemia 2? COVID pneumonia, with altered mental status, and ? inability to protect his airway. I reviewed the chart. Note that the patient was seen by Dr. Conley both yesterday and the day before. [place] then [place] [facility] [place]. The patient is a 80-year-old gentleman with underlying history of metastatic colon cancer dx?d 2013, now undergoing chemotherapy (including steroids), hypertension, and diabetes mellitus. He was admitted to the medicine service on 09/30/2020 with lethargy, weakness, cough and fever. Mental status was altered on admission. Noted to have pancytopenia with neutropenic sepsis and COVID-19. Hospital course complicated by progressive hypoxemia. Treated with dexamethasone and broad-spectrum antibiotics. Sat was in the 90?s on room air until 10/04. Then went onto [place] oxygen. Then on 10/05 went onto oxymask, and then onto HFNC on 10/06. CTA on 10/05 showed evolution of diffuse patchy parenchymal airspace/groundglass opacities, predominantly peripheral in location, suggestive of multifocal pneumonia such as Covid 19. There were no central pulmonary emboli. Motion artifact precluded evaluation of the segmental and subsegmental branches. There was no evidence of right heart strain. On Dr. Conley?s evaluation yesterday and the day before, there was no requirement for ICU level of care. On my evaluation this afternoon, the patient is awake and definitely altered. On my arrival, the PICC line team was preparing a sterile field to place a PICC line. The patient was completely uncooperative and non interactive to commands. He was moving his arms around in bed. I indicated to the PICC line team that there was no way they were going to be able to place a PICC line in a patient such as this without sedation by an anesthesiologist. The procedure was abandoned. After the sterile drape was removed, I was able to examine the patient's breathing. Respiratory rate is 28-30 with no accessory muscle use and no increased work of breathing, other than that due to his increased respiratory rate. Chest excursion is low-normal. SpO2 is 99% on what the [facility] vital signs record seems to indicated as 100% HFNC. IMAGING: I am unable to currently access images due to technical difficulties. [employer] is working on it. IMPRESSION: 1. Acute hypoxemic respiratory failure in a 80-year-old very high risk gentleman due to typical progression of COVID 19 pneumonia. 2. Altered mental status. Not clear whether this is his baseline, whether this is due to ?sepsis?, whether this is the usual delirium we see in elderly hospitalized patients, or whether this is COVID-19 delirium. Note that the patient has previously been treated with Ativan. This itself may be the cause of his altered mental status Recommend the followin. The patient?s baseline mental status and functional status should be determined. 2. The family should be informed of his very high mortality risk. 3. The patient needs a sitter (if for no other reason than to make sure that he doesn?t remove his suppl oxygen device), unless his delirium can be controlled. 4. Ativan should be avoided in patients older than 70. Seroquel or risperadal or Haldol may be helpful in this patient. Droperidol might or might not be helpful for procedural sedation done without anesthesiologist help. 5. The patient (any patient on 100% HFNC) needs IV access that is 100% secure, and preferably central access so blood gasses can be drawn at the drop of a hat to measure pCO2. 6. This patient needs more than just dexamethasone 6mg daily treatment for COVID 19. I would add the following: -Vitamin C 1000 mg po q 6 hours -Zinc 100 mg po daily -Melatonin 9 mg at night -Vitamin D3 2000 units daily -B complex vitamin daily -Enoxaparin ? mg/kg bid -Methylprednisolone 40 mg q 12 hourly -Famotidine 40 mg BID (IV or po) -Thiamine 200 mg IV q 12 hours -Magnesium 2 g IV, then keep Mg between 2.0 and 2.4 mmol/l. -Atorvastatin 80 mg/day. (If the patient cannot take oral meds, then he just won't get those.) Monitoring: Daily DDimer, CRP, Ferritin, procalcitonin, and Mg. THE PATIENT SHOULD HAVE A VBG DONE EVERY MORNING WITH HIS REGULAR MORNING LAB WORK. I will follow the patient daily. Time: 60 min. ([id number] [phone] [id number])
--- NOTE | 2020-10-07 15:30 | PC.NURSE ---
PICC LINE ORDER CANCELLED PER DR LARSON. PRIMARY RN TERESA DAVIS.
[2020-10-07 16:54] LABS: Glucose, Whole Blood 221 mg/dL (60-115)
--- NOTE | 2020-10-07 17:52 | CONS_ITS ---
DATE OF SERVICE: 10/05/2020 HISTORY OF PRESENT ILLNESS: This is a 80-year-old patient, who was admitted to the hospital with COVID-19 pneumonia and is currently with metabolic acidosis. The patient reported to be confused, refusing care including his medication. Not being able to keep his oxygen own with frequent desaturation. He had presented to the hospital on September 30 because of generalized weakness, tachycardia, elevated temperature. The patient was eventually started on IV fluid in the setting of sepsis related to his underlying pneumonia and COVID-19 infection. PAST MEDICAL HISTORY: Remarkable for diabetes mellitus, hypertension, depression, colon cancer, history of colon resection. MEDICATIONS: As an outpatient were reviewed and include aspirin, Lipitor, Nexium, hydrochlorothiazide, losartan, metformin, Zofran, Flomax. ALLERGIES: HE IS NOT ALLERGIC TO MEDICATIONS. SOCIAL HISTORY: He does not smoke. FAMILY HISTORY: Negative for kidney disease. REVIEW OF SYSTEMS: Ten point system negative except pertinent in history of present illness. PHYSICAL EXAMINATION: VITAL SIGNS: Blood pressure is 142/82, heart rate 120, respiratory rate 22, temperature 97.3, oxygen saturation 89%. CONSTITUTIONAL: Looks stated age. Looks ill. HEAD: Atraumatic, normocephalic. NECK: Supple. LUNGS: Decreased breath sounds. CARDIOVASCULAR: S1, S2. Tachy. ABDOMEN: Soft. Nontender. EXTREMITIES: With no pedal edema. LABORATORY DATA: Showed blood gas; pH 7.41, pCO2 of 20, PO2 of 53. Sodium 147, potassium 3.6, chloride 110, CO2 of 13, BUN 12, creatinine 0.8. Lactic acid 3.3. Acetone is moderate. Anion gap was 28. IMPRESSION: 1. Anion gap metabolic acidosis. 2. Hyponatremia. This is a patient with COVID-19 pneumonia, who is currently with anion gap metabolic acidosis and elevated serum sodium due to free water deficit. I suspect the metabolic acidosis is multifactorial in part to lactic acidosis, which is a type A lactic acidosis due to poor tissue perfusion. On the other hand, there is evidence for starvation ketosis as he did have an elevated acetone. He had been on metformin, but his kidney function is normal. It is very unlikely to be due to metformin, which can cause type B lactic acidosis. I would not recommend at the present time bicarbonate as his pH is 7.41 and would suggest to have on D5 water or PPN. We will continue to follow his kidney function closely along with the medical team. Thank you for allowing me to participate in the care of your patient. MD FRANCO Mcgowan/NIKKI / [id number]
[2020-10-07] MEDS: Magnesium Sulfate/H2O 2 GM/50 ML PIGGYBACK IV (18:06)
--- NOTE | 2020-10-07 18:18 | P.PNIM_ITS ---
Subjective Subjective Date of Service: 10/08/20 Interval History: Acute respiratory failure secondary to COVID. Review of Systems Patient still short of breath only open eyes Intermittent restlessness. Physical Exam Vital Signs: Vital Signs: Last Vital Signs Temp 97.5 F 10/07/20 15:58 Pulse 75 10/07/20 15:58 Resp 22 H 10/07/20 16:43 BP 151/65 H 10/07/20 15:58 Pulse Ox 95 10/07/20 15:58 Body Mass Index 21.9 Physical exam: Constitutional: Only open eyes, restlessness Cvs: rrr, [id number] , no murmur res: Air entry diminished at bases abd: Soft, nondistended, bowel sounds are present, with deep palpation does not have impression of pain including grimaces or any facial impression. ext pulses present , no cyanosis Objective Data Current Medications Generic Name Dose Route Start Last Admin Trade Name Freq PRN Reason Stop Dose Admin Acetaminophen 650 mg 09/30/20 15:19 Acetaminophen 325 Mg Tablet PO Q6H PRN Pain, Mild (Pain Scale 1-3) Benzocaine 1 lozenge 10/01/20 11:45 Throat Lozenge, Medicated Lozenge MUCOUS MEM Q2H PRN Sore Throat Famotidine 20 mg 10/07/20 21:00 Famotidine/Pf 20 Mg/2 Ml Vial IVPUSH BID JEROD Heparin Sodium (Porcine) 5,000 unit 10/05/20 23:00 10/07/20 17:05 Heparin Sodium,Porcine 5,000 Unit/Ml Vial SUBCUT 5,000 unit Q8H JEROD Administration Doxycycline Hyclate 100 mg/ 250 mls @ 166.67 mls/hr 10/01/20 16:00 10/07/20 17:06 Sodium Chloride IV 166.67 mls/hr Q12H JEROD Administration Potassium Chloride 20 meq/ 1,560 mls @ 65 mls/hr 10/07/20 18:00 Sodium Chloride 20 meq/ IVCONT 10/08/20 17:59 Magnesium Sulfate 10 meq/ DAILY@1800 JEROD Potassium Phosphate 30 mmol/ Calcium Gluconate 9.3 meq/ Multivitamins 12.8 ml/ Trace Metals 1.3 ml/ Amino Acids/ Electrolytes/Dextrose Dextrose 1,000 mls @ 80 mls/hr 10/07/20 16:15 D5w IVCONT .[id number] JEROD Magnesium Sulfate 2 gm in 50 mls @ 25 mls/hr 10/07/20 16:41 10/07/20 18:06 IV 10/07/20 18:40 25 mls/hr ONCE ONE Administration Thiamine HCl 200 mg/ Sodium 102 mls @ 204 mls/hr 10/07/20 16:45 Chloride IV Q12H [facility] Insulin Glargine 20 unit 10/07/20 21:00 Insulin Glargine,Hum.Rec.Anlog 100 Unit/Ml 10 Ml Vial SUBCUT BID [facility] Insulin Human Lispro 0 unit 09/30/20 21:00 10/07/20 18:05 Insulin Lispro 100 Unit/Ml 3 Ml Vial SUBCUT 2 unit QIDACHS [facility] Administration Protocol Lidocaine/Diphenhydr/Alum/Mg/Simeth 10 ml 09/30/20 18:15 10/07/20 17:53 Mag&Al/Sim/Diphenhyd/Lidocaine 10 Ml Oral.Susp PO Not Given Q6H [facility] Protocol Methylprednisolone Sodium Succinate 40 mg 10/07/20 17:00 10/07/20 17:12 Methylprednisolone Sod Succ/Pf 40 Mg/Ml Vial IVPUSH 40 mg Q12H [facility] Administration Ondansetron HCl 4 mg 09/30/20 15:19 Ondansetron Hcl 4 Mg/2 Ml Vial IVPUSH Q8H PRN Nausea and Vomiting Pantoprazole Sodium 40 mg 10/06/20 06:30 10/07/20 05:30 Pantoprazole Sodium 40 Mg/10 Ml Vial IVPUSH 40 mg DAILY@0630 [facility] Administration Pharmacy Consult 1 each 09/30/20 11:28 Consult Rx Perform Med Rec MISCELLANE ONCE PRN Consult order Sertraline HCl 100 mg 10/01/20 09:00 10/07/20 08:08 Sertraline Hcl 100 Mg Tablet PO Not Given DAILY [facility] Sodium Chloride 3 ml 09/30/20 16:00 10/07/20 17:05 0.9 % Sodium Chloride Flush 3 Ml Syringe IVFLUSH 3 ml QSHIFT [facility] Administration Tamsulosin HCl 0.4 mg 09/30/20 17:00 10/07/20 17:12 Tamsulosin Hcl 0.4 Mg Capsule PO Not Given DAILY@1700 [facility] Trazodone HCl 25 mg 10/02/20 22:11 10/02/20 22:28 Trazodone Hcl 25 Mg Halftab PO 25 mg BEDTIME PRN Administration Insomnia Labs CBC & Chem 7: 10/08/20 12:59 10/08/20 12:59 Microbiology Microbiology Results: Microbiology 09/30/20 10:48 Blood - Venous Blood Culture - Final No growth after 5 days. 09/30/20 10:39 Blood - Venous Blood Culture - Final No growth after 5 days. Assessment and Plan (1) Acute respiratory failure with hypoxia: Problem details: severe with extensive GGO Status: Acute (2) COVID-19: Status: Acute Assessment and Plan: 80/m with HTN, HLD, history of colon cancer, depression here with 1. Sepsis due to COVID-19/pneumonia/ metabolic toxic encephalopathy. Awake No fevers Leukocytosis is trending down slowly Tachycardia and tachypnea still intermittent. Initially patient chest x-ray has by better patches disease and subsequently was started on IV antibiotic initially-IV doxycycline and Zosyn, also was on p.o. dexamethasone: Subsequently shortness of breath progressively worsening and CTA shows progressive disease. Patient was seen by Pulmonary, id, ICU: Recommended to continue oxygen and high-flow currently, also dexamethasone was switched to IV dexamethasone, Id flores:He is in inflammatory phase of COVID,day 6 at least post diagnosis He never had acute viral phase with early oxygen need where Remdesivir may benefit although data shows doesnt improve mortality or less progression to intubation. In addition patient also received trial of IV Lasix chance to give the benefit of doubt of any question of chf. afterwards : And still was short of breath and hypoxic-on 100% oxygen. Id recommended to continue doxycycline for now, blood culture at 5 days negative. As per ID and Pulmonary seems poor prognosis. Discussed with ICU today: Please try to taper oxygen if possible, in addition iv solumedrol, also added famotidine, thiamine, magnesium.also d/w icu will cotninue sc heparin for dvt prophyax ICU recommended-if patient still desaturate on 100% oxygen then we need to get an ABG and calling back ICU. Will also add CRP, ferritin, procalcitonin, magnesium, D-dimer follow-up labs for COVID in morning. 2. Acute toxic encephalopathy. Thought to be multifactorial: Related to sepsis, COVID-19 infection, hyponatremia. Hold off benzodiazepine for agitation Spoke to the nursing cost control supervisor possibility of sitter Agitation flores ICU recommended: Seroquel or risperadal or Haldol may be helpful in this patient last resort. 3. metabolic acidosis/hypernatremia: Discussed with the Pulmonary and Nephro: Metabolic acidosis flores yesterday pH is 7.5, bicarb is 13 Thought to be metabolic earlier acidosis related to since patient have poor oral intake /Ftt, hypoxia . nephro recomended -start d5w 80 ml/hr . hypernatremia flores : moniter bmp around 10 pm has one episode of diarrahe 2 days back. 4. History of hypertension: blood pressure seems currently stable , admission was hypotensive, received 4 L of IV fluid as per chart review, current blood pressure is stable will continue to hold home medications including hydrochlorothiazide and losartan. 5. Diabetes mellitus with elevated blood sugar, likely related to dexamethasone/ppn: fs running 200-250 not taking po, Yesterday ph 7.5 Bicarb seems to be improving adjusted insulin sliding scale, added Lantus ,moniter fs closely q1hrly ( night staff is aware) hold metformin and dulaglutide that he takes at home 6. initially Neutropenic fever likely related to COVID-19 infection as well chemotherapy. WBC improved to 2.6 -received granix . received 2 days on granix 300mcg sc daily and now 28K. above discussed with ICU, pulm , ID and nephro in detail. Above management discussed with patient's food service team member Mario Joshi, phone #[phone], Ranjan and patient :patient is full code. Also family was told in detail that prognosis is very poor and patient is very high mortality risk. In addition patient was discussed with the family: Family was patient was requiring assistance with ADLs out patiently even before admission, also having minimum p.o. intake from last 2-3 weeks and progressively declining.
[2020-10-07] MEDS: Thiamine HCL 200 MG in 0.9 % Sodium Chloride 100 ML 204 MG IV (18:45)
[2020-10-07 19:19] LABS: Glucose, Whole Blood 265 mg/dL (60-115)
[2020-10-07] MEDS: Dextrose 5 % 1,000 ML 80 ML IVCONT (20:02)
[2020-10-07] MEDS: Famotidine/PF 20 MG/2 ML VIAL IVPUSH (20:02)
[2020-10-07 20:29] LABS: Glucose, Whole Blood 264 mg/dL (60-115)
[2020-10-07 21:04] LABS: Glucose, Whole Blood 275 mg/dL (60-115)
[2020-10-07] MEDS: Insulin Glargine,Hum.rec.anlog 100 UNIT/ML 10 ML VIAL 20 UNIT SUBCUT (21:14)
[2020-10-07 21:42] LABS: Sodium 153 mmol/L (135-145)
[2020-10-07 22:11] LABS: Glucose, Whole Blood 272 mg/dL (60-115)
[2020-10-07 23:23] LABS: Glucose, Whole Blood 283 mg/dL (60-115)
[2020-10-08] VITALS (14 sets, daily range): BP systolic 126–166; BP diastolic 62–82; PULSE 61–85; RESP 19–22; TEMP 35.8–36.9; O2SAT 89–100
[2020-10-08 00:45] LABS: Glucose, Whole Blood 296 mg/dL (60-115)
[2020-10-08] MEDS: Insulin Lispro 100 UNIT/ML 3 ML VIAL 10 UNIT SUBCUT ×2 (01:17→03:05)
[2020-10-08 02:09] LABS: Glucose, Whole Blood 312 mg/dL (60-115)
[2020-10-08 02:41] LABS: Anion Gap 16 (12-20); Blood Urea Nitrogen 24 mg/dL (9-16); Calcium 7.4 mg/dL (8.4-10.2); Carbon Dioxide 24 mmol/L (22-29); Chloride 114 mmol/L (96-108); Creatinine Clr Calc Pharmacy 56.4; Estimated Glomerular Filt Rate > 60; Glucose Random 331 mg/dL (60-115); Potassium 3.2 mmol/l (3.3-5.1); Sodium 151 mmol/L (135-145)
[2020-10-08 03:57] LABS: Glucose, Whole Blood 244 mg/dL (60-115)
[2020-10-08] MEDS: Potassium Chloride/H20 10 MEQ/100 ML PIGGYBACK 100 MEQ IV ×2 (04:00→05:19)
[2020-10-08] MEDS: Doxycycline Hyclate 100 MG in 0.9 % Sodium Chloride 250 ML 166.67 MG IV ×2 (04:10→14:59)
[2020-10-08 05:01] LABS: Glucose, Whole Blood 176 mg/dL (60-115)
[2020-10-08] MEDS: Dextrose 5 % 1,000 ML 80 ML IVCONT (06:04)
[2020-10-08 06:06] LABS: Glucose, Whole Blood 140 mg/dL (60-115)
[2020-10-08] MEDS: Heparin Sodium,Porcine 5,000 UNIT/ML VIAL 5000 UNIT SUBCUT ×2 (06:13)
[2020-10-08] MEDS: Pantoprazole Sodium 40 MG/10 ML VIAL IVPUSH (06:18)
[2020-10-08 07:32] LABS: Glucose, Whole Blood 119 mg/dL (60-115)
[2020-10-08 07:57] LABS: Base Excess VBG 3.6 mmol/L; HCO3 VBG 29 mmol/L; PCO2 VBG 49 mmhg; PO2 VBG 29 mmhg
[2020-10-08] MEDS: Famotidine/PF 20 MG/2 ML VIAL IVPUSH ×2 (07:58→21:49)
[2020-10-08] MEDS: Insulin Glargine,Hum.rec.anlog 100 UNIT/ML 10 ML VIAL 20 UNIT SUBCUT ×2 (07:58→21:49)
[2020-10-08] MEDS: 0.9 % Sodium Chloride Flush 3 ML SYRINGE IVFLUSH ×2 (07:59→14:59)
[2020-10-08] MEDS: Thiamine HCL 200 MG in 0.9 % Sodium Chloride 100 ML 204 MG IV ×2 (07:59→16:30)
[2020-10-08 08:08] LABS: D Dimer 3320 NG/ML
[2020-10-08 08:10] LABS: Blood Urea Nitrogen 21 mg/dL (9-16); C Reactive Protein 12.52 mg/dL (< or = 0.50); Calcium 7.5 mg/dL (8.4-10.2); Creatinine Clr Calc Pharmacy 91.7; Estimated Glomerular Filt Rate > 60; Glucose Random 109 mg/dL (60-115)
[2020-10-08 08:15] LABS: Glucose, Whole Blood 121 mg/dL (60-115)
[2020-10-08 08:20] LABS: Hematocrit 29.7 % (42-52); Hemoglobin 9.5 g/dl (14.0-18.0); Mean Corpuscular Hemoglobin 29.4 pg (27.0-33.0); Mean Platelet Volume 11.2 fL (9.4-12.4); NRBC Pct Auto 0.6 /100WBC (0.0-0.2); Platelet Count 117 X10*3/uL (160-400); Red Blood Count 3.23 X10*6/uL (4.60-5.80); Red Cell Distribution Width 16.5 % (11.0-16.0); White Blood Count 17.3 X10*3/uL (4.8-10.8)
[2020-10-08 08:21] LABS: Anion Gap 15 (12-20); Carbon Dioxide 26 mmol/L (22-29); Chloride 115 mmol/L (96-108); Potassium 3.4 mmol/l (3.3-5.1); Sodium 153 mmol/L (135-145)
[2020-10-08 08:28] LABS: Procalcitonin 0.24 ng/mL
[2020-10-08 09:07] LABS: Ferritin 2630 ng/mL (20-250)
[2020-10-08 09:15] LABS: Glucose, Whole Blood 129 mg/dL (60-115)
--- NOTE | 2020-10-08 10:04 | P.EN_ITS ---
Event Note Date of Service: 10/08/20 Event Note: I?m following Mr. Barboza at the request of Dr. Zaragoza. The patient is on [facility] with hypoxemic respiratory failure 2? COVID pneumonia, with altered mental status. See my extended note from yesterday. I rounded on the patient this morning at 08:15. The patient's mental status is still altered. He was lying flat in bed, breathing easy, with a respiratory rate of 24-26. No access musc use or increase in WOB, other than attributable to his RR. His non-rebreather face mask was completely off, and his high-flow nasal cannula was up around his forehead (i.e. he was breathing room air). Sat on the monitor was 79-80%. The patient is afebrile. COVID BIOMARKERS: D-dimer is 3320. Ferritin 2630. CRP 12. Procalcitonin 0.2. BUN/creatinine 21/0.6. VBG showed PvCO2 of 49 (equivalent to an arterial pCO2 of about 40mm -- about 9-10 points lower than the venous pCO2). IMPRESSION: 1. Acute hypoxemic respiratory failure in a 80-year-old very high risk gentleman due to typical progression of COVID 19 pneumonia. A room air sat of 80% for this gentleman is outstanding. Obviously, we should make sure he continuously wears has high-flow nasal cannula. 2. Altered mental status. From what Dr. Zaragoza tells me, the family indicates that the patient?s baseline mental status is more or less normal. I.e. his current mental status is definitely delirium (toxic/metabolic encephalopathy). Recommend the followin. The family should be informed of his very high mortality risk. 2. The patient needs a sitter, if for no other reason than to make sure that he doesn?t remove his suppl oxygen device, unless his delirium can be controlled. 3. Ativan should be avoided in patients older than 70. Seroquel or risperadal or Haldol may be helpful in this patient. Droperidol might or might not be helpful for procedural sedation done without anesthesiologist help. 4. The patient (any patient on 100% HFNC) needs IV access that is 100% secure, and preferably central access so blood gasses can be drawn at the drop of a hat to measure pCO2. 5. This patient needs more than just dexamethasone 6mg daily treatment for COVID 19. See yesterday?s note for my additional recommendations. 6. I do not see a clear need here for antibacterial antibiotics, especially given his lack of fever and near normal procalcitonin. Doxycycline is probably OK though. Might have some benefit. 7. Given his D-dimer, I recommend half dose Lovenox (i.e. 0.5 mg/kg bid); d/c his current pharmacological and mechanical DVT prophylaxis. 8. Given his severe hypoxemia and markedly elevated Ferritin, suggest increasing solumedrol to 80 mg bid. 9. Keep Mg level betw 2-2.4. Continue the following daily monitoring: Daily VBG, DDimer, CRP, Ferritin, procalcitonin, and Mg with his usual morning labs. I will follow the patient daily. ADDENDUM at 10:00. I was called up to [facility] to see the patient again bec of Sat 69%. Apparently his suppl oxygen was off again. By the time I got there, he was on HfNC with Sat 96%, breathing easy, with absolutely no increase in WOB. Discussed twice with Dr. Zaragoza. Time: 50+ min. ([id number] [phone] [id number])
[2020-10-08] MEDS: Haloperidol Lactate 5 MG/ML VIAL IV (10:58)
--- NOTE | 2020-10-08 11:03 | PM.PNNEP ---
Subjective Subjective Date of Service: 10/08/20 Interval history: Seen and examined. Confused and agitated Physical Exam Vital Signs: Vital Signs: Last Vital Signs Temp 96.4 F L 10/08/20 07:22 Pulse 65 10/08/20 07:22 Resp 20 10/08/20 07:44 BP 144/67 H 10/08/20 07:22 Pulse Ox 89 L 10/08/20 07:22 Body Mass Index 21.9 Const: General: ill appearing HENMT: Head: Yes normocephalic and Yes atraumatic Neck: Neck: Yes supple Resp: Auscultation: diminished lung sounds Cardio: Rate: tachycardic Heart sounds: S1 normal heart sound present and S2 normal heart sound present GI: Palpation (GI): Soft to palpation and no guarding Extrem: General: Yes no pedal edema Assessment & Plan Assessment and plan (1) High anion gap metabolic acidosis: Status: Acute (2) Hypernatremia: Status: Acute (3) Hypokalemia: Status: Acute (4) COVID-19: Problem details: Status: Acute Assessment and Plan: HyperNa: depsite D5W infusion reamins HyperNa > 150; d/t diarrhea and high BS causing osmotic; doubt DI; diuresis..needs incr FW replacement..note BS much imporved NAGMA: reoslving COVID Resp Failure REC: incr FW replacement..D5W at 150/hjr and SNa q 12 hrs..goal is to f get SNa 140-148 range; check Uosm ( I will order) Time Spent With Patient Time: Total time spent is greater than 50% in coordination of care (as documented) at patient's floor/unit and/or counseling patient:
[2020-10-08 11:30] LABS: Glucose, Whole Blood 148 mg/dL (60-115)
[2020-10-08 12:01] LABS: Pt Ventilation O2% 100%
[2020-10-08 12:08] LABS: ABG PCO2 34 mmhg (32-45); pH ABG 7.53 (7.35-7.45)
[2020-10-08 12:09] LABS: Base Excess ABG 5.1; HCO3 ABG 28 mmol/l (22-26); Oxygen Saturation ABG 87.4 %
[2020-10-08 12:11] LABS: PO2 ABG 48 mmhg (83-108)
--- NOTE | 2020-10-08 13:31 | P.PNPL_ITS ---
Subjective Subjective Date of Service: 10/09/20 Interval history: The patient was seen on exam. He appears to be very confused or not able to answer simple questions. He is wearing high-flow. Seems to be agitated at times. He did have a blood gas done demonstrating extreme hypoxia but no evidence of any hypercarbia to explains is altered mental status. Objective Data Labs CBC & Chem 7: 10/08/20 12:59 10/09/20 06:03 Labs: Laboratory Results - last 24 hr 10/03/20 10/07/20 10/07/20 15:09 16:44 19:15 WBC RBC Hgb Hct MCV MCH MCHC RDW Plt Count MPV Absolute Nucleated RBC Nucleated RBC % (auto) Smear Path Review SEE NOTE D-Dimer ABG pH ABG pCO2 ABG pO2 ABG HCO3 ABG O2 Saturation ABG Base Excess VBG pH VBG pCO2 VBG pO2 VBG HCO3 VBG O2 Saturation VBG Base Excess Oxygen Given Sodium Potassium Chloride Carbon Dioxide Anion Gap BUN Creatinine Estim Creat Clear Calc Estimated GFR POC Glucose 221 H 265 H Random Glucose Calcium Ferritin C-Reactive Protein Procalcitonin 10/07/20 10/07/20 10/07/20 20:26 21:00 21:02 WBC RBC Hgb Hct MCV MCH MCHC RDW Plt Count MPV Absolute Nucleated RBC Nucleated RBC % (auto) Smear Path Review D-Dimer ABG pH ABG pCO2 ABG pO2 ABG HCO3 ABG O2 Saturation ABG Base Excess VBG pH VBG pCO2 VBG pO2 VBG HCO3 VBG O2 Saturation VBG Base Excess Oxygen Given Sodium 153 H Potassium Chloride Carbon Dioxide Anion Gap BUN Creatinine Estim Creat Clear Calc Estimated GFR POC Glucose 264 H 275 H Random Glucose Calcium Ferritin C-Reactive Protein Procalcitonin 10/07/20 10/07/20 10/08/20 22:06 23:18 00:41 WBC RBC Hgb Hct MCV MCH MCHC RDW Plt Count MPV Absolute Nucleated RBC Nucleated RBC % (auto) Smear Path Review D-Dimer ABG pH ABG pCO2 ABG pO2 ABG HCO3 ABG O2 Saturation ABG Base Excess VBG pH VBG pCO2 VBG pO2 VBG HCO3 VBG O2 Saturation VBG Base Excess Oxygen Given Sodium Potassium Chloride Carbon Dioxide Anion Gap BUN Creatinine Estim Creat Clear Calc Estimated GFR POC Glucose 272 H 283 H 296 H Random Glucose Calcium Ferritin C-Reactive Protein Procalcitonin 10/08/20 10/08/20 10/08/20 02:00 02:04 03:52 WBC RBC Hgb Hct MCV MCH MCHC RDW Plt Count MPV Absolute Nucleated RBC Nucleated RBC % (auto) Smear Path Review D-Dimer ABG pH ABG pCO2 ABG pO2 ABG HCO3 ABG O2 Saturation ABG Base Excess VBG pH VBG pCO2 VBG pO2 VBG HCO3 VBG O2 Saturation VBG Base Excess Oxygen Given Sodium 151 H Potassium 3.2 L Chloride 114 H Carbon Dioxide 24 Anion Gap 16 BUN 24 H Creatinine 1.04 Estim Creat Clear Calc 56.4 Estimated GFR > 60 POC Glucose 312 H 244 H Random Glucose 331 H Calcium 7.4 L Ferritin C-Reactive Protein Procalcitonin 10/08/20 10/08/20 10/08/20 04:58 05:59 07:28 WBC RBC Hgb Hct MCV MCH MCHC RDW Plt Count MPV Absolute Nucleated RBC Nucleated RBC % (auto) Smear Path Review D-Dimer ABG pH ABG pCO2 ABG pO2 ABG HCO3 ABG O2 Saturation ABG Base Excess VBG pH VBG pCO2 VBG pO2 VBG HCO3 VBG O2 Saturation VBG Base Excess Oxygen Given Sodium Potassium Chloride Carbon Dioxide Anion Gap BUN Creatinine Estim Creat Clear Calc Estimated GFR POC Glucose 176 H 140 H 119 H Random Glucose Calcium Ferritin C-Reactive Protein Procalcitonin 10/08/20 10/08/20 10/08/20 07:37 07:37 07:38 WBC RBC Hgb Hct MCV MCH MCHC RDW Plt Count MPV Absolute Nucleated RBC Nucleated RBC % (auto) Smear Path Review D-Dimer 3320 ABG pH ABG pCO2 ABG pO2 ABG HCO3 ABG O2 Saturation ABG Base Excess VBG pH 7.40 VBG pCO2 49 VBG pO2 29 VBG HCO3 29 VBG O2 Saturation TNP VBG Base Excess 3.6 Oxygen Given Sodium Potassium Chloride Carbon Dioxide Anion Gap BUN Creatinine Estim Creat Clear Calc Estimated GFR POC Glucose Random Glucose Calcium Ferritin C-Reactive Protein Procalcitonin 0.24 10/08/20 10/08/20 10/08/20 07:38 07:38 08:11 WBC 17.3 H RBC 3.23 L Hgb 9.5 L Hct 29.7 L MCV 92.0 MCH 29.4 MCHC 32.0 RDW 16.5 H Plt Count 117 L MPV 11.2 Absolute Nucleated RBC 0.100 H Nucleated RBC % (auto) 0.6 H Smear Path Review D-Dimer ABG pH ABG pCO2 ABG pO2 ABG HCO3 ABG O2 Saturation ABG Base Excess VBG pH VBG pCO2 VBG pO2 VBG HCO3 VBG O2 Saturation VBG Base Excess Oxygen Given Sodium 153 H Potassium 3.4 Chloride 115 H Carbon Dioxide 26 Anion Gap 15 BUN 21 H Creatinine 0.64 Estim Creat Clear Calc 91.7 Estimated GFR > 60 POC Glucose 121 H Random Glucose 109 D Calcium 7.5 L Ferritin 2630 H C-Reactive Protein 12.52 H Procalcitonin 10/08/20 10/08/20 10/08/20 09:12 11:15 11:50 WBC RBC Hgb Hct MCV MCH MCHC RDW Plt Count MPV Absolute Nucleated RBC Nucleated RBC % (auto) Smear Path Review D-Dimer ABG pH 7.53 H ABG pCO2 34 ABG pO2 48 L* ABG HCO3 28 H ABG O2 Saturation 87.4 ABG Base Excess 5.1 VBG pH VBG pCO2 VBG pO2 VBG HCO3 VBG O2 Saturation VBG Base Excess Oxygen Given 100% Sodium Potassium Chloride Carbon Dioxide Anion Gap BUN Creatinine Estim Creat Clear Calc Estimated GFR POC Glucose 129 H 148 H Random Glucose Calcium Ferritin C-Reactive Protein Procalcitonin Microbiology Microbiology Results: Microbiology 09/30/20 10:48 Blood - Venous Blood Culture - Final No growth after 5 days. 09/30/20 10:39 Blood - Venous Blood Culture - Final No growth after 5 days. Review of Systems Review of Systems Yes Unobtainable due to mental status Constitutional: Reports weakness Cardiovascular: Reports dyspnea Respiratory: Reports dyspnea Reports as per HPI, Reports Abnormal speech present, Reports confusion and Reports weakness Psychiatric: Reports confusion Physical Exam Vital Signs: Vital Signs: Last Vital Signs Temp 96.6 F L 10/08/20 12:00 Pulse 61 10/08/20 12:00 Resp 19 10/08/20 12:00 BP 164/79 H 10/08/20 12:00 Pulse Ox 100 10/08/20 12:00 Body Mass Index 21.9 Const: General: confusion, ill appearing and lethargic [place] ation/consciousness: confusion and lethargic Eyes: Pupils: Equal, round and reactive pupils present Neck: Neck: Yes supple Chest: Chest palpation & inspection: normal inspection of the chest Resp: Auscultation: diminished lung sounds Neuro: General: confusion Cranial nerves: Yes Equal, round and reactive pupils present Speech: Abnormal speech present Extrem: General: No clubbing and No cyanosis Assessment and Plan Assessment and plan (1) Acute respiratory failure with hypoxia: Problem details: severe with extensive GGO Status: Acute Assessment and Plan: Continue H (2) COVID-19: Status: Acute Assessment and Plan: Conv plasma (3) Pneumonia: Problem details: Believe lobar pneumonia most prominent concern There could be MRSA,gram negative Most likely post COVID Patient guarded prognosis Status: Acute (4) Colon cancer metastasized to liver: Status: Acute (5) Encephalopathy: Problem details: ? encephalitis due to covid. Status: Acute Time Spent With Patient Time: Total time spent is greater than 50% in coordination of care (as documented) at patient's floor/unit and/or counseling patient: Time with patient: 15 - 24 minutes
[2020-10-08 13:45] LABS: Hematocrit 28.9 % (42-52); Hemoglobin 9.8 g/dl (14.0-18.0); Mean Corpuscular HGB Conc 33.9 g/dl (31.0-36.0); Mean Corpuscular Hemoglobin 31.1 pg (27.0-33.0); Mean Corpuscular Volume 91.7 fL (80-98); Mean Platelet Volume 11.4 fL (9.4-12.4); NRBC Pct Auto 0.5 /100WBC (0.0-0.2); Platelet Count 103 X10*3/uL (160-400); Red Blood Count 3.15 X10*6/uL (4.60-5.80); Red Cell Distribution Width 16.6 % (11.0-16.0); White Blood Count 16.5 X10*3/uL (4.8-10.8)
[2020-10-08 13:50] LABS: INTERNATIONAL NORM RATIO 1.1 (0.9-1.1); Prothrombin Time 13.1 SEC (10.8-13.0)
[2020-10-08 13:53] LABS: Partial Thromboplastin Time 24.4 SEC (24.1-38.0)
[2020-10-08 13:54] LABS: Sodium 148 mmol/L (135-145)
--- NOTE | 2020-10-08 14:39 | MHC.CLN ---
F/U RECOMMEND INCREASING PPN TO 85CC/HR TO PROVIDE 1040KCALS, 87G PROTEIN (1.3G/KG) REPLETE LYTES NEEDED; DISCUSSED WITH PHARMACY FOLLOWING
[2020-10-08] MEDS: Enoxaparin Sodium 60 MG/0.6 ML SYRINGE 35 MG SUBCUT (14:58)
[2020-10-08 15:35] LABS: Glucose, Whole Blood 228 mg/dL (60-115)
[2020-10-08] MEDS: Insulin Lispro 100 UNIT/ML 3 ML VIAL SUBCUT ×2 (16:30→21:49)
[2020-10-08] MEDS: Dextrose 5 % 1,000 ML 150 ML IVCONT (16:33)
--- NOTE | 2020-10-08 16:56 | P.PNIM_ITS ---
Subjective Subjective Date of Service: 10/09/20 Interval History: Acute hypoxemic respiratory failure related to COVID Review of Systems Patient is intermittent awake, does not answer any questions Physical Exam Vital Signs: Vital Signs: Last Vital Signs Temp 97 F 10/08/20 15:24 Pulse 65 10/08/20 15:24 Resp 19 10/08/20 15:24 BP 144/70 H 10/08/20 15:24 Pulse Ox 95 10/08/20 15:24 Body Mass Index 21.9 Physical exam: Constitutional: Only open eyes, restlessness Cvs: rrr, [id number] , no murmur res: Air entry diminished at bases abd: Soft, nondistended, bowel sounds are present, with deep palpation does not have impression of pain including grimaces or any facial impression. ext pulses present , no cyanosis Objective Data Current Medications Generic Name Dose Route Start Last Admin Trade Name Freq PRN Reason Stop Dose Admin Acetaminophen 650 mg 09/30/20 15:19 Acetaminophen 325 Mg Tablet PO Q6H PRN Pain, Mild (Pain Scale 1-3) Benzocaine 1 lozenge 10/01/20 11:45 Throat Lozenge, Medicated Lozenge MUCOUS MEM Q2H PRN Sore Throat Enoxaparin Sodium 35 mg 10/08/20 12:00 10/08/20 14:58 Enoxaparin Sodium 60 Mg/0.6 Ml Syringe SUBCUT 35 mg Q12H JEROD Administration Famotidine 20 mg 10/07/20 21:00 10/08/20 07:58 Famotidine/Pf 20 Mg/2 Ml Vial IVPUSH 20 mg BID JEROD Administration Potassium Chloride 20 meq/ 1,560 mls @ 65 mls/hr 10/07/20 18:00 10/08/20 01:02 Sodium Chloride 20 meq/ IVCONT 10/08/20 17:59 Not Given Magnesium Sulfate 10 meq/ DAILY@1800 JEROD Potassium Phosphate 30 mmol/ Calcium Gluconate 9.3 meq/ Multivitamins 12.8 ml/ Trace Metals 1.3 ml/ Amino Acids/ Electrolytes/Dextrose Thiamine HCl 200 mg/ Sodium 102 mls @ 204 mls/hr 10/07/20 16:45 10/08/20 16:30 Chloride IV 204 mls/hr Q12H JEROD Administration Dextrose 1,000 mls @ 150 mls/hr 10/08/20 05:15 10/08/20 16:33 D5w IVCONT 150 mls/hr .Q6H40M JEROD Administration Doxycycline Hyclate 100 mg/ 250 mls @ 166.67 mls/hr 10/09/20 05:00 Sodium Chloride IV Q12H JEROD Insulin Glargine 20 unit 10/07/20 21:00 10/08/20 07:58 Insulin Glargine,Hum.Rec.Anlog 100 Unit/Ml 10 Ml Vial SUBCUT 20 unit BID JEROD Administration Insulin Human Lispro 0 unit 09/30/20 21:00 10/08/20 16:30 Insulin Lispro 100 Unit/Ml 3 Ml Vial SUBCUT 2 unit QIDACHS [facility] Administration Protocol Lidocaine/Diphenhydr/Alum/Mg/Simeth 10 ml 09/30/20 18:15 10/08/20 14:18 Mag&Al/Sim/Diphenhyd/Lidocaine 10 Ml Oral.Susp PO Not Given Q6H [facility] Protocol Methylprednisolone Sodium Succinate 40 mg 10/07/20 17:00 10/08/20 16:31 Methylprednisolone Sod Succ/Pf 40 Mg/Ml Vial IVPUSH 40 mg Q12H JEROD Administration Ondansetron HCl 4 mg 09/30/20 15:19 Ondansetron Hcl 4 Mg/2 Ml Vial IVPUSH Q8H PRN Nausea and Vomiting Pantoprazole Sodium 40 mg 10/06/20 06:30 10/08/20 06:18 Pantoprazole Sodium 40 Mg/10 Ml Vial IVPUSH 40 mg DAILY@0630 [facility] Administration Pharmacy Consult 1 each 09/30/20 11:28 Consult Rx Perform Med Rec MISCELLANE ONCE PRN Consult order Sertraline HCl 100 mg 10/01/20 09:00 10/08/20 08:00 Sertraline Hcl 100 Mg Tablet PO Not Given DAILY [facility] Sodium Chloride 3 ml 09/30/20 16:00 10/08/20 14:59 0.9 % Sodium Chloride Flush 3 Ml Syringe IVFLUSH 3 ml QSHIFT [facility] Administration Tamsulosin HCl 0.4 mg 09/30/20 17:00 10/08/20 16:31 Tamsulosin Hcl 0.4 Mg Capsule PO Not Given DAILY@1700 [facility] Trazodone HCl 25 mg 10/02/20 22:11 10/02/20 22:28 Trazodone Hcl 25 Mg Halftab PO 25 mg BEDTIME PRN Administration Insomnia Labs CBC & Chem 7: 10/09/20 09:16 10/09/20 06:03 Microbiology Microbiology Results: Microbiology 09/30/20 10:48 Blood - Venous Blood Culture - Final No growth after 5 days. 09/30/20 10:39 Blood - Venous Blood Culture - Final No growth after 5 days. Assessment and Plan (1) Encephalopathy: Problem details: ? encephalitis due to covid. Status: Acute (2) Acute respiratory failure with hypoxia: Problem details: severe with extensive GGO Status: Acute (3) COVID-19: Status: Acute Assessment and Plan: 80/m with HTN, HLD, history of colon cancer, depression here with 1. Sepsis due to COVID-19/pneumonia/ metabolic toxic encephalopathy. Awake intermittent No fevers Leukocytosis is trending down slowly Tachycardia and tachypnea still intermittent. Initially patient chest x-ray has by better patches disease and subsequently was started on IV antibiotic initially-IV doxycycline and Zosyn, also was on p.o. dexamethasone: Subsequently shortness of breath progressively worsening and CTA shows progressive disease. Patient was seen by Pulmonary, id, ICU: Recommended to continue oxygen and high-flow currently, also dexamethasone was switched to IV dexamethasone, Id flores:He is in inflammatory phase of COVID,day 6 at least post diagnosis He never had acute viral phase with early oxygen need where Remdesivir may benefit although data shows doesnt improve mortality or less progression to intubation. In addition patient also received trial of IV Lasix chance to give the benefit of doubt of any question of chf. And still was short of breath and hypoxic-on 100% oxygen. Id recommended to continue doxycycline for now, blood culture at 5 days negative. Discussed with ICU today: Please try to taper oxygen if possible, in addition iv solumedrol, also added famotidine, thiamine, magnesium. ICU recommended-if patient still desaturate on 100% oxygen then we need to get an ABG and calling back ICU. Will also add CRP, ferritin, D-dimer : elevated - add lovenox and convalsent plasma added by Pulmonary follow-up labs for COVID in morning. 2. Acute toxic encephalopathy. Thought to be multifactorial: Related to sepsis , COVID-19 infection, hyponatremia. Hold off benzodiazepine for agitation Spoke to the nursing alum plant supervisor possibility of sitter Agitation flores ICU recommended: Seroquel or risperadal or Haldol may be helpful in this patient last resort. will continue to moniter hyponatremia: Discussed with Nephrology and switched D5W to 150 mL/hour-monitor sodium 3 pm 148, discussed with Nephro -will decrease D5W to 100 mL/hour, and monitor sodium closely 3. metabolic acidosis/hypernatremia: Discussed with the Pulmonary and Nephro: Metabolic acidosis flores yesterday pH is 7.5, bicarb is 13 Thought to be metabolic earlier acidosis related to since patient have poor oral intake /Ftt, hypoxia . nephro recomended -start d5w 80 ml/hr . hypernatremia flores : moniter bmp around 10 pm has one episode of diarrahe 2 days back. 4. History of hypertension: blood pressure seems currently stable , admission was hypotensive, received 4 L of IV fluid as per chart review, current blood pressure is stable will continue to hold home medications including hydrochlorothiazide and losartan. 5. Diabetes mellitus with elevated blood sugar, likely related to dexamethasone/ppn: fs running 120-220 not taking po, Yesterday ph 7.53 Bicarb seems to be improving adjusted insulin sliding scale, added Lantus ,moniter fs closely hold metformin and dulaglutide that he takes at home 6. initially Neutropenic fever likely related to COVID-19 infection as well chemotherapy. WBC improved to 2.6 -received granix . received 2 days on granix 300mcg sc daily . above discussed with ICU, pulm , ID and nephro in detail. Above management discussed with patient's centrifugal casting machine operator Mario Joshi, phone #[phone], Ranjan and patient :patient is full code. Also family was told in detail that prognosis is very poor and patient is very high mortality risk. In addition patient was discussed with the family: Family was patient was requiring assistance with ADLs out patiently even before admission, also having minimum p.o. intake from last 2-3 weeks and progressively declining.
[2020-10-08 17:40] LABS: Alanine Aminotransferase 14 U/L (0-40); Albumin Level 2.2 g/dL (3.5-5.0); Alkaline Phosphatase 175 U/L (39-117); Aspartate Amino Transferase 35 U/L (5-37); Bilirubin Direct 0.2 mg/dL (0.0-0.5); Bilirubin Total 0.5 mg/dL (0.0-1.0); Total Protein 4.9 g/dL (6.5-8.0)
[2020-10-08 18:48] LABS: Glucose, Whole Blood 200 mg/dL (60-115)
[2020-10-08 19:58] LABS: C Reactive Protein 8.48 mg/dL (< or = 0.50)
[2020-10-08 21:19] LABS: Ferritin 3531 ng/mL (20-250)
[2020-10-08 21:39] LABS: Glucose, Whole Blood 222 mg/dL (60-115)
[2020-10-08 22:29] LABS: Sodium 145 mmol/L (135-145)
[2020-10-08 22:57] LABS: D Dimer 2927 NG/ML
[2020-10-09] VITALS (32 sets, daily range): BP systolic 101–162; BP diastolic 50–90; PULSE 66–118; RESP 18–24; TEMP 36.6–36.8; O2SAT 90–99
[2020-10-09] MEDS: Enoxaparin Sodium 60 MG/0.6 ML SYRINGE 35 MG SUBCUT ×3 (00:48→23:28)
[2020-10-09] MEDS: 0.9 % Sodium Chloride Flush 3 ML SYRINGE IVFLUSH ×4 (00:49→23:29)
[2020-10-09] MEDS: Haloperidol Lactate 5 MG/ML VIAL 1 MG IVPUSH ×3 (01:00→18:27)
[2020-10-09] MEDS: Dextrose 5 % 1,000 ML 100 ML IVCONT (02:57)
--- NOTE | 2020-10-09 03:43 | PC.NURSE ---
Pt had been pulling his high flow N/C out of his nose all evening, causing O2 sats to decrease to low 80's. Pt confused and uncooperative and will not listen to instructions. Pt hitting staff at times when attempting to reapply O2. Initially given Haldol one time order to see if this would help restlessness but it did not. Pt still pulling at N/C. Per Dr Caputo, order given for soft restraints to be applied to bilateral wrists. Once wrist resptrraints applied, O2 level increased slightly, but had to apply NRB as well due to decreasing sats. Will continue to monitor, safety measures in place.
[2020-10-09] MEDS: Thiamine HCL 200 MG in 0.9 % Sodium Chloride 100 ML 204 MG IV ×2 (04:36→17:41)
[2020-10-09] MEDS: Pantoprazole Sodium 40 MG/10 ML VIAL IVPUSH (05:28)
[2020-10-09] MEDS: Doxycycline Hyclate 100 MG in 0.9 % Sodium Chloride 250 ML 166.67 MG IV ×2 (05:31→18:27)
[2020-10-09 06:21] LABS: Glucose, Whole Blood 112 mg/dL (60-115)
[2020-10-09 07:27] LABS: Anion Gap 17 (12-20); Blood Urea Nitrogen 16 mg/dL (9-16); Carbon Dioxide 21 mmol/L (22-29); Chloride 111 mmol/L (96-108); Creatinine Clr Calc Pharmacy 94.6; Estimated Glomerular Filt Rate > 60; Glucose Random 102 mg/dL (60-115); Potassium 3.1 mmol/l (3.3-5.1); Sodium 146 mmol/L (135-145)
[2020-10-09 07:40] LABS: Magnesium 1.9 mg/dL (1.6-2.6)
[2020-10-09 07:55] LABS: Glucose, Whole Blood 93 mg/dL (60-115)
[2020-10-09] MEDS: Potassium Chloride/H20 10 MEQ/100 ML PIGGYBACK 100 MEQ IV ×2 (09:19→10:38)
[2020-10-09] MEDS: Famotidine/PF 20 MG/2 ML VIAL IVPUSH ×2 (09:19→20:42)
[2020-10-09 09:27] LABS: C Reactive Protein 7.69 mg/dL (< or = 0.50)
[2020-10-09 09:50] LABS: Hematocrit 29.6 % (42-52); Mean Corpuscular HGB Conc 33.8 g/dl (31.0-36.0); Mean Corpuscular Hemoglobin 30.6 pg (27.0-33.0); Mean Corpuscular Volume 90.5 fL (80-98); Mean Platelet Volume 10.9 fL (9.4-12.4); NRBC Pct Auto 0.6 /100WBC (0.0-0.2); Red Blood Count 3.27 X10*6/uL (4.60-5.80); Red Cell Distribution Width 15.9 % (11.0-16.0); White Blood Count 22.7 X10*3/uL (4.8-10.8)
[2020-10-09 09:57] LABS: INTERNATIONAL NORM RATIO 1.2 (0.9-1.1); Prothrombin Time 14.3 SEC (10.8-13.0)
[2020-10-09 10:00] LABS: Platelet Count 94 X10*3/uL (160-400)
[2020-10-09 11:04] LABS: Ferritin 2364 ng/mL (20-250)
[2020-10-09 11:28] LABS: Glucose, Whole Blood 69 mg/dL (60-115)
[2020-10-09 11:46] LABS: Phosphorus 2.3 mg/dL (2.7-4.5)
[2020-10-09 11:55] LABS: Alanine Aminotransferase 13 U/L (0-40); Albumin Level 2.1 g/dL (3.5-5.0); Alkaline Phosphatase 181 U/L (39-117); Aspartate Amino Transferase 45 U/L (5-37); Bilirubin Direct 0.2 mg/dL (0.0-0.5); Bilirubin Total 0.5 mg/dL (0.0-1.0); Total Protein 5.2 g/dL (6.5-8.0)
[2020-10-09 11:59] LABS: D Dimer 2143 NG/ML
--- NOTE | 2020-10-09 12:07 | MHC.CLN ---
F/U PICC LINE PLACEMENT UNSUCCESSFUL IF PPN TO START; RECOMMEND PPN D10 AA4.25% AT 65CC/HR TO PROVIDE 796KCALS, 66G PROTEIN (.95G/KG) INCREASE PPN TOMORROW (10/10) TO 85CC/HR TO PROVIDE 1040KCALS, 87G PROTEIN (1.3G/KG) REPLETE LYTES NEEDED FOLLOWING
[2020-10-09 12:13] LABS: ABG PCO2 30 mmhg (32-45); Base Excess ABG 1.1; Blood Gas Serial # 5396; HCO3 ABG 24 mmol/l (22-26); Oxygen Saturation ABG 98.2 %; PO2 ABG 120 mmhg (83-108); pH ABG 7.51 (7.35-7.45)
[2020-10-09] MEDS: Calcium Gluconate/NaCl,Iso-Osm 1 GM/50 ML PLAST..BAG IV (13:18)
[2020-10-09 13:29] LABS: Glucose, Whole Blood 134 mg/dL (60-115)
--- NOTE | 2020-10-09 14:21 | PM.EVENT ---
Event Note Date of Service: 10/09/20 Event Note: I?m following Mr. Barboza at the request of Dr. Zaragoza. The patient is on IMC with hypoxemic respiratory failure 2? COVID pneumonia, with altered mental status. See my extended note from Oct 07. I just saw the patient up on IMC. The patient's mental status is still altered. He was lying flat in bed, breathing easy, with a respiratory rate of 22-24. No access musc use or increase in WOB, other than attributable to his RR. He?s wearing his HFNC 60L/100%, with SpO2 98% according to the nurse. The problem is he keeps taking the HFNC off. The patient is afebrile. COVID BIOMARKERS: D-dimer is down to 2143. Ferritin is down to 2360. CRP down to 7. BUN/creatinine 16/0.6. ABG showed pCO2 of 30, pO2 up to 120 (presumably on the HFNC 100%). IMPRESSION: 1. Acute hypoxemic respiratory failure in a 80-year-old very high risk gentleman due to typical progression of COVID 19 pneumonia. 2. Altered mental status. From what Dr. Zaragoza tells me, the family indicates that the patient?s baseline mental status is more or less normal. I.e. his current mental status is definitely delirium (toxic/metabolic encephalopathy). Recommend the followin. The family should be informed of his very high mortality risk. 2. The patient needs a sitter, if for no other reason than to make sure that he doesn?t remove his suppl oxygen device, unless his delirium can be controlled. 3. Ativan should generally be avoided in patients older than 70. However, the patient?s nurse told me that the pt was given Ativan previously with good effect. Therefore, I?m comfortable with trying that again. Alternatively try Haldol or Zyprexa ODT if pharmacologic restraint is needed. 4. The patient (any patient on 100% HFNC) needs IV access that is 100% secure, and preferably central access so blood gasses can be drawn at the drop of a hat to measure pCO2. 5. This patient needs more than just dexamethasone 6mg daily treatment for COVID 19. See my original note for my additional recommendations. 6. I do not see a clear need here for antibacterial antibiotics, especially given his lack of fever and near normal procalcitonin. Doxycycline is probably OK though. Might have some benefit. 7. Given his D-dimer, I recommend half dose Lovenox (i.e. 0.5 mg/kg bid). 8. Given his severe hypoxemia and markedly elevated Ferritin, suggest steroid dosing w solumedrol 80 mg bid. 9. Keep Mg level betw 2-2.4. Continue the following daily monitoring: Daily VBG, DDimer, CRP, Ferritin, procalcitonin, and Mg with his usual morning labs. (Does not need to be stuck for ABGs, just get a daily VBG as part of his routine daily lab draw.) I will follow the patient daily. Time: 30 min. ([id number])
[2020-10-09 17:08] LABS: Glucose, Whole Blood 69 mg/dL (60-115)
--- NOTE | 2020-10-09 17:20 | HO.PM.IMPN ---
Subjective Subjective Date of Service: 10/09/20 Interval History: Acute hypoxemic respiratory failure secondary to COVID. Review of Systems Patient is awake, still intermittently restless, shortness of breath seems similar before. No episode of fever or diarrhea as per staff. Physical Exam Vital Signs: Vital Signs: Last Vital Signs Temp 97.8 F 10/09/20 12:09 Pulse 87 10/09/20 12:09 Resp 24 H 10/09/20 16:34 BP 162/66 H 10/09/20 12:09 Pulse Ox 95 10/09/20 03:44 Body Mass Index 21.9 Physical exam: Cvs: rrr, [id number] , no murmur res: Grossly air entry diminished at bases, no rales or rhonchi. abd: soft , bs present , no signs of gramces or pain with palpation. ext pulses present , no cyanosis , no edema neuro: moves ext , restlessness. Objective Data Current Medications Generic Name Dose Route Start Last Admin Trade Name Freq PRN Reason Stop Dose Admin Acetaminophen 650 mg 09/30/20 15:19 Acetaminophen 325 Mg Tablet PO Q6H PRN Pain, Mild (Pain Scale 1-3) Benzocaine 1 lozenge 10/01/20 11:45 Throat Lozenge, Medicated Lozenge MUCOUS MEM Q2H PRN Sore Throat Dextrose 25 gm 10/09/20 17:10 Dextrose 50 % 25 Gm/50 Ml Vial IVPUSH ONCE PRN BS < 100 Enoxaparin Sodium 35 mg 10/08/20 12:00 10/09/20 12:31 Enoxaparin Sodium 60 Mg/0.6 Ml Syringe SUBCUT 35 mg Q12H JEROD Administration Famotidine 20 mg 10/07/20 21:00 10/09/20 09:19 Famotidine/Pf 20 Mg/2 Ml Vial IVPUSH 20 mg BID JEROD Administration Thiamine HCl 200 mg/ Sodium 102 mls @ 204 mls/hr 10/07/20 16:45 10/09/20 05:16 Chloride IV Infused Q12H JEROD Infusion Doxycycline Hyclate 100 mg/ 250 mls @ 166.67 mls/hr 10/09/20 05:00 10/09/20 07:22 Sodium Chloride IV Infused Q12H JEROD Infusion Potassium Chloride 20 meq/ 1,621.6 mls @ 65 mls/hr 10/09/20 18:00 Sodium Chloride 20 meq/ IVCONT Magnesium Sulfate 10 meq/ DAILY@1800 [facility] Potassium Phosphate 30 mmol/ Calcium Gluconate 9.3 meq/ Multivitamins 12.8 ml/ Trace Metals 1.3 ml/ Amino Acids/ Electrolytes/Dextrose Insulin Human Lispro 0 unit 09/30/20 21:00 10/09/20 12:41 Insulin Lispro 100 Unit/Ml 3 Ml Vial SUBCUT Not Given QIDACHS [facility] Protocol Lidocaine/Diphenhydr/Alum/Mg/Simeth 10 ml 09/30/20 18:15 10/09/20 12:41 Mag&Al/Sim/Diphenhyd/Lidocaine 10 Ml Oral.Susp PO Not Given Q6H [facility] Protocol Methylprednisolone Sodium Succinate 40 mg 10/07/20 17:00 10/09/20 05:26 Methylprednisolone Sod Succ/Pf 40 Mg/Ml Vial IVPUSH 40 mg Q12H JEROD Administration Ondansetron HCl 4 mg 09/30/20 15:19 Ondansetron Hcl 4 Mg/2 Ml Vial IVPUSH Q8H PRN Nausea and Vomiting Pharmacy Consult 1 each 09/30/20 11:28 Consult Rx Perform Med Rec MISCELLANE ONCE PRN Consult order Sodium Chloride 3 ml 09/30/20 16:00 10/09/20 14:59 0.9 % Sodium Chloride Flush 3 Ml Syringe IVFLUSH 3 ml QSHIFT JEROD Administration Trazodone HCl 25 mg 10/02/20 22:11 10/02/20 22:28 Trazodone Hcl 25 Mg Halftab PO 25 mg BEDTIME PRN Administration Insomnia Labs CBC & Chem 7: 10/09/20 09:16 10/09/20 06:03 Microbiology Microbiology Results: Microbiology 09/30/20 10:48 Blood - Venous Blood Culture - Final No growth after 5 days. 09/30/20 10:39 Blood - Venous Blood Culture - Final No growth after 5 days. Assessment and Plan (1) Encephalopathy: Problem details: ? encephalitis due to covid. Status: Acute (2) Hypernatremia: Status: Acute (3) Sepsis: Status: Acute (4) Pneumonia: Status: Acute Assessment and Plan: 80/m with HTN, HLD, history of colon cancer, depression here with 1. Sepsis due to COVID-19/pneumonia/ metabolic toxic encephalopathy. Awake intermittent No fevers Leukocytosis is trending down slowly Tachycardia and tachypnea still intermittent. Initially patient chest x-ray has by better patches disease and subsequently was started on IV antibiotic initially-IV doxycycline and Zosyn, also was on p.o. dexamethasone: Subsequently shortness of breath progressively worsening and CTA shows progressive disease. Patient was seen by Pulmonary, id, ICU: Recommended to continue oxygen and high-flow currently, also dexamethasone was switched to IV dexamethasone, Id flores:He is in inflammatory phase of COVID,day 6 at least post diagnosis He never had acute viral phase with early oxygen need where Remdesivir may benefit although data shows doesnt improve mortality or less progression to intubation. In addition patient also received trial of IV Lasix chance to give the benefit of doubt of any question of chf. And still was short of breath and hypoxic-on 100% oxygen. Id recommended to continue doxycycline for now, blood culture at 5 days negative. Discussed with ICU and Pulmonary: Consent form was filled by the family over the phone Mr. natalia macario: For plasma convulsant As per ICU recommendation patient is on IV Solu-Medrol 40mg q.12h, IV famotidine, IV thiamine, also on Lovenox as per D-dimer. 2. Acute toxic encephalopathy. Thought to be multifactorial: Related to sepsis, COVID-19 infection, hyponatremia. Discussed with ICU and as well as the staff: Will try to use Haldol, if needed then Zyprexa ODT, Seroquel or risperadal or Haldol may be helpful in this patient last resort. Also discussed if needed we may need sitter also. will continue to moniter hyponatremia: Improved to 146 range with D5W: Discussed with Dr. Cortez this morning recommended to switch him to PPN and will monitor the sodium in the morning. 3. metabolic acidosis/hypernatremia: Discussed with the Pulmonary and Nephro: Metabolic acidosis flores yesterday pH is 7.5, bicarb is 13 Thought to be metabolic earlier acidosis related to since patient have poor oral intake /Ftt, hypoxia . No diarrhea as per staff. 4. History of hypertension: blood pressure seems currently stable , on admission was hypotensive, received 4 L of IV fluid as per chart review, current blood pressure is stable will continue to hold home medications including hydrochlorothiazide and losartan. 5. Diabetes mellitus with elevated blood sugar: Fingersticks are running in intermittently in 70 range Lantus stopped P.r.n. dextrose added Monitor fingersticks for next 3-6 hour Q hourly, no coverage below 200 mg per dL, only start coverage if patient is consistently fingerstick was above 200 mg/dL hold metformin and dulaglutide that he takes at home 6. initially Neutropenic fever likely related to COVID-19 infection as well chemotherapy. WBC improved to 2.6 -received granix . received 2 days on granix 300mcg sc daily . above discussed with ICU, pulm , ID and nephro in detail. Above management discussed with patient's sports umpire Mario Joshi, phone #[phone], Ranjan and patient :patient is full code. Also family was told in detail that prognosis is very poor and patient is very high mortality risk. In addition patient was discussed with the family: Family was patient was requiring assistance with ADLs out patiently even before admission, also having minimum p.o. intake from last 2-3 weeks and progressively declining. Patient's sports umpire as above again updated today
[2020-10-09 17:35] LABS: Glucose, Whole Blood 75 mg/dL (60-115)
[2020-10-09 18:02] LABS: Glucose, Whole Blood 168 mg/dL (60-115)
[2020-10-09 18:56] LABS: Basophils Absolute Auto 0.1 X10*3/uL (0.0-0.2); Basophils Percent Auto 0.2 % (0-2); Hematocrit 30.2 % (42-52); Hemoglobin 9.9 g/dl (14.0-18.0); Imm Gran Abs Auto 0.76 X10*3/uL (0.00-0.03); Imm Gran Pct Auto 3.7 % (0.0-0.4); Lymphocytes Absolute Auto 1.3 X10*3/uL (1.2-4.9); Lymphocytes Percent Auto 6.3 % (20-40); Mean Corpuscular HGB Conc 32.8 g/dl (31.0-36.0); Mean Corpuscular Hemoglobin 30.6 pg (27.0-33.0); Mean Corpuscular Volume 93.2 fL (80-98); Mean Platelet Volume 11.5 fL (9.4-12.4); Monocytes Absolute Auto 0.4 X10*3/uL (0.1-1.2); Monocytes Percent Auto 1.8 % (2-11); NRBC Pct Auto 0.5 /100WBC (0.0-0.2); Neutrophils Absolute Auto 18.3 X10*3/uL (2.0-8.3); Red Blood Count 3.24 X10*6/uL (4.60-5.80); White Blood Count 20.8 X10*3/uL (4.8-10.8)
[2020-10-09 18:57] LABS: MANUAL DIFF FLAG NO
--- NOTE | 2020-10-09 18:59 | PM.PNNEP ---
Subjective Subjective Date of Service: 10/09/20 Interval history: Seen and examiend.events noted Physical Exam Vital Signs: Vital Signs: Last Vital Signs Temp 97.8 F 10/09/20 12:09 Pulse 74 10/09/20 16:00 Resp 24 H 10/09/20 16:34 BP 162/66 H 10/09/20 12:09 Pulse Ox 97 10/09/20 16:00 Body Mass Index 21.9 Const: General: ill appearing HENMT: Head: Yes normocephalic and Yes atraumatic Neck: Neck: Yes supple Resp: Auscultation: diminished lung sounds Cardio: Rate: tachycardic Heart sounds: S1 normal heart sound present and S2 normal heart sound present GI: Palpation (GI): Soft to palpation and no guarding Extrem: General: Yes no pedal edema Assessment & Plan Assessment and plan (1) High anion gap metabolic acidosis: Status: Acute (2) Hypernatremia: Status: Acute (3) Hypokalemia: Status: Acute (4) COVID-19: Status: Acute Assessment and Plan: HyperNa: improved with iVf NAGMA: reoslving COVID Resp Failure REC: track SNa with PPN will sign off call PRN Time Spent With Patient Time: Total time spent is greater than 50% in coordination of care (as documented) at patient's floor/unit and/or counseling patient:
[2020-10-09 19:00] LABS: Glucose, Whole Blood 98 mg/dL (60-115)
[2020-10-09 19:09] LABS: Platelet Count 98 X10*3/uL (160-400)
[2020-10-09 20:10] LABS: Glucose, Whole Blood 81 mg/dL (60-115)
[2020-10-09 22:46] LABS: Glucose, Whole Blood 112 mg/dL (60-115)
[2020-10-10] VITALS (11 sets, daily range): BP systolic 111–139; BP diastolic 49–68; PULSE 71–122; RESP 18–20; TEMP 36.1–36.9; O2SAT 91–99
[2020-10-10] MEDS: Thiamine HCL 200 MG in 0.9 % Sodium Chloride 100 ML 204 MG IV ×2 (04:02→17:10)
[2020-10-10 04:25] LABS: Glucose, Whole Blood 168 mg/dL (60-115)
[2020-10-10] MEDS: Doxycycline Hyclate 100 MG in 0.9 % Sodium Chloride 250 ML 166.67 MG IV ×2 (04:29→17:51)
[2020-10-10 06:24] LABS: Hematocrit 27.3 % (42-52); Hemoglobin 9.2 g/dl (14.0-18.0); Mean Corpuscular HGB Conc 33.7 g/dl (31.0-36.0); Mean Corpuscular Hemoglobin 30.9 pg (27.0-33.0); Mean Corpuscular Volume 91.6 fL (80-98); Mean Platelet Volume 11.5 fL (9.4-12.4); NRBC Pct Auto 0.4 /100WBC (0.0-0.2); Red Blood Count 2.98 X10*6/uL (4.60-5.80); Red Cell Distribution Width 15.9 % (11.0-16.0); White Blood Count 19.3 X10*3/uL (4.8-10.8)
[2020-10-10 06:36] LABS: Platelet Count 91 X10*3/uL (160-400)
[2020-10-10 07:12] LABS: Anion Gap 13 (12-20); Blood Urea Nitrogen 16 mg/dL (9-16); Calcium 6.7 mg/dL (8.4-10.2); Carbon Dioxide 26 mmol/L (22-29); Chloride 108 mmol/L (96-108); Creatinine Clr Calc Pharmacy 104.8; Estimated Glomerular Filt Rate > 60; Glucose Random 158 mg/dL (60-115); Potassium 2.9 mmol/l (3.3-5.1); Sodium 144 mmol/L (135-145)
[2020-10-10 07:16] LABS: Glucose, Whole Blood 183 mg/dL (60-115)
[2020-10-10 07:23] LABS: D Dimer 2450 NG/ML
[2020-10-10] MEDS: 0.9 % Sodium Chloride Flush 3 ML SYRINGE IVFLUSH ×2 (08:36→17:10)
[2020-10-10] MEDS: Calcium Gluconate/NaCl,Iso-Osm 1 GM/50 ML PLAST..BAG IV (08:36)
[2020-10-10 09:13] LABS: Albumin Level 2.1 g/dL (3.5-5.0); Magnesium 1.7 mg/dL (1.6-2.6); Phosphorus 2.2 mg/dL (2.7-4.5)
[2020-10-10] MEDS: Famotidine/PF 20 MG/2 ML VIAL IVPUSH ×2 (09:58→20:19)
[2020-10-10] MEDS: Magnesium Sulfate/D5W 1 GM/100 ML PIGGYBACK IV (09:58)
[2020-10-10] MEDS: Potassium Chloride/H20 10 MEQ/100 ML PIGGYBACK 100 MEQ IV ×4 (09:58→13:28)
[2020-10-10 10:00] LABS: Estimated Average Glucose 229 mg/dL; Hemoglobin A1c % 9.6 %
[2020-10-10 11:10] LABS: Glucose, Whole Blood 223 mg/dL (60-115)
--- NOTE | 2020-10-10 12:05 | MHC.CLN ---
[facility] REPORTS ACCESS TO PORT FOR TPN RECOMMEND D15AA5% AT 65CC/HR TO PROVIDE 1108KCALS, 78G PROTEIN (1.1G/KG) DISCUSSED WITH PHARMACY REPLETE LYTES, MONITOR MG, PHOS AND K+ CLOSELY DIET RX: NPO PT REFUSING ALL PO AT THIS TIME FOLLOWING
[2020-10-10] MEDS: Enoxaparin Sodium 60 MG/0.6 ML SYRINGE 35 MG SUBCUT ×2 (12:15→23:29)
--- NOTE | 2020-10-10 15:04 | PM.EVENT ---
Event Note Date of Service: 10/10/20 Event Note: I?m following Mr. Barboza at the request of Dr. Zaragoza. The patient is on IMC with hypoxemic respiratory failure 2? COVID pneumonia, with altered mental status. See my extended note from Oct 07. I?ve seen the patient up on IMC every day since Oct 07. He?s been strikingly delirious every day since then. Today, his mental status is just about completely normal, as far as I can tell (I don?t speak [place]) -- as if a miracle happened. Dr. Zaragoza tells me he gave the patient no special medication or other treatment, other than withholding all RESIDENT SERVICES DIRECTOR meds. He?s lying flat in bed and his respiratory rate and breathing is completely normal. Via the [employer] grounds, he is asking for food and drink. He is 100% purposefully interactive. On the high-flow nasal cannula 40 L/100%, sat is 89%. COVID BIOMARKERS: D-dimer 2450. IMPRESSION: 1. Acute hypoxemic respiratory failure in a 80-year-old very high risk gentleman due to typical progression of COVID 19 pneumonia. Breathing is better today, SpO2 more or less the same. Hopefully this heralds recovery. 2. Delirium. Resolved. Not clear why. Hopefully this too is a sign of recovery. Recommend continuing daily DDimer, Ferritin, and CRP, and continue the bid Lovenox, solumedrol, and Pepcid, until FiO2 comes down. I will follow the patient daily. Time: 30092
[2020-10-10 15:29] LABS: Glucose, Whole Blood 282 mg/dL (60-115)
--- NOTE | 2020-10-10 15:59 | P.PNIM_ITS ---
Subjective Subjective Date of Service: 10/10/20 Interval History: Acute hypoxemic respiratory failure probably to COVID infection, poor oral intake. Review of Systems Patient seems to be more awake today could able to say his name. Says now pain managed press in the belly. Says breathing is slightly improving Physical Exam Vital Signs: Vital Signs: Last Vital Signs Temp 97.2 F 10/10/20 15:21 Pulse 79 10/10/20 15:21 Resp 20 10/10/20 15:23 BP 124/65 10/10/20 15:21 Pulse Ox 95 10/10/20 15:21 Body Mass Index 21.9 Physical exam: HEENT: Eyes are anicteric no discharge. Cvs: rrr, [id number] , no murmur res:diminshed breath sounds at bases , no rales . abd: no rebound or guarding ,nt, bs present. ext pulses present , no cyanosis neuro: axo3 , nonfocal. Objective Data Current Medications Generic Name Dose Route Start Last Admin Trade Name Freq PRN Reason Stop Dose Admin Acetaminophen 650 mg 09/30/20 15:19 Acetaminophen 325 Mg Tablet PO Q6H PRN Pain, Mild (Pain Scale 1-3) Benzocaine 1 lozenge 10/01/20 11:45 Throat Lozenge, Medicated Lozenge MUCOUS MEM Q2H PRN Sore Throat Dextrose 25 gm 10/09/20 17:10 Dextrose 50 % 25 Gm/50 Ml Vial IVPUSH ONCE PRN BS < 100 Enoxaparin Sodium 35 mg 10/08/20 12:00 10/10/20 12:15 Enoxaparin Sodium 60 Mg/0.6 Ml Syringe SUBCUT 35 mg Q12H JEROD Administration Famotidine 20 mg 10/07/20 21:00 10/10/20 09:58 Famotidine/Pf 20 Mg/2 Ml Vial IVPUSH 20 mg BID JEROD Administration Thiamine HCl 200 mg/ Sodium 102 mls @ 204 mls/hr 10/07/20 16:45 10/10/20 06:3 4 Chloride IV Infused Q12H JEROD Infusion Doxycycline Hyclate 100 mg/ 250 mls @ 166.67 mls/hr 10/09/20 05:00 10/10/20 06:34 Sodium Chloride IV Infused Q12H JEROD Infusion Potassium Chloride 20 meq/ 1,621.6 mls @ 65 mls/hr 10/09/20 18:00 10/09/20 21:27 Sodium Chloride 20 meq/ IVCONT 10/10/20 17:59 65 mls/hr Magnesium Sulfate 10 meq/ DAILY@1800 [facility] Infusion Potassium Phosphate 30 mmol/ Calcium Gluconate 9.3 meq/ Multivitamins 12.8 ml/ Trace Metals 1.3 ml/ Amino Acids/ Electrolytes/Dextrose Potassium Chloride 20 meq/ 1,560 mls @ 65 mls/hr 10/10/20 18:00 Sodium Chloride 20 meq/ IVCONT 10/11/20 17:59 Magnesium Sulfate 16 meq/ DAILY@1800 JEROD Potassium Phosphate 40 mmol/ Calcium Gluconate 9.3 meq/ Multivitamins 12.8 ml/ Trace Metals 1.3 ml/ Amino Acids/ Dextrose Insulin Human Lispro 0 unit 09/30/20 21:00 10/10/20 12:14 Insulin Lispro 100 Unit/Ml 3 Ml Vial SUBCUT Not Given QIDACHS [facility] Protocol Lidocaine/Diphenhydr/Alum/Mg/Simeth 10 ml 09/30/20 18:15 10/10/20 13:23 Mag&Al/Sim/Diphenhyd/Lidocaine 10 Ml Oral.Susp PO Not Given Q6H [facility] Protocol Methylprednisolone Sodium Succinate 40 mg 10/07/20 17:00 10/10/20 04:29 Methylprednisolone Sod Succ/Pf 40 Mg/Ml Vial IVPUSH 40 mg Q12H JEROD Administration Ondansetron HCl 4 mg 09/30/20 15:19 Ondansetron Hcl 4 Mg/2 Ml Vial IVPUSH Q8H PRN Nausea and Vomiting Pharmacy Consult 1 each 09/30/20 11:28 Consult Rx Perform Med Rec MISCELLANE ONCE PRN Consult order Sodium Chloride 3 ml 09/30/20 16:00 10/10/20 08:36 0.9 % Sodium Chloride Flush 3 Ml Syringe IVFLUSH 3 ml QSHIFT [facility] Administration Trazodone HCl 25 mg 10/02/20 22:11 10/02/20 22:28 Trazodone Hcl 25 Mg Halftab PO 25 mg BEDTIME PRN Administration Insomnia Labs CBC & Chem 7: 10/10/20 05:56 10/10/20 05:56 Microbiology Microbiology Results: Microbiology 09/30/20 10:48 Blood - Venous Blood Culture - Final No growth after 5 days. 09/30/20 10:39 Blood - Venous Blood Culture - Final No growth after 5 days. Assessment and Plan (1) Encephalopathy: Problem details: ? encephalitis due to covid. Status: Acute (2) Hypernatremia: Status: Acute (3) Sepsis: Status: Acute (4) Pneumonia: Status: Acute Assessment and Plan: 80/m with HTN, HLD, history of colon cancer, depression here with 1. Sepsis due to COVID-19/pneumonia/ metabolic toxic encephalopathy. Awake intermittent No fevers Leukocytosis is trending down slowly improving Tachycardia and tachypnea seems improving. Initially patient chest x-ray has by better patches disease and subsequently was started on IV antibiotic initially-IV doxycycline and Zosyn, also was on p.o. dexamethasone: Subsequently shortness of breath progressively worsening and CTA shows progressive disease. Patient was seen by Pulmonary, id, ICU: Recommended to continue oxygen and high-flow currently, also dexamethasone was switched to IV dexamethasone, as per iD: He never had acute viral phase with early oxygen need where Remdesivir may benefit although data shows doesnt improve mortality or less progression to intubation. In addition patient also received trial of IV Lasix chance to give the benefit of doubt of any question of chf. Id recommended to continue doxycycline for now, blood culture at 5 days negative. Discussed with ICU and Pulmonary: Consent form was filled by the family over the phone Mr. natalia macario: For another dose plasma convulsant. As per ICU recommendation patient is on IV Solu-Medrol 40mg q.12h, IV famotidine, IV thiamine, also on Lovenox as per D-dimer. 2. Acute toxic encephalopathy. Thought to be multifactorial: Related to sepsis, COVID-19 infection, hyponatremia. Seems to be improving slowly Has multiple electrolytic abnormalities probably related to poor oral intake Hyponatremia resolved with D5W and now had adjusted PPN accordingly. Potassium potassium replaced, also getting phosphorus and potassium ppn Magnesium borderline also repleted Hypocalcemia flores when adjusted for albumin seems calcium seems near normal, given the benefit of doubt 1 calcium gluconate dose was given. Discussed with speech and Swallow: With adjusted his diet consistency. 3. metabolic acidosis/hypernatremia: Discussed with the Pulmonary and Nephro: Metabolic acidosis flores yesterday pH is 7.5, bicarb is 13 Thought to be metabolic earlier acidosis related to since patient have poor oral intake /Ftt, hypoxia . Seems like metabolic in acidosis improved. 4. History of hypertension: blood pressure seems currently stable , on a dmission was hypotensive, received 4 L of IV fluid as per chart review, current blood pressure is stable will continue to hold home medications including hydrochlorothiazide and losartan. 5. Diabetes mellitus with elevated blood sugar: Fingersticks: Improving 180-100 range Continue to monitor, fingersticks with coverage above 200 range. hold metformin and dulaglutide that he takes at home 6. initially Neutropenic fever likely related to COVID-19 infection as well chemotherapy. WBC improved to 2.6 -received granix . received 2 days on granix 300mcg sc daily . Above management discussed with patient's parts administrator Mr. Blaise macario and Chinedu alberto in detail.
--- NOTE | 2020-10-10 16:33 | PC.NURSE ---
Pt Highflow O2 titrated to 40l 100% highflow, tolerating well. O2 sats 92-99% consistently, occasional drop but pt quickly recovers. Pt was refusing blood gas draw, notified, reattempt, pt still refused, MD notified. Pt requesting to eat, swallow eval entered since pt was not eating for the alst week. Recommended puree and thin liquids. Pt's HCP gave concent for another unit of plasma to be given. Will come in shipment tonight. Pt looking better from previous days. will continue to monitor.
[2020-10-10] MEDS: Insulin Lispro 100 UNIT/ML 3 ML VIAL SUBCUT ×2 (17:10→20:19)
--- NOTE | 2020-10-10 17:48 | P.PNPL_ITS ---
Subjective Subjective Date of Service: 10/10/20 Interval history: The patient was seen on exam. Did received the convalescent plasma last night. Today he still on high-flow. However, he is more awake and is answering simple questions. He is also saturating 100% on the high-flow. Therefore will start decreasing the flow. If he did have any significant response to the convalescent plasma he should go ahead and received a 2nd dose. Will make arrangements for that. Objective Data Labs CBC & Chem 7: 10/10/20 05:56 10/10/20 05:56 Labs: Laboratory Results - last 24 hr 10/09/20 10/09/20 10/09/20 17:58 18:33 18:56 WBC 20.8 H RBC 3.24 L Hgb 9.9 L Hct 30.2 L MCV 93.2 MCH 30.6 MCHC 32.8 RDW 16.0 Plt Count 98 L MPV 11.5 Immature Gran % (Auto) 3.7 H Neut % (Auto) 88.0 H Lymph % (Auto) 6.3 L Hernando % (Auto) 1.8 L Eos % (Auto) 0.0 Baso % (Auto) 0.2 Lymph # (Auto) 1.3 Hernando # (Auto) 0.4 Eos # (Auto) 0.0 Baso # (Auto) 0.1 Abs Immat Gran (auto) 0.76 H Absolute Neuts (auto) 18.3 H Absolute Nucleated RBC 0.110 H Nucleated RBC % (auto) 0.5 H D-Dimer Sodium Potassium Chloride Carbon Dioxide Anion Gap BUN Creatinine Estim Creat Clear Calc Estimated GFR POC Glucose 168 H 98 Random Glucose Estimat Average Glucose Hemoglobin A1c % Calcium Phosphorus Magnesium Albumin 10/09/20 10/09/20 10/10/20 20:06 22:34 04:20 WBC RBC Hgb Hct MCV MCH MCHC RDW Plt Count MPV Immature Gran % (Auto) Neut % (Auto) Lymph % (Auto) Hernando % (Auto) Eos % (Auto) Baso % (Auto) Lymph # (Auto) Hernando # (Auto) Eos # (Auto) Baso # (Auto) Abs Immat Gran (auto) Absolute Neuts (auto) Absolute Nucleated RBC Nucleated RBC % (auto) D-Dimer Sodium Potassium Chloride Carbon Dioxide Anion Gap BUN Creatinine Estim Creat Clear Calc Estimated GFR POC Glucose 81 112 168 H Random Glucose Estimat Average Glucose Hemoglobin A1c % Calcium Phosphorus Magnesium Albumin 10/10/20 10/10/20 10/10/20 05:56 05:56 05:56 WBC 19.3 H RBC 2.98 L Hgb 9.2 L Hct 27.3 L MCV 91.6 MCH 30.9 MCHC 33.7 RDW 15.9 Plt Count 91 L MPV 11.5 Immature Gran % (Auto) Neut % (Auto) Lymph % (Auto) Hernando % (Auto) Eos % (Auto) Baso % (Auto) Lymph # (Auto) Hernando # (Auto) Eos # (Auto) Baso # (Auto) Abs Immat Gran (auto) Absolute Neuts (auto) Absolute Nucleated RBC 0.070 H Nucleated RBC % (auto) 0.4 H D-Dimer 2450 Sodium 144 Potassium 2.9 L Chloride 108 Carbon Dioxide 26 Anion Gap 13 BUN 16 Creatinine 0.56 Estim Creat Clear Calc 104.8 Estimated GFR > 60 POC Glucose Random Glucose 158 H D Estimat Average Glucose Hemoglobin A1c % Calcium 6.7 L Phosphorus 2.2 L Magnesium 1.7 Albumin 2.1 L 10/10/20 10/10/20 10/10/20 05:56 07:12 11:06 WBC RBC Hgb Hct MCV MCH MCHC RDW Plt Count MPV Immature Gran % (Auto) Neut % (Auto) Lymph % (Auto) Hernando % (Auto) Eos % (Auto) Baso % (Auto) Lymph # (Auto) Hernando # (Auto) Eos # (Auto) Baso # (Auto) Abs Immat Gran (auto) Absolute Neuts (auto) Absolute Nucleated RBC Nucleated RBC % (auto) D-Dimer Sodium Potassium Chloride Carbon Dioxide Anion Gap BUN Creatinine Estim Creat Clear Calc Estimated GFR POC Glucose 183 H 223 H Random Glucose Estimat Average Glucose 229 Hemoglobin A1c % 9.6 Calcium Phosphorus Magnesium Albumin 10/10/20 15:25 WBC RBC Hgb Hct MCV MCH MCHC RDW Plt Count MPV Immature Gran % (Auto) Neut % (Auto) Lymph % (Auto) Hernando % (Auto) Eos % (Auto) Baso % (Auto) Lymph # (Auto) Hernando # (Auto) Eos # (Auto) Baso # (Auto) Abs Immat Gran (auto) Absolute Neuts (auto) Absolute Nucleated RBC Nucleated RBC % (auto) D-Dimer Sodium Potassium Chloride Carbon Dioxide Anion Gap BUN Creatinine Estim Creat Clear Calc Estimated GFR POC Glucose 282 H Random Glucose Estimat Average Glucose Hemoglobin A1c % Calcium Phosphorus Magnesium Albumin Microbiology Microbiology Results: Microbiology 09/30/20 10:48 Blood - Venous Blood Culture - Final No growth after 5 days. 09/30/20 10:39 Blood - Venous Blood Culture - Final No growth after 5 days. Review of Systems Constitutional: Reports weakness Cardiovascular: Denies chest pain Respiratory: Denies pain with cough Reports as per HPI and Reports weakness Physical Exam Vital Signs: Vital Signs: Last Vital Signs Temp 97.2 F 10/10/20 15:21 Pulse 79 10/10/20 15:21 Resp 20 10/10/20 15:23 BP 124/65 10/10/20 15:21 Pulse Ox 95 10/10/20 15:21 Body Mass Index 21.9 Const: General: comfortable and no acute distress HENMT: General nose exam: Abnormal external nose present and Nasal discharge p resent Neck: Neck: Yes normal visual inspection, Yes full ROM and Yes no l ymphadenopathy Chest: Chest palpation & inspection: normal inspection of the chest Resp: Auscultation: diminished lung sounds Cardio: Rate: regular rate Rhythm: regular rhythm Heart sounds: S1 normal heart sound present and S2 normal heart sound present GI: Palpation (GI): Soft to palpation and nontender Auscultation: normal bowel sounds Assessment and Plan Assessment and plan (1) Encephalopathy: Problem details: ? encephalitis due to covid. Seems to be doing better today. Status: Acute (2) COVID-19: Status: Acute Assessment and Plan: With some evidence of improvement after the 1st couple of some plasma infusion would recommend to give the 2nd dose. (3) Pneumonia: Status: Acute (4) Colon cancer metastasized to liver: Status: Acute Time Spent With Patient Time: Total time spent is greater than 50% in coordination of care (as documented) at patient's floor/unit and/or counseling patient: Time with patient: 15 - 24 minutes
[2020-10-10 20:15] LABS: Glucose, Whole Blood 257 mg/dL (60-115)
[2020-10-10 22:18] LABS: Potassium 3.9 mmol/l (3.3-5.1)
[2020-10-11] VITALS (13 sets, daily range): BP systolic 123–156; BP diastolic 61–68; PULSE 69–88; RESP 18–20; TEMP 36.1–37.4; O2SAT 90–100
[2020-10-11 00:33] LABS: Glucose, Whole Blood 252 mg/dL (60-115)
[2020-10-11] MEDS: 0.9 % Sodium Chloride Flush 3 ML SYRINGE IVFLUSH ×3 (00:46→16:26)
[2020-10-11 03:59] LABS: Glucose, Whole Blood 207 mg/dL (60-115)
[2020-10-11] MEDS: Thiamine HCL 200 MG in 0.9 % Sodium Chloride 100 ML 204 MG IV ×2 (05:18→16:26)
[2020-10-11] MEDS: Doxycycline Hyclate 100 MG in 0.9 % Sodium Chloride 250 ML 166.67 MG IV ×2 (05:57→17:13)
--- NOTE | 2020-10-11 06:40 | PC.NURSE ---
Lab attempted to draw morning labs, patient refused. Hospitalist notified patient refused labs. Will update day shift rn.
[2020-10-11 07:27] LABS: Glucose, Whole Blood 236 mg/dL (60-115)
[2020-10-11] MEDS: Famotidine/PF 20 MG/2 ML VIAL IVPUSH ×2 (07:58→19:35)
[2020-10-11 08:56] LABS: Hematocrit 26.8 % (42-52); Hemoglobin 8.8 g/dl (14.0-18.0); Mean Corpuscular HGB Conc 32.8 g/dl (31.0-36.0); Mean Corpuscular Hemoglobin 30.4 pg (27.0-33.0); Mean Corpuscular Volume 92.7 fL (80-98); Mean Platelet Volume 11.3 fL (9.4-12.4); NRBC Pct Auto 0.2 /100WBC (0.0-0.2); Red Blood Count 2.89 X10*6/uL (4.60-5.80); Red Cell Distribution Width 16.8 % (11.0-16.0); White Blood Count 20.8 X10*3/uL (4.8-10.8)
[2020-10-11 09:03] LABS: Platelet Count 82 X10*3/uL (160-400)
[2020-10-11 09:32] LABS: D Dimer 3111 NG/ML
[2020-10-11 09:33] LABS: Anion Gap 12 (12-20); Blood Urea Nitrogen 19 mg/dL (9-16); C Reactive Protein 13.18 mg/dL (< or = 0.50); Calcium 7.1 mg/dL (8.4-10.2); Carbon Dioxide 25 mmol/L (22-29); Chloride 106 mmol/L (96-108); Creatinine Clr Calc Pharmacy 97.8; Estimated Glomerular Filt Rate > 60; Glucose Random 239 mg/dL (60-115); Magnesium 1.9 mg/dL (1.6-2.6); Potassium 3.3 mmol/l (3.3-5.1); Sodium 140 mmol/L (135-145)
--- NOTE | 2020-10-11 09:52 | MHC.CM.PN ---
It has been discovered that the HCP Agent listed on the HCP, has .
--- NOTE | 2020-10-11 10:20 | PM.PNPUL ---
Subjective Subjective Date of Service: 10/11/20 Interval history: The patient was seen on exam. Seems to be more awake. Still confused. He was asking for his glasses. It may be helpful to get his glasses if the patient is having issues with site. Otherwise I wean down the high-flow further to 35 L still maintaining a pulse ox in the low 90s. Patient should be out of bed. Objective Data Labs CBC & Chem 7: 10/11/20 08:23 10/11/20 08:23 Labs: Laboratory Results - last 24 hr 10/10/20 10/10/20 10/10/20 11:06 15:25 20:11 WBC RBC Hgb Hct MCV MCH MCHC RDW Plt Count MPV Absolute Nucleated RBC Nucleated RBC % (auto) D-Dimer Sodium Potassium Chloride Carbon Dioxide Anion Gap BUN Creatinine Estim Creat Clear Calc Estimated GFR POC Glucose 223 H 282 H 257 H Random Glucose Calcium Magnesium C-Reactive Protein 10/10/20 10/11/20 10/11/20 21:49 00:28 03:54 WBC RBC Hgb Hct MCV MCH MCHC RDW Plt Count MPV Absolute Nucleated RBC Nucleated RBC % (auto) D-Dimer Sodium Potassium 3.9 D Chloride Carbon Dioxide Anion Gap BUN Creatinine Estim Creat Clear Calc Estimated GFR POC Glucose 252 H 207 H Random Glucose Calcium Magnesium C-Reactive Protein 10/11/20 10/11/20 10/11/20 07:15 08:23 08:23 WBC 20.8 H RBC 2.89 L Hgb 8.8 L Hct 26.8 L MCV 92.7 MCH 30.4 MCHC 32.8 RDW 16.8 H Plt Count 82 L MPV 11.3 Absolute Nucleated RBC 0.040 H Nucleated RBC % (auto) 0.2 D-Dimer 3111 Sodium Potassium Chloride Carbon Dioxide Anion Gap BUN Creatinine Estim Creat Clear Calc Estimated GFR POC Glucose 236 H Random Glucose Calcium Magnesium C-Reactive Protein 10/11/20 10/11/20 08:23 08:23 WBC RBC Hgb Hct MCV MCH MCHC RDW Plt Count MPV Absolute Nucleated RBC Nucleated RBC % (auto) D-Dimer Sodium 140 Potassium 3.3 Chloride 106 Carbon Dioxide 25 Anion Gap 12 BUN 19 H Creatinine 0.60 Estim Creat Clear Calc 97.8 Estimated GFR > 60 POC Glucose Random Glucose 239 H D Calcium 7.1 L Magnesium 1.9 Cancelled C-Reactive Protein 13.18 H Microbiology Microbiology Results: Microbiology 09/30/20 10:48 Blood - Venous Blood Culture - Final No growth after 5 days. 09/30/20 10:39 Blood - Venous Blood Culture - Final No growth after 5 days. Review of Systems Constitutional: Reports weakness Eyes: Reports blurry vision and Reports change in vision Respiratory: Denies chest congestion and Reports cough Gastrointestinal: Denies abdominal pain Musculoskeletal: Reports abnormal gait Reports as per HPI, Reports Abnormal speech present, Reports abnormal gait, Reports confusion and Reports weakness Psychiatric: Reports confusion Physical Exam Vital Signs: Vital Signs: Last Vital Signs Temp 97.0 F 10/11/20 08:00 Pulse 88 10/11/20 08:00 Resp 18 10/11/20 08:17 BP 150/64 H 10/11/20 08:00 Pulse Ox 94 10/11/20 10:15 Body Mass Index 21.9 Const: General: confusion Orientation/consciousness: confusion HENMT: General nose exam: Abnormal external nose present and Nasal discharge present Eyes: Pupils: Equal, round and reactive pupils present Neck: Neck: Yes normal visual inspection, Yes full ROM and Yes no lymphadenopathy Chest: Chest palpation & inspection: normal inspection of the chest Resp: Auscultation: diminished lung sounds Cardio: Rate: regular rate Rhythm: regular rhythm Heart sounds: S1 normal heart sound present and S2 normal heart sound present GI: Palpation (GI): Soft to palpation and nontender Auscultation: normal bowel sounds : General: Yes no CVA tenderness Back/Spine/Pelvis: Back: no CVA tenderness Skin: General skin exam: rashes and/or lesions noted Neuro: General: confusion Cranial nerves: Yes Equal, round and reactive pupils present Speech: Abnormal speech present Assessment and Plan Assessment and plan (1) Encephalopathy: Problem details: ? encephalitis due to covid. Seems to be doing better today. Status: Acute Assessment and Plan: Out of bed to chair Provide glasses so we can see better and interact better (2) COVID-19: Status: Acute (3) Pneumonia: Problem details: Be repeating a chest x-ray Continue to decrease high-flow Status: Acute (4) Colon cancer metastasized to liver: Status: Acute Time Spent With Patient Time: Total time spent is greater than 50% in coordination of care (as documented) at patient's floor/unit and/or counseling patient: Time with patient: 25 - 35 minutes
[2020-10-11 10:54] LABS: Glucose, Whole Blood 319 mg/dL (60-115)
[2020-10-11] MEDS: Insulin Lispro 100 UNIT/ML 3 ML VIAL SUBCUT ×2 (11:25→17:13)
[2020-10-11] MEDS: Enoxaparin Sodium 60 MG/0.6 ML SYRINGE 35 MG SUBCUT (11:26)
--- NOTE | 2020-10-11 11:27 | MHC.CM.PN ---
Patient has not yet been medically cleared for dc (IV Doxycylcine, IV Pepcid, IV Solu Medrol, IV Thiamine, High Flow O2).Patient does not have a HCP; Guardianship may be necessary, especially if Patient requires a SNF. Patient lives with family and has a WILDLIFE CONTROL AGENT. CM will continue to follow for dc planning (HOME VS SNF).
--- NOTE | 2020-10-11 12:03 | MHC.CLN ---
F/U PO INTAKE CONTINUES TO BE ZERO [employer] RECOMMENDED PUREED CONSISTENCY PT RECEIVING TPN D15AA5% AT 65CC/HR TO PROVIDE 1108KCALS, 78G PROTEIN (1.1G/KG) RECOMMEND INCREASING TPN D15 AA5% AY 85CC/HR TO PROVIDE 1448KCALS, 102G PROTEIN (1.5G/KG) IN ADDITION WILL ADD NUTRITION SUPPLEMENTS WITH CURRENT DIET REPLETE LYTES, MONITOR PO INTAKE CLOSELY FOLLOWING
[2020-10-11 12:40] LABS: Phosphorus 2.3 mg/dL (2.7-4.5)
--- NOTE | 2020-10-11 12:45 | HO.PM.IMPN ---
Subjective Subjective Date of Service: 10/11/20 Interval History: Acute hypoxemic respiratory failure from covid, he remains very hypxic and on high flwo 100%, 30l Review of Systems Patient is more alert, remains very confused. Not eating on drinking and on tpn Physical Exam Vital Signs: Vital Signs: Last Vital Signs Temp 97.8 F 10/11/20 12:00 Pulse 78 10/11/20 12:00 Resp 18 10/11/20 12:00 BP 135/65 10/11/20 12:00 Pulse Ox 95 10/11/20 12:00 Body Mass Index 21.9 General: He is confused, restfull Resp: No respiratory distress CVS: S1,S2,RRR GI: +BS, NT, no distention Skin: No rash Neuro: moves extremities freely Psych: appropriate affect Objective Data Current Medications Generic Name Dose Route Start Last Admin Trade Name Freq PRN Reason Stop Dose Admin Acetaminophen 650 mg 09/30/20 15:19 Acetaminophen 325 Mg Tablet PO Q6H PRN Pain, Mild (Pain Scale 1-3) Benzocaine 1 lozenge 10/01/20 11:45 Throat Lozenge, Medicated Lozenge MUCOUS MEM Q2H PRN Sore Throat Dextrose 25 gm 10/09/20 17:10 Dextrose 50 % 25 Gm/50 Ml Vial IVPUSH ONCE PRN BS < 100 Enoxaparin Sodium 35 mg 10/08/20 12:00 10/11/20 11:26 Enoxaparin Sodium 60 Mg/0.6 Ml Syringe SUBCUT 35 mg Q12H JEROD Administration Famotidine 20 mg 10/07/20 21:00 10/11/20 07:58 Famotidine/Pf 20 Mg/2 Ml Vial IVPUSH 20 mg BID JEROD Administration Thiamine HCl 200 mg/ Sodium 102 mls @ 204 mls/hr 10/07/20 16:45 10/11/20 05:48 Chloride IV Infused Q12H JEROD Infusion Doxycycline Hyclate 100 mg/ 250 mls @ 166.67 mls/hr 10/09/20 05:00 10/11/20 07:27 Sodium Chloride IV Infused Q12H JEROD Infusion Potassium Chloride 20 meq/ 1,560 mls @ 65 mls/hr 10/10/20 18:00 10/11/20 07:27 Sodium Chloride 20 meq/ IVCONT 10/11/20 17:59 65 mls/hr Magnesium Sulfate 16 meq/ DAILY@1800 JEROD Infusion Potassium Phosphate 40 mmol/ Calcium Gluconate 9.3 meq/ Multivitamins 12.8 ml/ Trace Metals 1.3 ml/ Amino Acids/ Dextrose Potassium Chloride 20 meq/ 2,040 mls @ 85 mls/hr 10/11/20 18:00 Sodium Chloride 20 meq/ IVCONT 10/12/20 17:59 Magnesium Sulfate 16 meq/ DAILY@1800 JEROD Potassium Phosphate 40 mmol/ Calcium Gluconate 9.3 meq/ Multivitamins 10 ml/ Trace Metals 1 ml/ Amino Acids/ Dextrose Insulin Human Lispro 0 unit 09/30/20 21:00 10/11/20 11:25 Insulin Lispro 100 Unit/Ml 3 Ml Vial SUBCUT 8 unit QIDACHS [facility] Administration Protocol Lidocaine/Diphenhydr/Alum/Mg/Simeth 10 ml 09/30/20 18:15 10/11/20 11:15 Mag&Al/Sim/Diphenhyd/Lidocaine 10 Ml Oral.Susp PO Not Given Q6H [facility] Protocol Methylprednisolone Sodium Succinate 40 mg 10/07/20 17:00 10/11/20 05:18 Methylprednisolone Sod Succ/Pf 40 Mg/Ml Vial IVPUSH 40 mg Q12H JEROD Administration Ondansetron HCl 4 mg 09/30/20 15:19 Ondansetron Hcl 4 Mg/2 Ml Vial IVPUSH Q8H PRN Nausea and Vomiting Pharmacy Consult 1 each 09/30/20 11:28 Consult Rx Perform Med Rec MISCELLANE ONCE PRN Consult order Sodium Chloride 3 ml 09/30/20 16:00 10/11/20 07:58 0.9 % Sodium Chloride Flush 3 Ml Syringe IVFLUSH 3 ml QSHIFT JEROD Administration Trazodone HCl 25 mg 10/02/20 22:11 10/02/20 22:28 Trazodone Hcl 25 Mg Halftab PO 25 mg BEDTIME PRN Administration Insomnia Labs CBC & Chem 7: 10/11/20 08:23 10/11/20 08:23 Microbiology Microbiology Results: Microbiology 09/30/20 10:48 Blood - Venous Blood Culture - Final No growth after 5 days. 09/30/20 10:39 Blood - Venous Blood Culture - Final No growth after 5 days. Assessment and Plan (1) Encephalopathy: Problem details: ? encephalitis due to covid. Seems to be doing better today. Status: Acute (2) Hypernatremia: Status: Acute (3) Sepsis: Status: Acute (4) Pneumonia: Problem details: Be repeating a chest x-ray Continue to decrease high-flow Status: Acute Assessment and Plan: 80/m with HTN, HLD, history of colon cancer, depression here with 1. Sepsis due to COVID-19/pneumonia with severe acute respirator failure and hypoxia. - s/p Convalescent plasma x 2 -He remains on high O2 requirement with very slow progress -continue O2 -Finish course of Dexamethasone -ID, ICU and pulmonary have seen him -cultures have been negative -Finish course of empiric Doxy 2. Acute toxic and metabolic encephalopathy of multifactorial etiolog inclduing covid, dementia, sundowning -improving, avoid sedative, haldol/ativan PRN for agitation 3. metabolic acidosis--resolved Hypenatremia--resolved 4. History of hypertension: Blood pressure is controlled. 5. Diabetes mellitus--insulin hold metformin and dulaglutide that he takes at home 6. initially Neutropenic fever likely related to COVID-19 infection as well chemotherapy. WBC improved to 2.6 -received granix . received 2 days on granix 300mcg sc daily . 7. Leukocytosis--likely from steroid and grabnix 8. FTT, moderate protein calory malnutrition--TPN Overall prognosis is poor and care has been discussed with family and on last conversation they wanted everything done.
--- NOTE | 2020-10-11 12:49 | XR_ITS ---
EXAMINATION: XR CHEST CLINICAL INFORMATION: Covid COMPARISON: October 05, 2020 TECHNIQUE: AP portable view of the chest was obtained. FINDINGS: There is again noted to be bilateral patchy regions of airspace disease with no evidence of pulmonary edema. No pneumothorax is seen. No significant pleural effusion. Heart normal size. Right internal jugular port catheter seen in place with tip in region of the cavoatrial junction. XR/XR chest 1V IMPRESSION: Diffuse bilateral patchy regions of disease without significant change from prior study.
--- NOTE | 2020-10-11 14:00 | PC.NURSE ---
Pt alert ot self. Was able to titrate 02 to 100% Highflow 30 L. Pt tolerating well, o2 sat 92-100%. Pt taking sips of water, still not wanting to eat food. Blood bank called about plasma from yestered, asked MD if wanted to be given. Told to hold for now. Will continue to monitor.
[2020-10-11 16:35] LABS: Glucose, Whole Blood 277 mg/dL (60-115)
[2020-10-11] MEDS: Mag&Al/Sim/Diphenhyd/Lidocaine 10 ML ORAL.SUSP PO (19:35)
[2020-10-11] MEDS: traZODone HCL 25 MG HALFTAB PO (23:54)
[2020-10-12] VITALS (14 sets, daily range): BP systolic 128–160; BP diastolic 62–77; PULSE 72–89; RESP 16–20; TEMP 36.2–36.6; O2SAT 90–99
[2020-10-12] MEDS: Enoxaparin Sodium 60 MG/0.6 ML SYRINGE 35 MG SUBCUT ×2 (00:37→12:13)
[2020-10-12] MEDS: LORazepam 2 MG/ML VIAL 1 MG IVPUSH ×3 (00:38→22:29)
[2020-10-12] MEDS: Mag&Al/Sim/Diphenhyd/Lidocaine 10 ML ORAL.SUSP PO (00:45)
[2020-10-12] MEDS: 0.9 % Sodium Chloride Flush 3 ML SYRINGE IVFLUSH ×2 (00:58→07:48)
[2020-10-12] MEDS: Thiamine HCL 200 MG in 0.9 % Sodium Chloride 100 ML 204 MG IV ×2 (05:17→16:57)
[2020-10-12] MEDS: Doxycycline Hyclate 100 MG in 0.9 % Sodium Chloride 250 ML 166.7 MG IV (06:16)
[2020-10-12] MEDS: Haloperidol Lactate 5 MG/ML VIAL 1 MG IVPUSH (06:41)
--- NOTE | 2020-10-12 06:48 | PC.NURSE ---
PT GIVEN 1MG OF IVP HALDOL. 4MG WASTED WITH TREMAYNE LIGHT. PYXIS DID NOT ASK FOR WITNESS. RN MATERIAL DISPATCHER JANEL DAVIS.
--- NOTE | 2020-10-12 06:49 | PC.NURSE ---
haldol 1mg iv given by Mary LIGHT & benson RN witnessed waste of 4mg with her. pyxis did not ask for witness
[2020-10-12 07:09] LABS: Hematocrit 28.3 % (42-52); Hemoglobin 9.4 g/dl (14.0-18.0); Mean Corpuscular HGB Conc 33.2 g/dl (31.0-36.0); Mean Corpuscular Hemoglobin 30.8 pg (27.0-33.0); Mean Corpuscular Volume 92.8 fL (80-98); Mean Platelet Volume 12.1 fL (9.4-12.4); NRBC Pct Auto 0.2 /100WBC (0.0-0.2); Platelet Count 105 X10*3/uL (160-400); Red Blood Count 3.05 X10*6/uL (4.60-5.80); Red Cell Distribution Width 17.2 % (11.0-16.0); White Blood Count 16.8 X10*3/uL (4.8-10.8)
[2020-10-12 07:21] LABS: Glucose, Whole Blood 296 mg/dL (60-115)
[2020-10-12 07:33] LABS: Anion Gap 14 (12-20); Blood Urea Nitrogen 19 mg/dL (9-16); Carbon Dioxide 24 mmol/L (22-29); Chloride 105 mmol/L (96-108); Creatinine Clr Calc Pharmacy 94.6; Estimated Glomerular Filt Rate > 60; Glucose Random 327 mg/dL (60-115); Potassium 3.8 mmol/l (3.3-5.1); Sodium 139 mmol/L (135-145)
[2020-10-12] MEDS: Insulin Lispro 100 UNIT/ML 3 ML VIAL SUBCUT ×3 (07:48→17:00)
[2020-10-12] MEDS: Famotidine/PF 20 MG/2 ML VIAL IVPUSH ×2 (07:48→19:37)
[2020-10-12 08:02] LABS: Calcium 7.3 mg/dL (8.4-10.2)
[2020-10-12 10:26] LABS: Albumin Level 2.1 g/dL (3.5-5.0); Magnesium 2.1 mg/dL (1.6-2.6); Phosphorus 2.7 mg/dL (2.7-4.5)
[2020-10-12 11:18] LABS: Glucose, Whole Blood 300 mg/dL (60-115)
--- NOTE | 2020-10-12 12:34 | P.PNIM_ITS ---
Subjective Subjective Date of Service: 10/12/20 Interval History: Acute hypoxemic respiratory failure from covid, he remains very hypxic and on high flwo 100%, 30l . He seemed calm this morning but has become incrementally agitated and restless and he did this ealier in the morning and required ativan and haldol Review of Systems Patient is more alert, remains very confused. Not eating on drinking and on tpn Physical Exam Vital Signs: Vital Signs: Last Vital Signs Temp 97.3 F 10/12/20 11:05 Pulse 73 10/12/20 11:05 Resp 20 10/12/20 11:40 BP 132/62 10/12/20 11:05 Pulse Ox 99 10/12/20 11:05 Body Mass Index 21.9 General: Agitated, confused Resp: normal respiratory effort CVS: regular on monitor GI: +soft, no sing of tenderness Skin: No rash Neuro: moves all extremities freely Psych: flat affect Objective Data Current Medications Generic Name Dose Route Start Last Admin Trade Name Freq PRN Reason Stop Dose Admin Acetaminophen 650 mg 09/30/20 15:19 Acetaminophen 325 Mg Tablet PO Q6H PRN Pain, Mild (Pain Scale 1-3) Benzocaine 1 lozenge 10/01/20 11:45 Throat Lozenge, Medicated Lozenge MUCOUS MEM Q2H PRN Sore Throat Dextrose 25 gm 10/09/20 17:10 Dextrose 50 % 25 Gm/50 Ml Vial IVPUSH ONCE PRN BS < 100 Enoxaparin Sodium 35 mg 10/08/20 12:00 10/12/20 12:13 Enoxaparin Sodium 60 Mg/0.6 Ml Syringe SUBCUT 35 mg Q12H JEROD Administration Famotidine 20 mg 10/07/20 21:00 10/12/20 07:48 Famotidine/Pf 20 Mg/2 Ml Vial IVPUSH 20 mg BID JEROD Administration Thiamine HCl 200 mg/ Sodium 102 mls @ 204 mls/hr 10/07/20 16:45 10/12/20 06:20 Chloride IV Infused Q12H [facility] Infusion Doxycycline Hyclate 100 mg/ 250 mls @ 166.67 mls/hr 10/09/20 05:00 10/12/20 07:50 Sodium Chloride IV Infused Q12H [facility] Infusion Potassium Chloride 20 meq/ 2,040 mls @ 85 mls/hr 10/11/20 18:00 10/11/20 20:39 Sodium Chloride 20 meq/ IVCONT 10/12/20 17:59 Infused Magnesium Sulfate 16 meq/ DAILY@1800 JEROD Infusion Potassium Phosphate 40 mmol/ Calcium Gluconate 9.3 meq/ Multivitamins 10 ml/ Trace Metals 1 ml/ Amino Acids/ Dextrose Potassium Chloride 20 meq/ 2,040 mls @ 85 mls/hr 10/12/20 18:00 Sodium Chloride 20 meq/ IVCONT 10/13/20 17:59 Magnesium Sulfate 16 meq/ DAILY@1800 JEROD Potassium Phosphate 40 mmol/ Calcium Gluconate 9.3 meq/ Multivitamins 10 ml/ Trace Metals 1 ml/ Amino Acids/ Dextrose Insulin Human Lispro 0 unit 09/30/20 21:00 10/12/20 12:13 Insulin Lispro 100 Unit/Ml 3 Ml Vial SUBCUT 4 unit QIDACHS [facility] Administration Protocol Lidocaine/Diphenhydr/Alum/Mg/Simeth 10 ml 09/30/20 18:15 10/12/20 12:13 Mag&Al/Sim/Diphenhyd/Lidocaine 10 Ml Oral.Susp PO Not Given Q6H [facility] Protocol Methylprednisolone Sodium Succinate 40 mg 10/07/20 17:00 10/12/20 05:16 Methylprednisolone Sod Succ/Pf 40 Mg/Ml Vial IVPUSH 40 mg Q12H [facility] Administration Ondansetron HCl 4 mg 09/30/20 15:19 Ondansetron Hcl 4 Mg/2 Ml Vial IVPUSH Q8H PRN Nausea and Vomiting Pharmacy Consult 1 each 09/30/20 11:28 Consult Rx Perform Med Rec MISCELLANE ONCE PRN Consult order Sodium Chloride 3 ml 09/30/20 16:00 10/12/20 07:48 0.9 % Sodium Chloride Flush 3 Ml Syringe IVFLUSH 3 ml QSHIFT [facility] Administration Trazodone HCl 25 mg 10/02/20 22:11 10/11/20 23:54 Trazodone Hcl 25 Mg Halftab PO 25 mg BEDTIME PRN Administration Insomnia Labs CBC & Chem 7: 10/12/20 05:58 10/12/20 05:58 Microbiology Microbiology Results: Microbiology 09/30/20 10:48 Blood - Venous Blood Culture - Final No growth after 5 days. 09/30/20 10:39 Blood - Venous Blood Culture - Final No growth after 5 days. Assessment and Plan (1) Encephalopathy: Problem details: ? encephalitis due to covid. Seems to be doing better today. Status: Acute (2) Hypernatremia: Status: Acute (3) Sepsis: Status: Acute (4) Pneumonia: Problem details: Be repeating a chest x-ray Continue to decrease high-flow Status: Acute Assessment and Plan: 80/m with HTN, HLD, history of colon cancer, depression here with 1. Sepsis due to COVID-19/pneumonia with severe acute respirator failure and hypoxia. He tested positive more than 2 weeks ago on Sep 30, 2020 so he is no longer acutely ill with covid - s/p Convalescent plasma x 2 -He remains on high O2 requirement with very slow progress -continue O2 -Finish course of Dexamethasone -ID, ICU and pulmonary have seen him -cultures have been negative -Finish course of empiric Doxy 2. Acute toxic and metabolic encephalopathy of multifactorial etiolog inclduing covid, dementia, sundowning -improving, avoid sedative, haldol/ativan PRN for agitation 3.Metabolic acidosis--resolved Hypenatremia--resolved 4. History of hypertension: Blood pressure is controlled. 5. Diabetes mellitus--insulin hold metformin and dulaglutide that he takes at home 6. initially Neutropenic fever likely related to COVID-19 infection as well chemotherapy. WBC improved to 2.6 -received granix . received 2 days on granix 300mcg sc daily . 7. Leukocytosis--likely from steroid and grabnix 8. FTT, moderate protein, he is refusing to eat.calory malnutrition--TPN Overall prognosis is poor and care has been discussed with family and on last conversation they wanted everything done.
[2020-10-12 16:19] LABS: Glucose, Whole Blood 292 mg/dL (60-115)
[2020-10-12] MEDS: Doxycycline Hyclate 100 MG in 0.9 % Sodium Chloride 250 ML 166.67 MG IV (17:43)
[2020-10-12 20:34] LABS: Glucose, Whole Blood 208 mg/dL (60-115)
[2020-10-13] VITALS (13 sets, daily range): BP systolic 90–151; BP diastolic 48–88; PULSE 76–153; RESP 18–44; TEMP 36.4–37.2; O2SAT 90–100
[2020-10-13] MEDS: 0.9 % Sodium Chloride Flush 3 ML SYRINGE IVFLUSH ×4 (00:05→21:55)
[2020-10-13] MEDS: Enoxaparin Sodium 60 MG/0.6 ML SYRINGE 35 MG SUBCUT ×2 (00:08→11:22)
[2020-10-13 00:55] LABS: Glucose, Whole Blood 287 mg/dL (60-115)
[2020-10-13] MEDS: Thiamine HCL 200 MG in 0.9 % Sodium Chloride 100 ML 204 MG IV ×2 (03:50→16:08)
[2020-10-13] MEDS: LORazepam 2 MG/ML VIAL 1 MG IVPUSH ×3 (03:50→17:25)
[2020-10-13 04:10] LABS: Glucose, Whole Blood 331 mg/dL (60-115)
[2020-10-13] MEDS: Doxycycline Hyclate 100 MG in 0.9 % Sodium Chloride 250 ML 166.67 MG IV ×2 (04:12→17:24)
[2020-10-13] MEDS: Morphine Sulfate 2 MG/ML CARTRIDGE IVPUSH ×2 (04:30→22:25)
[2020-10-13] MEDS: Insulin Lispro 100 UNIT/ML 3 ML VIAL SUBCUT ×2 (04:52→17:24)
[2020-10-13] MEDS: Metoprolol Tartrate 5 MG/5 ML VIAL IVPUSH (05:45)
--- NOTE | 2020-10-13 06:19 | PM.EVENT ---
Event Note Date of Service: 10/13/20 Event Note: Pt respiratory status declining. Currently sating 86-90% on 100% high flow, and non-rebreather. with RR in the 30s. pt is also in afib with RVR in the 120s.; Received morphine and lopressor. BP dropped to 90s/60s, pt also agitated pulling at his respiratory mask. Spoke to ICU veterinary surgery technician. ABG ordered.
--- NOTE | 2020-10-13 07:23 | PM.EVENT ---
Event Note Date of Service: 10/13/20 Event Note: I?m following Mr. Barboza at the request of Dr. Zaragoza. The patient is on IMC with hypoxemic respiratory failure 2? COVID pneumonia, with altered mental status. See my extended note from Oct 07. I?ve seen the patient up on IMC every day since Oct 07 except for yesterday. He had been strikingly delirious every day until Wednesday, on which day, almost miraculously, his mental status was just about completely normal. He was normally responsive to questions that day, and asking for food and drink. Dr. Zaragoza told me that he gave the patient no special medication or other treatment, other than withholding all ASSOCIATE PROFESSOR OF MUSICOLOGY meds. I was called early this morning to see him by Dr. Horace garcia of hypoxemia. The nurse tells me that he became delirious again. She told me that he?s gotten Haldol and Ativan over the last day, and she thought that the Haldol 2mg worked well for him. On my exam this morning, he?s lying completely flat in bed. He?s breathing easy on high-flow nasal cannula 60 L/100%, with a non-rebreather face mask, with a RR of about 28, with no access musc use, and no increase in work of breathing, other than that attributable to his respiratory rate. Sat is 95%. Arterial blood gas this morning on 100% FiO2 shows 7.48/24/61/4. COVID BIOMARKERS: D-dimer 3111. IMPRESSION: 1. Acute hypoxemic respiratory failure in a 80-year-old very high risk gentleman due to typical progression of COVID 19 pneumonia. Requiring more FiO2 this morning. 2. Delirium. Was better Wednesday, now recurrent delirium. Not clear why. Could be secondary to COVID. Recommend continuing daily DDimer, Ferritin, and CRP, and continue the bid Lovenox, solumedrol, and Pepcid, until FiO2 comes down. Safe to stay on IMC for now. Time: [id number]
[2020-10-13 07:38] LABS: Glucose, Whole Blood 189 mg/dL (60-115)
[2020-10-13 07:39] LABS: ABG PCO2 24 mmhg (32-45); Base Excess ABG -4.4; Blood Gas Serial # 5414; HCO3 ABG 18 mmol/l (22-26); Oxygen Saturation ABG 91.2 %; PO2 ABG 61 mmhg (83-108); Pt Ventilation O2% 100%; pH ABG 7.48 (7.35-7.45)
[2020-10-13] MEDS: Famotidine/PF 20 MG/2 ML VIAL IVPUSH (08:07)
--- NOTE | 2020-10-13 08:19 | PC.NURSE ---
p - pt restless, pulling @ IV lines, trying to pull at iv port, f/c and leads despite sitter and medication of Ativan IV and Morphine IV, went into STach 130's - 150's SVT I - call to Dr. Vu and EKG done to r/o afib but very uncooperative and extreme artifact noted. Dr. Vu over to see pt and bilat soft wrist restraints ordered & applied @ 0621 with vital sx 98.0, 110 hr, rr 32 bp 99/61 (s/p lopressor 5mg iv) given . Dr. [facility] before signing restraint sheet, Dr. Choi signed on her behalf @ 8985. e - next shift will continue to monitor and restraint soft limb nonbehavioral protocol/care flow sheet in place.
--- NOTE | 2020-10-13 08:55 | P.PNIM_ITS ---
Subjective Subjective Date of Service: 10/13/20 Interval History: F/u on acute hypoxemic respiratory failure from covid, he remains very hypxic and on high flwo 100% with NRB. He became very agitated, combative, restless and pulling tubes this morning and out of abundance of cautious for his safety and safety of staff and in an effort to limit potential spread of covid.. Physical restrain was initiated when medication had no effect. ICU evaluated yet again but not accepted at this time..Multiple effort made by previous shift and myself to reach out to HCP without any success. He seems a bit more calm at moment and has a sitter as well. Physical Exam Vital Signs: Vital Signs: Last Vital Signs Temp 97.9 F 10/12/20 23:53 Pulse 153 H 10/13/20 05:45 Resp 20 10/13/20 07:28 BP 121/88 10/13/20 05:45 Pulse Ox 92 10/13/20 04:00 Body Mass Index 21.9 General: Agitated, confused, Resp: presently wit normal respiratory effort CVS: regular on monitor GI: +soft, no sing of tenderness Skin: No rash Neuro: moves all extremities freely Psych: flat affect Objective Data Current Medications Generic Name Dose Route Start Last Admin Trade Name Freq PRN Reason Stop Dose Admin Acetaminophen 650 mg 09/30/20 15:19 Acetaminophen 325 Mg Tablet PO Q6H PRN Pain, Mild (Pain Scale 1-3) Benzocaine 1 lozenge 10/01/20 11:45 Throat Lozenge, Medicated Lozenge MUCOUS MEM Q2H PRN Sore Throat Dextrose 25 gm 10/09/20 17:10 Dextrose 50 % 25 Gm/50 Ml Vial IVPUSH ONCE PRN BS < 100 Enoxaparin Sodium 35 mg 10/08/20 12:00 10/13/20 00:08 Enoxaparin Sodium 60 Mg/0.6 Ml Syringe SUBCUT 35 mg Q12H JEROD Administration Famotidine 20 mg 10/07/20 21:00 10/13/20 08:07 Famotidine/Pf 20 Mg/2 Ml Vial IVPUSH 20 mg BID JEROD Administration Thiamine HCl 200 mg/ Sodium 102 mls @ 204 mls/hr 10/07/20 16:45 10/13/20 06:38 Chloride IV Infused Q12H [facility] Infusion Doxycycline Hyclate 100 mg/ 250 mls @ 166.67 mls/hr 10/09/20 05:00 10/13/20 06:37 Sodium Chloride IV Infused Q12H [facility] Infusion Potassium Chloride 20 meq/ 2,040 mls @ 85 mls/hr 10/12/20 18:00 10/13/20 06:41 Sodium Chloride 20 meq/ IVCONT 10/13/20 17:59 85 mls/hr Magnesium Sulfate 16 meq/ DAILY@1800 JEROD Infusion Potassium Phosphate 40 mmol/ Calcium Gluconate 9.3 meq/ Multivitamins 10 ml/ Trace Metals 1 ml/ Amino Acids/ Dextrose Insulin Human Lispro 0 unit 10/13/20 04:45 10/13/20 04:52 Insulin Lispro 100 Unit/Ml 3 Ml Vial SUBCUT 8 unit Q6H [facility] Administration Protocol Lidocaine/Diphenhydr/Alum/Mg/Simeth 10 ml 09/30/20 18:15 10/13/20 08:07 Mag&Al/Sim/Diphenhyd/Lidocaine 10 Ml Oral.Susp PO Not Given Q6H [facility] Protocol Lorazepam 1 mg 10/12/20 12:33 10/13/20 03:50 Lorazepam 2 Mg/Ml Vial IVPUSH 1 mg Q6H PRN Administration Anxiety Methylprednisolone Sodium Succinate 40 mg 10/07/20 17:00 10/13/20 04:13 Methylprednisolone Sod Succ/Pf 40 Mg/Ml Vial IVPUSH 40 mg Q12H [facility] Administration Ondansetron HCl 4 mg 09/30/20 15:19 Ondansetron Hcl 4 Mg/2 Ml Vial IVPUSH Q8H PRN Nausea and Vomiting Pharmacy Consult 1 each 09/30/20 11:28 Consult Rx Perform Med Rec MISCELLANE ONCE PRN Consult order Sodium Chloride 3 ml 09/30/20 16:00 10/13/20 08:08 0.9 % Sodium Chloride Flush 3 Ml Syringe IVFLUSH 3 ml QSHIFT [facility] Administration Trazodone HCl 25 mg 10/02/20 22:11 10/11/20 23:54 Trazodone Hcl 25 Mg Halftab PO 25 mg BEDTIME PRN Administration Insomnia Labs CBC & Chem 7: 10/12/20 05:58 10/12/20 05:58 Microbiology Microbiology Results: Microbiology 09/30/20 10:48 Blood - Venous Blood Culture - Final No growth after 5 days. 09/30/20 10:39 Blood - Venous Blood Culture - Final No growth after 5 days. Assessment and Plan (1) Encephalopathy: Problem details: ? encephalitis due to covid. Seems to be doing better today. Status: Acute (2) Hypernatremia: Status: Acute (3) Sepsis: Status: Acute (4) Pneumonia: Problem details: Be repeating a chest x-ray Continue to decrease high-flow Status: Acute Assessment and Plan: 80/m with HTN, HLD, history of colon cancer, depression here with 1. Sepsis due to COVID-19/pneumonia with severe acute respirator failure and hypoxia presently in late pulmonary phase. He tested positive more than 2 weeks ago on Sep 30, 2020 - s/p Convalescent plasma x 2 -He remains on high flow O2 with NRB with no progress -continue O2 -Finish course of solumedrol -ID, ICU and pulmonary have seen him -cultures have been negative -Finish course of empiric Doxy for no more than 10 days 2. Acute toxic and metabolic encephalopathy of multifactorial etiolog inclduing covid, dementia, sundowning -improving, avoid sedative, haldol/ativan PRN for agitation 3.Metabolic acidosis--resolved Hypenatremia--resolved 4. History of hypertension: Blood pressure is controlled. 5. Diabetes mellitus--insulin hold metformin and dulaglutide that he takes at home 6. initially Neutropenic fever likely related to COVID-19 infection as well chemotherapy. WBC improved to 2.6 -received granix . received 2 days on granix 300mcg sc daily . 7. Leukocytosis--likely from steroid and grabnix, trending down 8. FTT, moderate protein malnutrition, he is refusing to eat. On TPN, and should be considered for PEG if family wishsed to continue Overall prognosis is poor and care has been discussed with family and on last conversation they wanted everything done. I reached out to Mario Joshi [phone]--KSS, no answer
--- NOTE | 2020-10-13 09:43 | W.MHC.ACPN ---
Advanced Care Planning Note Advanced Care Planning Note Time spent (in minutes): 10 Narrative: Goal of cares discussed with family, health care proxy Gnosticist, (via Lionel elizalde). I updated them all clinical course and poor prognosis and they want to proceed with all options. Problems Discussed (1) Encephalopathy: (2) Hypernatremia: (3) Sepsis: (4) Pneumonia:
[2020-10-13] MEDS: 0.9 % Sodium Chloride 1,000 ML 999 ML IVCONT (10:11)
[2020-10-13 10:48] LABS: Glucose, Whole Blood 166 mg/dL (60-115)
[2020-10-13 11:22] LABS: Glucose, Whole Blood 169 mg/dL (60-115)
--- NOTE | 2020-10-13 11:33 | PC.NURSE ---
pt appearing to be more calm, not pulling at 02 tubing as often. 02 92-94% via high flow with non-rebreather mask. lungs dimininished on auscultation, rr 30-35. skin color pale, extremities cool to touch. md at bedside to assess pt. soft limb restraints discontinued. b/p 90/48 and SR on tele. 1,000 ml NS bolus ordered. follow up b/p improved. arousable to tactile and verbal stimulation. opens eyes to name, but not able to respond verbally. declines anything po. buttucks red/blanchable. repositioned q 2 hours to maintain skin integrity. family updated on pt's status my MD, wishes pt to remain full code.
--- NOTE | 2020-10-13 16:20 | W.MHC.ACPN ---
Advanced Care Planning Note Advanced Care Planning Note Discussed with: family member(s) (, grandsons Delio and Yazidism) Narrative: Following multiple conversation with family ( and grandsons Delio and Yazidism) and explaining the patient's dire condition and them seeing via video conferencing, they have agreed on DNR/DNI..Nurse Worthington was part of these conversation. coversation time in agregate 25 minutes Problems Discussed (1) Encephalopathy: (2) Hypernatremia: (3) Sepsis: (4) Pneumonia:
[2020-10-13 17:04] LABS: Glucose, Whole Blood 382 mg/dL (60-115)
--- NOTE | 2020-10-13 19:57 | PC.NURSE ---
per conversation involving pt's family via ipad and photostat operator helper along with Hospitalist, pt is to become comfort measures only effective tonight.
--- NOTE | 2020-10-13 20:14 | PM.EVENT ---
Event Note Date of Service: 10/13/20 Event Note: Following an in person visit by patient's on compassion visit and further discussion via lease broker and answering all questions, with fide Kebede joining by video conference, they have have to concclusion to proceed with comfort measures only and it was it explained that patient will be given medication such as morphine, ativan and Haldol medication and will discontinued all other medication that will not make a difference at this point including TPN and only provide enough oxygen for comfort as it no longer makes sense to maintain high flow Oxygen on top of NRB. They understand these time to be final stages of life and maybe imminent Conversation was witnessed by NADEGE Worthington. Wafer Polishing Worker was used and Delio elizalde joined by video conference.
[2020-10-14] VITALS: RESP 20
[2020-10-14 00:48] VITALS: PULSE 81; RESP 22; O2SAT 96
--- NOTE | 2020-10-14 02:11 | PC.NURSE ---
PT CONTINUES TO PULL OFF MARKETING MANAGER HEALTH COMMUNICATIONS AND O2 MONITOR. NOTIFIED. OK TO REMOVE MONITORS PT IS NOW PRINT FINISHER. PT GIVEN IV MORPHINE FOR RESTLESSNESS WITH GOOD EFFECT. WILL CONTINUE TO MONITOR.
[2020-10-14 03:22] VITALS: RESP 20
[2020-10-14 04:18] VITALS: PULSE 89; RESP 18; O2SAT 85
[2020-10-14] MEDS: LORazepam 2 MG/ML VIAL 1 MG IVPUSH ×2 (07:25→11:49)
[2020-10-14] MEDS: 0.9 % Sodium Chloride Flush 3 ML SYRINGE IVFLUSH ×2 (07:26→16:29)
[2020-10-14 08:00] VITALS: RESP 20
[2020-10-14] MEDS: Morphine Sulfate 2 MG/ML CARTRIDGE IVPUSH ×5 (09:53→16:29)
--- NOTE | 2020-10-14 11:47 | MHC.SLORD ---
[address] [address] Speech & Hearing [phone] Name: Lee Barboza Date of : 1940 Age: 80 Date of Registration: 09/30/20 Per RN report, pt is now comfort measures only and is no longer appropriate for dysphagia therapy. Speech Language Pathology Order Status:
--- NOTE | 2020-10-14 12:53 | MHC.CM.PN ---
CM attempting to contact pts family. the only phone number on file for pts family members is [phone]. A VM message was left at that number requesting a return call. CM called Helga at [facility] who also had the same number on file and reported she did not have contact information for pts grandson Lionel. CM will try to reach them again later in the day. Goal of call is to discuss DC plans.
--- NOTE | 2020-10-14 12:57 | MHC.CM.PN ---
CM received a call back from pts Mario WINSTON ([phone]) who reports he spoke with pts and the plan is for pt to go onto hospice services. CM explained that they would need to determine where pt would receive these services. Mario reports they did not realize the pt could go home or to SNF. He will call pts and then they will call CM back to discuss this further
--- NOTE | 2020-10-14 13:22 | PC.NURSE ---
1000 Comfort measures maintained. 02 adjusted to 2lL via N/C by respiratory. Medicated with PRN ativan and Morphine for comfort.
--- NOTE | 2020-10-14 13:24 | PC.NURSE ---
1315 resting with eyes closed. No restlessness at this time.
--- NOTE | 2020-10-14 13:26 | MHC.CLN ---
F/U PO INTAKE CONTINUES TO BE ZERO COMMUNITY DEVELOPMENT DIRECTOR RECOMMENDED PUREED CONSISTENCY PT WAS RECEIVING TPN-NOW D/C PT IS FURNITURE RENTAL CONSULTANT RECOMMEND FEED FROM FLOOR DIET WILL FOLLOW WITH CARE TEAM AND PROVIDE SUPPORT NEEDED
--- NOTE | 2020-10-14 14:33 | HO.PM.IMPN ---
Subjective Subjective Date of Service: 10/14/20 Interval History: patient in seen in follow up for sepsis due to COVID-19 pneumonia with acute respiratory failure and hypoxia patient made POTATO GRADER last night. Review of Systems Unable to obtain review of system since patient resting in bed comfortably after receiving morphine and Ativan Physical Exam Vital Signs: Vital Signs: Last Vital Signs Temp 97.6 F 10/13/20 15:49 Pulse 101 H 10/13/20 15:49 Resp 20 10/14/20 08:00 BP 123/56 L 10/13/20 15:49 Pulse Ox 99 10/13/20 15:49 Body Mass Index 21.9 patient resting comfortably in no distress neck is supple Respiratory no distress CVS regular rate Abdomen soft, nondistended extremities no edema Objective Data Current Medications Generic Name Dose Route Start Last Admin Trade Name Freq PRN Reason Stop Dose Admin Acetaminophen 650 mg 09/30/20 15:19 Acetaminophen 325 Mg Tablet PO Q6H PRN Pain, Mild (Pain Scale 1-3) Benzocaine 1 lozenge 10/01/20 11:45 Throat Lozenge, Medicated Lozenge MUCOUS MEM Q2H PRN Sore Throat Dextrose 25 gm 10/09/20 17:10 Dextrose 50 % 25 Gm/50 Ml Vial IVPUSH ONCE PRN BS < 100 Haloperidol Lactate 0.5 mg 10/13/20 20:08 Haloperidol Lactate 10 Mg/5 Ml Oral.Conc PO Q4H PRN Anxiety/Restlessness/Delirium Lorazepam 1 mg 10/13/20 19:42 10/14/20 11:49 Lorazepam 2 Mg/Ml Vial IVPUSH 1 mg Q4H PRN Administration anxiety/restlessness Morphine Sulfate 2 mg 10/13/20 20:04 10/14/20 14:13 Morphine Sulfate 2 Mg/Ml Cartridge IVPUSH 2 mg Q1H PRN Administration pain, confort and distress Ondansetron HCl 4 mg 10/13/20 19:32 Ondansetron Hcl 4 Mg/2 Ml Vial IVPUSH Q8H PRN Nausea and Vomiting Sodium Chloride 3 ml 09/30/20 16:00 10/14/20 07:26 0.9 % Sodium Chloride Flush 3 Ml Syringe IVFLUSH 3 ml QSHIFT JER[facility] Administration Labs CBC & Chem 7: 10/12/20 05:58 10/12/20 05:58 Microbiology Microbiology Results: Microbiology 09/30/20 10:48 Blood - Venous Blood Culture - Final No growth after 5 days. 09/30/20 10:39 Blood - Venous Blood Culture - Final No growth after 5 days. Assessment and Plan (1) Encephalopathy: Problem details: ? encephalitis due to covid. Seems to be doing better today. Status: Acute (2) Acute respiratory failure with hypoxia: Problem details: severe with extensive GGO Status: Acute (3) COVID-19: Status: Acute (4) Neutropenia with fever: Status: Acute (5) COVID-19 virus infection: Status: Acute (6) Sepsis: Status: Acute (7) Pneumonia: Problem details: Be repeating a chest x-ray Continue to decrease high-flow Status: Acute (8) Colon cancer metastasized to liver: Status: Acute (9) Hypernatremia: Status: Acute (10) High anion gap metabolic acidosis: Status: Acute Assessment and Plan: 80/m with HTN, HLD, history of colon cancer, depression admitted with 1. Sepsis due to COVID-19/pneumonia , neutropenia,with severe acute respirator failure and hypoxia patient also developed acute toxic metabolic encephalopathy, metabolic acidosis, hypernatremia, with moderate protein calorie malnutrition, patient initially treated aggressively with convalescent plasma, IV steroids his cultures remain negative,but due to persistent symptoms of encephalopathy, hypoxia with overall poor prognosis with a backdrop of colon cancer case was discussed with patient's family including son and healthcare proxy and was decided to make patient POTATO GRADER, currently patient is being managed with Ativan and morphine appears to be comfortable group social worker are working for safe disposition.
[2020-10-14 16:29] VITALS: RESP 26
--- NOTE | 2020-10-14 18:20 | PM.EVENT ---
Event Note Date of Service: 10/14/20 Event Note: call my nurse to inform the patient has no pulse and no breathing patient at 06:10 p.m. found to have fixed dilated pupils, no pulse, no respirations, patient pronounced ,notified HCP Mario Joshi.
--- NOTE | 2020-10-14 18:23 | PM.DS ---
DS: Providers Provider Date of admission: 09/30/20 12:38 Primary care physician: None Physician Consults: 09/30/20 15:19 Consult to Infectious Diseases Routine Consulting Provider: Hali Rea Reason for consultation: covid 19 neutopenic fever 10/04/20 15:18 Consult to Nephrology Routine Consulting Provider: Stephen Cortez Reason for consultation: metabolic acidodis Has provider been notified: No 10/05/20 09:00 Consult to Nephrology Routine Consulting Provider: Jere Vizcarra Reason for consultation: anion gap metabolic acidosis /unclear etiology 10/05/20 11:23 Consult to Pulmonology Routine Consulting Provider: Nick Conley Reason for consultation: Acute hypoxemic resp failure(lobar pneumonia),metabolic ?starvation acidosi Has provider been notified: No DS: Diagnosis Discharge Diagnosis (1) Encephalopathy: Status: Acute Problem details: ? encephalitis due to covid. Seems to be doing better today. (2) Acute respiratory failure with hypoxia: Status: Acute Problem details: severe with extensive GGO (3) COVID-19: Status: Acute (4) Neutropenia with fever: Status: Acute (5) COVID-19 virus infection: Status: Acute (6) Sepsis: Status: Acute (7) Pneumonia: Status: Acute Problem details: Be repeating a chest x-ray Continue to decrease high-flow (8) Colon cancer metastasized to liver: Status: Acute (9) Hypernatremia: Status: Acute (10) High anion gap metabolic acidosis: Status: Acute DS: Medications Discharge Medications Home Medications: Home Medications Medication Instructions Recorded Confirmed aspirin 81 mg PO DAILY 08/13/20 09/30/20 atorvastatin 80 mg PO BEDTIME 08/13/20 09/30/20 dexamethasone 4 mg PO BID 08/13/20 09/30/20 dulaglutide 1.5 mg SUBCUT MO@1000 08/13/20 09/30/20 melatonin 5 mg PO BEDTIME PRN 08/13/20 09/30/20 metformin 1,000 mg PO BIDWM 08/13/20 09/30/20 ondansetron 8 mg PO Q8H PRN 08/13/20 09/30/20 sertraline 100 mg PO DAILY 08/13/20 09/30/20 tamsulosin 0.4 mg PO QPM 08/13/20 09/30/20 esomeprazole magnesium 40 mg PO DAILY 09/30/20 09/30/20 hydrochlorothiazide 12.5 mg PO QAM 09/30/20 09/30/20 losartan 50 mg PO DAILY 09/30/20 09/30/20 DS: Summary Hospital Course Hospital Course: history of presenting illness 80-year-old gentleman with past medical history significant for metastatic colon cancer, currently receiving chemotherapy under care of Dr. Christin Barnes. The patient was brought in to [facility] since he was too weak to get out of bed and go for his scheduled chemo treatment today. Most of the history is obtained by patient's grandson through phone since patient is unable to provide a detailed history. According to the grandson, patient has been complaining of on and off sore throat for last several weeks since chemotherapy was started. He is also suffering with dry cough. This morning, the patient was very weak, confused at home, unable to get out of bed. He was very lethargic, so therefore family called the ambulance and the patient was brought into the ER. In the emergency room, the patient initially was very lethargic, confused, unable to provide detailed history, although he did complain of sore throat. His workup revealed a WBC count of 0.9 with an ANC of 0.3. He had a hematocrit of 28.7. Chem profile with sodium of 131. His kidney function was stable. His lactic acid was elevated at 2.2. He was febrile with a temperature of 103. He was also tachycardic and a chest x-ray revealed a questionable left lung base infiltrate. A CT head showed no acute abnormality. The patient was diagnosed to have sepsis related to pneumonia. Later, a COVID-19 test also came back positive. The patient is now being admitted to [facility] with sepsis related to COVID-19 infection and pneumonia. Patient currently is receiving IV fluids. PAST MEDICAL HISTORY: Significant for: 1. Colon cancer status post resection diagnosed in 2013. 2. History of hyperlipidemia. 3. History of hypertension. 4. History of diabetes mellitus. 5. History of depression. hospital course 80-year-old gentleman with past medical history significant for metastatic colon cancer was admitted to [facility] due to COVID-19 infection pneumonia and sepsis patient was also found to be neutropenic patient was treated aggressively with IV antibiotic, convalescent plasma and high-flow oxygen subsequently patient was noted to be confused due to multiple comorbidities and poor response to treatment it was decided to make patient [employer] on 10/13/2020 after discussing with healthcare proxy jainlorne aj and patient was placed on IV morphine and Ativan. Patient was found to have no pulse and no breathing at 18:10 p.m. and patient was pronounced since found to have dilated pupils no respiratory rate and no pulse family notified. Time Spent with Patient Time attestation: Total time spent providing and/or coordinating discharge services: Physical Exam Vital Signs: Vital Signs: Last Vital Signs Temp 97.6 F 10/13/20 15:49 Pulse 101 H 10/13/20 15:49 Resp 26 H 10/14/20 16:29 BP 123/56 L 10/13/20 15:49 Pulse Ox 99 10/13/20 15:49 Body Mass Index 21.9 DS: Data Data Completed and Pending Labs on day of discharge: 09/30/20 08:54 XR chest 1V Stat 0.9 % Sodium Chloride [Ns] 2,079 ml IVCONT 2,079 mls/hr 09/30/20 08:57 Vital Signs Q30M 09/30/20 09:02 Metoclopramide HCl [Reglan] 10 mg IVPUSH ONCE ONE 09/30/20 09:30 Acetaminophen [Tylenol] 975 mg PO ONCE ONE 09/30/20 09:38 CT head/brain wo con Stat 09/30/20 09:44 Piperacillin Sodium/Tazobactam [Zosyn] 4.5 gm 0.9 % Sodium Chloride [Ns] 100 ml IV ONCE 09/30/20 09:45 vancomycin HCL 1,500 mg 0.9 % Sodium Chloride [Ns] 250 ml IV ONCE 09/30/20 09:48 Mag&Al/Sim/Diphenhyd/Lidocaine [Magic Mouthwash] 10 ml PO ONCE ONE 09/30/20 09:53 Basic Metabolic Panel Stat Liver Panel Stat 09/30/20 09:54 Complete Blood Count Auto Diff Stat Lactic Acid Stat SARS-CoV2/FLU/RSV Stat SLIDE REVIEW Stat 09/30/20 09:56 Partial Thromboplastin Time Stat Prothrombin Time INR Stat 09/30/20 10:48 Blood Culture X2 [BC] Stat 09/30/20 10:52 Piperacillin Sodium/Tazobactam [Zosyn] 4.5 gm IV .STK-MED ONE 09/30/20 11:28 Consult Rx Perform Med Rec 1 each MISCELLANE ONCE PRN 09/30/20 11:30 vancomycin HCL 750 mg IV .STK-MED ONE 09/30/20 11:53 0.9 % Sodium Chloride [Ns] 1,000 ml IV 999 mls/hr 09/30/20 12:26 Transfer Order Routine 09/30/20 12:27 Code Status Routine 09/30/20 12:45 Piperacillin Sodium/Tazobactam [Zosyn] 3.375 gm 0.9 % Sodium Chloride [Ns] 50 ml IV Q6H 09/30/20 13:25 ~Lactic Acid-LAB USE ONLY Stat 09/30/20 15:19 0.9 % Sodium Chloride [Ns] 1,000 ml IVCONT 100 mls/hr ondansetron HCL [Zofran] 4 mg IVPUSH Q8H PRN 09/30/20 15:19 Compression Therapy QSHIFT Cont. Telemetry w/Vital Sign limit Q4HR IV insert/maintain Q4HR Intake and Output QSHIFTE Vital Signs Q4HR 09/30/20 Lunch Regular Diet 09/30/20 17:00 Tamsulosin HCL [Flomax] 0.4 mg PO DAILY@1700 09/30/20 18:06 Glucose, blood poc Q4H 09/30/20 18:12 Piperacillin Sodium/Tazobactam [Zosyn] 3.375 gm IV .STK-MED ONE 09/30/20 18:15 Mag&Al/Sim/Diphenhyd/Lidocaine [Magic Mouthwash] 10 ml PO Q6H 09/30/20 18:33 Glucose, Whole Blood Routine 09/30/20 Dinner Diabetic Diet 09/30/20 20:44 Glucose, Whole Blood Routine 09/30/20 21:00 Insulin Lispro [Humalog] See Protocol SUBCUT QIDACHS dexAMETHasone [Decadron] 4 mg PO BID 10/01/20 00:35 Piperacillin Sodium/Tazobactam [Zosyn] 3.375 gm IV .STK-MED ONE 10/01/20 05:48 Basic Metabolic Panel DAILY@0600 Complete Blood Count Man Dif Routine 10/01/20 05:51 Piperacillin Sodium/Tazobactam [Zosyn] 3.375 gm IV .STK-MED ONE 10/01/20 07:22 Glucose, Whole Blood Routine 10/01/20 09:00 Sertraline HCL [Zoloft] 100 mg PO DAILY 10/01/20 11:36 Glucose, Whole Blood Routine 10/01/20 11:45 Legionella Ag Urine Routine 10/01/20 11:55 vancomycin HCL 500 mg IV .STK-MED ONE 10/01/20 12:00 vancomycin HCL 1,000 mg vancomycin HCL 500 mg 0.9 % Sodium Chloride [Ns] 250 ml IV Q24H 10/01/20 12:45 Tbo-Filgrastim [Granix] 300 mcg SUBCUT DAILY 10/01/20 14:02 Piperacillin Sodium/Tazobactam [Zosyn] 3.375 gm IV .STK-MED ONE 10/01/20 15:19 Doxycycline Hyclate [Vibramycin] 100 mg IV .STK-MED ONE 10/01/20 Lunch Diabetic Diet 10/01/20 16:00 Doxycycline Hyclate [Vibramycin] 100 mg 0.9 % Sodium Chloride [Ns] 250 ml IV Q12H 10/01/20 16:33 Glucose, Whole Blood Routine 10/01/20 17:57 Vancomycin Trough Routine 10/01/20 18:06 Piperacillin Sodium/Tazobactam [Zosyn] 3.375 gm IV .STK-MED ONE 10/01/20 20:30 Glucose, Whole Blood Routine 10/01/20 23:39 vancomycin HCL 1,000 mg .ROUTE .STK-MED ONE 10/02/20 00:00 vancomycin HCL 1,000 mg 0.9 % Sodium Chloride [Ns] 250 ml IV Q12H 10/02/20 01:15 Piperacillin Sodium/Tazobactam [Zosyn] 3.375 gm IV .STK-MED ONE 10/02/20 04:32 Doxycycline Hyclate [Vibramycin] 100 mg IV .STK-MED ONE 10/02/20 05:29 Basic Metabolic Panel Routine Complete Blood Count Man Dif Routine 10/02/20 06:48 Piperacillin Sodium/Tazobactam [Zosyn] 3.375 gm IV .STK-MED ONE 10/02/20 08:09 Glucose, Whole Blood Routine 10/02/20 11:04 Vancomycin Random Routine 10/02/20 11:44 Glucose, Whole Blood Routine 10/02/20 11:48 Piperacillin Sodium/Tazobactam [Zosyn] 3.375 gm IV .STK-MED ONE 10/02/20 12:00 vancomycin HCL 1,000 mg vancomycin HCL 500 mg 0.9 % Sodium Chloride [Ns] 250 ml IV Q24H 10/02/20 12:55 vancomycin HCL 1,000 mg .ROUTE .STK-MED ONE 10/02/20 15:58 Doxycycline Hyclate [Vibramycin] 100 mg IV .STK-MED ONE 10/02/20 16:11 Glucose, Whole Blood Routine 10/02/20 18:48 Piperacillin Sodium/Tazobactam [Zosyn] 3.375 gm IV .STK-MED ONE 10/02/20 20:19 Glucose, Whole Blood Routine 10/02/20 22:11 traZODone HCL [Desyrel] 25 mg PO BEDTIME PRN 10/03/20 00:08 Piperacillin Sodium/Tazobactam [Zosyn] 3.375 gm IV .STK-MED ONE 10/03/20 03:39 Doxycycline Hyclate [Vibramycin] 100 mg IV .STK-MED ONE 10/03/20 05:32 hydrOXYzine HCL [Atarax] 25 mg PO ONCE ONE traZODone HCL [Desyrel] 25 mg PO ONCE ONE 10/03/20 05:56 Piperacillin Sodium/Tazobactam [Zosyn] 3.375 gm IV .STK-MED ONE 10/03/20 06:06 diphenhydrAMINE HCL [Benadryl] 25 mg IVPUSH ONCE ONE 10/03/20 07:46 Glucose, Whole Blood Routine 10/03/20 10:05 Basic Metabolic Panel Routine 10/03/20 12:30 Piperacillin Sodium/Tazobactam [Zosyn] 3.375 gm IV .STK-MED ONE 10/03/20 14:45 0.9 % Sodium Chloride [Ns] 1,000 ml IVCONT 80 mls/hr 10/03/20 14:47 Doxycycline Hyclate [Vibramycin] 100 mg IV .STK-MED ONE 10/03/20 15:09 Basic Metabolic Panel Routine Complete Blood Count Man Dif Routine 10/03/20 16:20 Glucose, Whole Blood Routine 10/03/20 18:10 Piperacillin Sodium/Tazobactam [Zosyn] 3.375 gm IV .STK-MED ONE 10/03/20 19:54 Glucose, Whole Blood Routine 10/04/20 00:34 Piperacillin Sodium/Tazobactam [Zosyn] 3.375 gm IV .STK-MED ONE 10/04/20 04:32 Doxycycline Hyclate [Vibramycin] 100 mg IV .STK-MED ONE 10/04/20 05:39 Basic Metabolic Panel Routine 10/04/20 06:03 Complete Blood Count Man Dif Routine 10/04/20 06:06 Piperacillin Sodium/Tazobactam [Zosyn] 3.375 gm IV .STK-MED ONE 10/04/20 07:37 Glucose, Whole Blood Routine 10/04/20 10:22 Glucose, Whole Blood Routine 10/04/20 11:15 Glucose, Whole Blood Routine 10/04/20 13:58 Piperacillin Sodium/Tazobactam [Zosyn] 3.375 gm IV .STK-MED ONE 10/04/20 14:32 Glucose, Whole Blood Routine 10/04/20 14:45 Dextrose 5 % and 0.45 % NaCl [D51/2Ns] 1,000 ml IVCONT 100 mls/hr 10/04/20 15:12 LORazepam [Ativan] 2 mg .ROUTE .STK-MED ONE 10/04/20 15:19 LORazepam [Ativan] 0.5 mg IVPUSH ONCE ONE 10/04/20 15:33 LORazepam [Ativan] 0.5 mg IVPUSH STAT STA 10/04/20 15:35 Acetone, serum QL Stat Basic Metabolic Panel Stat Lactic Acid Stat 10/04/20 15:54 Doxycycline Hyclate [Vibramycin] 100 mg IV .STK-MED ONE 10/04/20 16:10 Glucose, Whole Blood Routine 10/04/20 17:28 Piperacillin Sodium/Tazobactam [Zosyn] 3.375 gm IV .STK-MED ONE 10/04/20 17:42 LORazepam [Ativan] 0.5 mg PO Q4H PRN 10/04/20 17:45 KCl 20 mEq in 0.45% Sod 20 meq in 1,000 ml IVCONT 100 mls/hr 10/04/20 18:21 ~Lactic Acid-LAB USE ONLY Stat 10/04/20 20:47 Glucose, Whole Blood Routine 10/05/20 CT angio chest PE protocol Stat XR chest 1V Urgent US venous duplex LE BI Stat 10/05/20 00:13 Piperacillin Sodium/Tazobactam [Zosyn] 3.375 gm IV .STK-MED ONE 10/05/20 04:09 Doxycycline Hyclate [Vibramycin] 100 mg IV .STK-MED ONE 10/05/20 05:36 Piperacillin Sodium/Tazobactam [Zosyn] 3.375 gm IV .STK-MED ONE 10/05/20 06:11 Basic Metabolic Panel DAILY@0600 Complete Blood Count no Diff DAILY@0600 10/05/20 07:51 Glucose, Whole Blood Routine 10/05/20 10:39 Albumin Level Stat Magnesium Stat Phosphorus Stat Triglycerides Routine 10/05/20 10:48 ABG (RT) ONCE 10/05/20 11:00 Arterial Blood Gas Routine 10/05/20 11:20 Glucose, Whole Blood Routine 10/05/20 11:58 Morphine Sulfate 0.5 mg IVPUSH ONCE ONE 10/05/20 12:27 LORazepam [Ativan] 0.25 mg IVPUSH ONCE ONE 10/05/20 12:32 LORazepam [Ativan] 0.5 mg IM ONCE ONE 10/05/20 13:35 LORazepam [Ativan] 1 mg IVPUSH ONCE ONE 10/05/20 13:36 Cont. Telemetry w/Vital Sign limit Q4HR 10/05/20 13:50 Piperacillin Sodium/Tazobactam [Zosyn] 3.375 gm IV .STK-MED ONE 10/05/20 15:21 High Flow CONT 10/05/20 16:36 Glucose, Whole Blood Routine 10/05/20 16:45 Doxycycline Hyclate [Vibramycin] 100 mg IV .STK-MED ONE 10/05/20 16:50 Doxycycline Hyclate [Vibramycin] 100 mg IV .STK-MED ONE 10/05/20 18:00 Furosemide [Lasix] 20 mg IVPUSH BID@0900,1800 MVI, Adult [Infuvite Adult] 18.9 ml Trace Elements w/o chromium [Tralement] 1.9 ml AA 4.25%/Calcium/Lytes/Dex 10% [Clinimix E 4.25%-10%] 2,000 ml IV DAILY@1800 10/05/20 18:52 Furosemide [Lasix] 20 mg IVPUSH STAT STA 10/05/20 19:29 Piperacillin Sodium/Tazobactam [Zosyn] 3.375 gm IV .STK-MED ONE 10/05/20 21:12 Glucose, Whole Blood Routine 10/05/20 21:17 iohexoL 350 MG/ML [Omnipaque 350 MG/ML] 100 ml IV ONCE ONE 10/05/20 21:19 LORazepam [Ativan] 0.5 mg IVPUSH ONCE ONE 10/05/20 22:53 Morphine Sulfate 1 mg IVPUSH ONCE ONE 10/05/20 23:00 Heparin Sodium,Porcine 5,000 unit SUBCUT Q8H 10/06/20 00:27 Vital Signs Q4HR 10/06/20 00:45 Piperacillin Sodium/Tazobactam [Zosyn] 3.375 gm IV .STK-MED ONE 10/06/20 03:19 Doxycycline Hyclate [Vibramycin] 100 mg IV .STK-MED ONE 10/06/20 05:48 Piperacillin Sodium/Tazobactam [Zosyn] 3.375 gm IV .STK-MED ONE 10/06/20 06:13 Basic Metabolic Panel DAILY@0600 Complete Blood Count no Diff DAILY@0600 Lactate Dehydrogenase Routine Liver Panel Routine Magnesium Routine 10/06/20 06:30 Pantoprazole Sodium [Protonix] 40 mg IVPUSH DAILY@0630 10/06/20 07:22 Glucose, Whole Blood Routine 10/06/20 07:46 Add Laboratory Test Urgent 10/06/20 09:00 dexAMETHasone Sod Phosphate/PF [Decadron] 6 mg IVPUSH DAILY 10/06/20 10:03 Magnesium Sulfate/D5W 1 gm in 100 ml IV ONCE 10/06/20 10:15 Potassium Chloride/H20 10 meq in 100 ml IV Q1H 10/06/20 10:50 LORazepam [Ativan] 0.5 mg IVPUSH ONCE ONE 10/06/20 10:56 Glucose, Whole Blood Routine 10/06/20 11:04 ABG (RT) ONCE 10/06/20 11:07 Glucose, blood poc Q1HR 10/06/20 11:47 Arterial Blood Gas Routine 10/06/20 12:59 LORazepam [Ativan] 0.25 mg IVPUSH ONCE ONE 10/06/20 13:07 Piperacillin Sodium/Tazobactam [Zosyn] 3.375 gm IV .STK-MED ONE 10/06/20 13:33 Glucose, Whole Blood Routine 10/06/20 13:59 Glucose, Whole Blood Routine 10/06/20 15:00 Potassium Chloride/H20 10 meq in 100 ml IV Q1H 10/06/20 15:28 Glucose, Whole Blood Routine 10/06/20 16:10 Doxycycline Hyclate [Vibramycin] 100 mg IV .STK-MED ONE 10/06/20 16:12 Glucose, Whole Blood Routine 10/06/20 16:20 Morphine Sulfate 0.5 mg IVPUSH ONCE ONE 10/06/20 18:00 MVI, Adult [Infuvite Adult] 18.9 ml Trace Elements w/o chromium [Tralement] 1.9 ml AA 4.25%/Calcium/Lytes/Dex 10% [Clinimix E 4.25%-10%] 2,000 ml IV DAILY@1800 10/06/20 18:29 Piperacillin Sodium/Tazobactam [Zosyn] 3.375 gm IV .STK-MED ONE 10/06/20 20:53 Glucose, Whole Blood Routine 10/07/20 00:49 Piperacillin Sodium/Tazobactam [Zosyn] 3.375 gm IV .STK-MED ONE 10/07/20 00:54 Piperacillin Sodium/Tazobactam [Zosyn] 3.375 gm IV .STK-MED ONE 10/07/20 04:22 Doxycycline Hyclate [Vibramycin] 100 mg IV .STK-MED ONE 10/07/20 05:19 Piperacillin Sodium/Tazobactam [Zosyn] 3.375 gm IV .STK-MED ONE 10/07/20 06:11 Albumin Level Routine Basic Metabolic Panel DAILY@0600 Complete Blood Count no Diff DAILY@0600 Magnesium Routine Phosphorus Routine 10/07/20 07:37 Glucose, Whole Blood Routine 10/07/20 08:00 Potassium Chloride/H20 10 meq in 100 ml IV Q1H 10/07/20 09:57 Add Laboratory Test Stat 10/07/20 10:00 LORazepam [Ativan] 0.5 mg IVPUSH ONCE ONE 10/07/20 11:35 Glucose, Whole Blood Routine 10/07/20 11:51 Piperacillin Sodium/Tazobactam [Zosyn] 3.375 gm IV .STK-MED ONE 10/07/20 15:14 Lidocaine HCl 1 % MPF [Xylocaine 1 % MPF] 5 ml .ROUTE .STK-MED ONE 10/07/20 16:15 Dextrose 5 % [D5w] 1,000 ml IVCONT 100 mls/hr 10/07/20 16:41 Magnesium Sulfate/H2O 2 gm in 50 ml IV ONCE 10/07/20 16:44 Glucose, Whole Blood Routine 10/07/20 16:45 Thiamine HCL 200 mg 0.9 % Sodium Chloride [Ns] 100 ml IV Q12H 10/07/20 16:58 Doxycycline Hyclate [Vibramycin] 100 mg IV .STK-MED ONE 10/07/20 17:00 methylPREDNISolone Sod Succ/PF [SOLU-MedroL] 40 mg IVPUSH Q12H 10/07/20 18:00 Potassium Chloride 20 meq Sodium Chloride 23.4% 20 meq Magnesium Sulfate 10 meq Potassium Phosphate [KPhos] 30 mmol Calcium Gluconate 9.3 meq MVI, Adult [Infuvite Adult] 12.8 ml Trace Elements w/o chromium [Tralement] 1.3 ml Amino Acids 4.25%/Dextrose 10% [Clinimix 4.25%-10%] 2,000 ml IVCONT DAILY@1800 10/07/20 19:15 Glucose, Whole Blood Routine 10/07/20 20:26 Glucose, Whole Blood Routine 10/07/20 21:00 Glucose, Whole Blood Routine Famotidine/PF [Pepcid/PF] 20 mg IVPUSH BID Insulin Glargine,Hum.rec.anlog [Lantus] 20 unit SUBCUT BID 10/07/20 21:02 Sodium Routine 10/07/20 22:06 Glucose, Whole Blood Routine 10/07/20 23:18 Glucose, Whole Blood Routine 10/08/20 00:41 Glucose, Whole Blood Routine 10/08/20 00:54 Insulin Lispro [Humalog] 10 unit SUBCUT ONCE ONE 10/08/20 02:00 Basic Metabolic Panel Routine 10/08/20 02:04 Glucose, Whole Blood Routine 10/08/20 02:13 Insulin Lispro [Humalog] 10 unit SUBCUT ONCE ONE 10/08/20 03:00 Potassium Chloride/H20 10 meq in 100 ml IV Q1H 10/08/20 03:52 Glucose, Whole Blood Routine 10/08/20 04:03 Doxycycline Hyclate [Vibramycin] 100 mg IV .STK-MED ONE 10/08/20 04:19 Doxycycline Hyclate [Vibramycin] 100 mg IV .STK-MED ONE 10/08/20 04:58 Glucose, Whole Blood Routine 10/08/20 05:15 Dextrose 5 % [D5w] 1,000 ml IVCONT 100 mls/hr 10/08/20 05:59 Glucose, Whole Blood Routine 10/08/20 07:28 Glucose, Whole Blood Routine 10/08/20 07:37 Procalcitonin Routine Venous Blood Gas Routine 10/08/20 07:38 Basic Metabolic Panel DAILY@0600 C Reactive Protein Routine Complete Blood Count no Diff Urgent D Dimer Routine Ferritin Routine 10/08/20 08:11 Glucose, Whole Blood Routine 10/08/20 09:12 Glucose, Whole Blood Routine 10/08/20 10:02 Haloperidol Lactate [Haldol] 0.5 mg IV ONCE ONE 10/08/20 11:15 Glucose, Whole Blood Routine 10/08/20 11:26 ABG (RT) ONCE 10/08/20 11:50 Arterial Blood Gas Routine 10/08/20 12:00 Enoxaparin Sodium [Lovenox] 35 mg SUBCUT Q12H Enoxaparin Sodium [Lovenox] 35 mg SUBCUT Q12H 10/08/20 12:59 Complete Blood Count no Diff Stat Liver Panel Routine Magnesium Routine Partial Thromboplastin Time Stat Prothrombin Time INR Stat Sodium Routine 10/08/20 14:14 Doxycycline Hyclate [Vibramycin] 100 mg IV .STK-MED ONE 10/08/20 15:27 Glucose, Whole Blood Routine 10/08/20 17:26 Add Laboratory Test Urgent 10/08/20 18:44 Glucose, Whole Blood Routine 10/08/20 19:27 C Reactive Protein Routine Ferritin Routine 10/08/20 21:35 Glucose, Whole Blood Routine 10/08/20 21:44 D Dimer Routine Sodium Routine 10/09/20 00:40 Haloperidol Lactate [Haldol] 1 mg IVPUSH ONCE ONE 10/09/20 01:24 Behavioral: Every 4 hours 18 yrs an older Q4H 10/09/20 04:18 Thiamine HCL 200 mg .ROUTE .STK-MED ONE 10/09/20 05:00 Doxycycline Hyclate [Vibramycin] 100 mg 0.9 % Sodium Chloride [Ns] 250 ml IV Q12H 10/09/20 05:17 Doxycycline Hyclate [Vibramycin] 100 mg IV .STK-MED ONE 10/09/20 06:03 Basic Metabolic Panel DAILY@0600 C Reactive Protein Routine Ferritin Routine Liver Panel Routine Magnesium Routine Phosphorus Routine 10/09/20 06:15 Glucose, Whole Blood Routine 10/09/20 07:44 Glucose, Whole Blood Routine 10/09/20 08:00 Potassium Chloride/H20 10 meq in 100 ml IV Q1H 10/09/20 08:38 Calcium Gluconate/NaCl,Iso-Osm [Calcium Gluconate] 1 gm in 50 ml IV ONCE 10/09/20 09:16 CBC NO DIFF [Complete Blood Count no Diff] Routine D Dimer Routine Prothrombin Time INR Routine 10/09/20 10:53 ABG (RT) ONCE 10/09/20 11:24 Glucose, Whole Blood Routine 10/09/20 11:26 Dextrose 50 % [D50] 25 gm IVPUSH ONCE ONE 10/09/20 11:35 Haloperidol Lactate [Haldol] 1 mg IVPUSH ONCE ONE 10/09/20 11:38 ABG (RT) ONCE 10/09/20 11:40 Add Laboratory Test Stat 10/09/20 11:49 Add Laboratory Test Urgent 10/09/20 12:02 Arterial Blood Gas Routine 10/09/20 13:21 Glucose, Whole Blood Routine 10/09/20 14:06 Haloperidol Lactate [Haldol] 1 mg IVPUSH ONCE ONE 10/09/20 16:57 Glucose, Whole Blood Routine 10/09/20 17:06 Dextrose 50 % [D50] 25 gm IVPUSH ONCE ONE Haloperidol Lactate [Haldol] 1 mg IVPUSH ONCE ONE 10/09/20 17:32 Glucose, Whole Blood Routine 10/09/20 17:34 Thiamine HCL 200 mg .ROUTE .STK-MED ONE 10/09/20 17:58 Glucose, Whole Blood Routine 10/09/20 18:00 Potassium Chloride 20 meq Sodium Chloride 23.4% 20 meq Magnesium Sulfate 10 meq Potassium Phosphate [KPhos] 30 mmol Calcium Gluconate 9.3 meq MVI, Adult [Infuvite Adult] 12.8 ml Trace Elements w/o chromium [Tralement] 1.3 ml Amino Acids 4.25%/Dextrose 10% [Clinimix 4.25%-10%] 1,560 ml IVCONT DAILY@1800 10/09/20 18:22 Doxycycline Hyclate [Vibramycin] 100 mg IV .STK-MED ONE 10/09/20 18:33 Complete Blood Count Auto Diff Routine 10/09/20 18:56 Glucose, Whole Blood Routine 10/09/20 20:06 Glucose, Whole Blood Routine 10/09/20 22:34 Glucose, Whole Blood Routine 10/10/20 03:59 Thiamine HCL 200 mg .ROUTE .STK-MED ONE 10/10/20 04:20 Glucose, Whole Blood Routine 10/10/20 04:23 Doxycycline Hyclate [Vibramycin] 100 mg IV .STK-MED ONE 10/10/20 05:56 Albumin Level Routine Basic Metabolic Panel DAILY@0600 Complete Blood Count no Diff DAILY@0600 D Dimer Routine Hemoglobin A1c Routine Magnesium Routine Phosphorus Routine 10/10/20 07:12 Glucose, Whole Blood Routine 10/10/20 08:14 Calcium Gluconate/NaCl,Iso-Osm [Calcium Gluconate] 1 gm in 50 ml IV ONCE Magnesium Sulfate/D5W 1 gm in 100 ml IV ONCE 10/10/20 08:15 Potassium Chloride/H20 10 meq in 100 ml IV Q1H 10/10/20 08:44 Add Laboratory Test Urgent 10/10/20 11:06 Glucose, Whole Blood Routine 10/10/20 15:25 Glucose, Whole Blood Routine 10/10/20 Lunch NPO Diet 10/10/20 17:04 Thiamine HCL 200 mg .ROUTE .STK-MED ONE 10/10/20 17:49 Doxycycline Hyclate [Vibramycin] 100 mg IV .STK-MED ONE 10/10/20 18:00 Potassium Chloride 20 meq Sodium Chloride 23.4% 20 meq Magnesium Sulfate 16 meq Potassium Phosphate [KPhos] 40 mmol Calcium Gluconate 9.3 meq MVI, Adult [Infuvite Adult] 12.8 ml Trace Elements w/o chromium [Tralement] 1.3 ml Amino Acids 5 %/Dextrose 15 % [Clinimix 5%-15%] 2,000 ml IVCONT DAILY@1800 10/10/20 Dinner Diabetic Diet 10/10/20 20:11 Glucose, Whole Blood Routine 10/10/20 21:49 Potassium Urgent 10/11/20 00:28 Glucose, Whole Blood Routine 10/11/20 03:54 Glucose, Whole Blood Routine 10/11/20 05:07 Thiamine HCL 200 mg .ROUTE .STK-MED ONE 10/11/20 05:53 Doxycycline Hyclate [Vibramycin] 100 mg IV .STK-MED ONE 10/11/20 07:15 Glucose, Whole Blood Routine 10/11/20 08:23 Basic Metabolic Panel DAILY@0600 C Reactive Protein Routine Complete Blood Count no Diff DAILY@0600 D Dimer Routine Magnesium Routine Phosphorus Routine 10/11/20 10:50 Glucose, Whole Blood Routine 10/11/20 12:08 Add Laboratory Test Stat 10/11/20 12:49 XR chest 1V Routine 10/11/20 Lunch Regular Diet 10/11/20 16:20 Thiamine HCL 200 mg .ROUTE .STK-MED ONE 10/11/20 16:30 Glucose, Whole Blood Routine 10/11/20 17:08 Doxycycline Hyclate [Vibramycin] 100 mg IV .K-MED ONE 10/11/20 18:00 Potassium Chloride 20 meq Sodium Chloride 23.4% 20 meq Magnesium Sulfate 16 meq Potassium Phosphate [KPhos] 40 mmol Calcium Gluconate 9.3 meq MVI, Adult [Infuvite Adult] 10 ml Trace Elements w/o chromium [Tralement] 1 ml Amino Acids 5 %/Dextrose 15 % [Clinimix 5%-15%] 2,000 ml IVCONT DAILY@1800 Potassium Chloride 20 meq Sodium Chloride 23.4% 20 meq Magnesium Sulfate 16 meq Potassium Phosphate [KPhos] 40 mmol Calcium Gluconate 9.3 meq MVI, Adult [Infuvite Adult] 10 ml Trace Elements w/o chromium [Tralement] 1 ml Amino Acids 5 %/Dextrose 15 % [Clinimix 5%-15%] 2,000 ml IVCONT DAILY@1800 10/12/20 00:13 LORazepam [Ativan] 1 mg IVPUSH ONCE ONE 10/12/20 04:48 Doxycycline Hyclate [Vibramycin] 100 mg IV .STK-MED ONE Thiamine HCL 200 mg .ROUTE .STK-MED ONE 10/12/20 05:58 Albumin Level Routine Basic Metabolic Panel DAILY@0600 Complete Blood Count no Diff DAILY@0600 Magnesium Routine Phosphorus Routine 10/12/20 06:35 Haloperidol Lactate [Haldol] 1 mg IVPUSH STAT STA 10/12/20 07:18 Glucose, Whole Blood Routine 10/12/20 10:08 Add Laboratory Test Stat 10/12/20 11:15 Glucose, Whole Blood Routine 10/12/20 12:33 LORazepam [Ativan] 1 mg IVPUSH Q6H PRN 10/12/20 15:45 Thiamine HCL 200 mg .ROUTE .STK-MED ONE 10/12/20 16:15 Glucose, Whole Blood Routine 10/12/20 17:37 Doxycycline Hyclate [Vibramycin] 100 mg IV .STK-MED ONE 10/12/20 18:00 Potassium Chloride 20 meq Sodium Chloride 23.4% 20 meq Magnesium Sulfate 16 meq Potassium Phosphate [KPhos] 40 mmol Calcium Gluconate 9.3 meq MVI, Adult [Infuvite Adult] 10 ml Trace Elements w/o chromium [Tralement] 1 ml Amino Acids 5 %/Dextrose 15 % [Clinimix 5%-15%] 2,000 ml IVCONT DAILY@1800 10/12/20 20:26 Glucose, Whole Blood Routine 10/13/20 00:51 Glucose, Whole Blood Routine 10/13/20 03:29 Doxycycline Hyclate [Vibramycin] 100 mg IV .STK-MED ONE Thiamine HCL 200 mg .ROUTE .STK-MED ONE 10/13/20 04:05 Glucose, Whole Blood Routine 10/13/20 04:45 Insulin Lispro [Humalog] See Protocol SUBCUT Q6H 10/13/20 05:03 Morphine Sulfate 2 mg IVPUSH ONCE ONE 10/13/20 05:41 Metoprolol Tartrate [Lopressor] 5 mg IVPUSH ONCE ONE 10/13/20 05:42 Metoprolol Tartrate [Lopressor] 5 mg .ROUTE .STK-MED ONE 10/13/20 07:20 Arterial Blood Gas Stat 10/13/20 07:27 Glucose, Whole Blood Routine 10/13/20 09:45 0.9 % Sodium Chloride [Ns] 1,000 ml IVCONT 100 mls/hr 10/13/20 10:15 0.9 % Sodium Chloride [Ns] 1,000 ml IVCONT 999 mls/hr 10/13/20 10:43 Glucose, Whole Blood Routine 10/13/20 11:14 Glucose, Whole Blood Routine 10/13/20 16:59 Glucose, Whole Blood Routine 10/13/20 17:11 Doxycycline Hyclate [Vibramycin] 100 mg IV .STK-MED ONE 10/13/20 18:00 Potassium Chloride 20 meq Sodium Chloride 23.4% 20 meq Magnesium Sulfate 16 meq Potassium Phosphate [KPhos] 40 mmol Calcium Gluconate 9.3 meq MVI, Adult [Infuvite Adult] 10 ml Trace Elements w/o chromium [Tralement] 1 ml Amino Acids 5 %/Dextrose 15 % [Clinimix 5%-15%] 2,000 ml IVCONT DAILY@1800 10/13/20 19:37 Morphine Sulfate 4 mg IVPUSH Q4H PRN Naloxone HCl [Narcan] 0.2 mg IVPUSH Q2M PRN Laboratory Last Values WBC 16.8 X10*3/uL (4.8-10.8) H 10/12/20 05:58 RBC 3.05 X10*6/uL (4.60-5.80) L 10/12/20 05:58 Hgb 9.4 g/dl (14.0-18.0) L 10/12/20 05:58 Hct 28.3 % (42-52) L 10/12/20 05:58 MCV 92.8 fL (80-98) 10/12/20 05:58 MCH 30.8 pg (27.0-33.0) 10/12/20 05:58 MCHC 33.2 g/dl (31.0-36.0) 10/12/20 05:58 RDW 17.2 % (11.0-16.0) H 10/12/20 05:58 Plt Count 105 X10*3/uL (160-400) L D 10/12/20 05:58 MPV 12.1 fL (9.4-12.4) 10/12/20 05:58 Immature Gran % (Auto) 3.7 % (0.0-0.4) H 10/09/20 18:33 Neut % (Auto) 88.0 % (45-73) H 10/09/20 18:33 Lymph % (Auto) 6.3 % (20-40) L 10/09/20 18:33 Bartholomew % (Auto) 1.8 % (2-11) L 10/09/20 18:33 Eos % (Auto) 0.0 % (0-4) 10/09/20 18:33 Baso % (Auto) 0.2 % (0-2) 10/09/20 18:33 Lymph # (Auto) 1.3 X10*3/uL (1.2-4.9) 10/09/20 18:33 Bartholomew # (Auto) 0.4 X10*3/uL (0.1-1.2) 10/09/20 18:33 Eos # (Auto) 0.0 X10*3/uL (0.0-0.4) 10/09/20 18:33 Baso # (Auto) 0.1 X10*3/uL (0.0-0.2) 10/09/20 18:33 Abs Immat Gran (auto) 0.76 X10*3/uL (0.00-0.03) H 10/09/20 18:33 Absolute Neuts (auto) 18.3 X10*3/uL (2.0-8.3) H 10/09/20 18:33 Absolute Nucleated RBC 0.030 X10*3/uL (0.0-0.012) H 10/12/20 05:58 Nucleated RBC % (auto) 0.2 /100WBC (0.0-0.2) 10/12/20 05:58 Neutrophils % (Manual) 74 % (45-73) H 10/04/20 06:03 Band Neutrophils % 20 % (3-5) H 10/04/20 06:03 Lymphocytes % (Manual) 3 % (20-40) L 10/03/20 15:09 Monocytes % (Manual) 4 % (2-11) 10/04/20 06:03 Basophils % (Manual) 1 % (0-1) 10/01/20 05:48 Metamyelocytes % 2 % 10/04/20 06:03 Abs Neuts (Manual) 21.2 X10*3/uL (2.2-7.9) H 10/04/20 06:03 Lymphocytes # (Manual) 0.4 X10*3/uL (0.6-4.8) L 10/03/20 15:09 Monocytes # (Manual) 0.9 X10*3/uL (0.0-1.2) 10/04/20 06:03 Metamyelocytes # 0.5 X10*3/uL 10/04/20 06:03 Nucleated RBCs 2 /100WBC (0-0) H 10/04/20 06:03 Platelet Estimate NORMAL (NORMAL) 10/04/20 06:03 Large Platelets PRESENT 10/03/20 15:09 Plt Morphology Comment NORMAL 10/04/20 06:03 RBC Morphology NOTED 10/04/20 06:03 Polychromasia 1+ 10/04/20 06:03 Hypochromasia 1+ 10/04/20 06:03 Microcytosis 1+ 10/04/20 06:03 Macrocytosis 1+ 10/04/20 06:03 Spherocytes 3+ 10/01/20 05:48 Tear Drop Cells 1+ 10/04/20 06:03 Ovalocytes 1+ 10/04/20 06:03 [place] Cells 1+ 10/04/20 06:03 Acanthocytes (Spur) 1+ 10/04/20 06:03 Smear Tech's Comments VERIFIED 09/30/20 09:54 Smear Path Review SEE NOTE 10/03/20 15:09 PT 14.3 SEC (10.8-13.0) H 10/09/20 09:16 INR 1.2 (0.9-1.1) H 10/09/20 09:16 APTT 24.4 SEC (24.1-38.0) D 10/08/20 12:59 D-Dimer 3111 NG/ML 10/11/20 08:23 ABG pH 7.48 (7.35-7.45) H 10/13/20 07:20 ABG pCO2 24 mmhg (32-45) L 10/13/20 07:20 ABG pO2 61 mmhg (83-108) L 10/13/20 07:20 ABG HCO3 18 mmol/l (22-26) L 10/13/20 07:20 ABG O2 Saturation 91.2 % 10/13/20 07:20 ABG Base Excess -4.4 10/13/20 07:20 VBG pH 7.40 (7.32-7.43) 10/08/20 07:37 VBG pCO2 49 mmhg 10/08/20 07:37 VBG pO2 29 mmhg 10/08/20 07:37 VBG HCO3 29 mmol/L 10/08/20 07:37 VBG O2 Saturation TNP 10/08/20 07:37 VBG Base Excess 3.6 mmol/L 10/08/20 07:37 Oxygen Given 100% 10/13/20 07:20 Sodium 139 mmol/L (135-145) 10/12/20 05:58 Potassium 3.8 mmol/l (3.3-5.1) 10/12/20 05:58 Chloride 105 mmol/L (96-108) 10/12/20 05:58 Carbon Dioxide 24 mmol/L (22-29) 10/12/20 05:58 Anion Gap 14 (-20) 10/12/20 05:58 BUN 19 mg/dL (9-16) H 10/12/20 05:58 Creatinine 0.62 mg/dL (0.5-1.4) 10/12/20 05:58 Estim Creat Clear Calc 94.6 10/12/20 05:58 Estimated GFR > 60 10/12/20 05:58 POC Glucose 382 mg/dL (60-115) H* 10/13/20 16:59 Random Glucose 327 mg/dL (60-115) H D 10/12/20 05:58 Estimat Average Glucose 229 mg/dL 10/10/20 05:56 Hemoglobin A1c % 9.6 % 10/10/20 05:56 Lactic Acid 3.3 mmol/L (0.5-2.0) H* 10/04/20 15:35 Lactic Acid Fup @ 2Hr 2.0 mmol/L (0.5-2.0) 10/04/20 18:21 Calcium 7.3 mg/dL (8.4-10.2) L 10/12/20 05:58 Phosphorus 2.7 mg/dL (2.7-4.5) 10/12/20 05:58 Magnesium 2.1 mg/dL (1.6-2.6) 10/12/20 05:58 Ferritin 2364 ng/mL (20-250) H 10/09/20 06:03 Total Bilirubin 0.5 mg/dL (0.0-1.0) 10/09/20 06:03 Direct Bilirubin 0.2 mg/dL (0.0-0.5) 10/09/20 06:03 AST 45 U/L (5-37) H 10/09/20 06:03 ALT 13 U/L (0-40) 10/09/20 06:03 Alkaline Phosphatase 181 U/L (39-117) H 10/09/20 06:03 Lactate Dehydrogenase 889 U/L (118-273) H 10/06/20 06:13 C-Reactive Protein 13.18 mg/dL (< or = 0.50) H 10/11/20 08:23 Total Protein 5.2 g/dL (6.5-8.0) L 10/09/20 06:03 Albumin 2.1 g/dL (3.5-5.0) L 10/12/20 05:58 Triglycerides 170 mg/dL 10/05/20 10:39 Procalcitonin 0.24 ng/mL 10/08/20 07:37 Vancomycin Trough 18.5 mcg/mL (10.0-20.0) 10/01/20 17:57 Random Vancomycin 16.6 mcg/mL (15-20) 10/02/20 11:04 Acetone, Qual Moderate (Negative) H 10/04/20 15:35 Coronavirus (PCR) POSITIVE (Negative) A 09/30/20 09:54 Influenza Type A (PCR) NEGATIVE (Negative) 09/30/20 09:54 Influenza Type B (PCR) NEGATIVE (Negative) 09/30/20 09:54 Ur L.pneumophila Ag Not Detected (Not Detected) 10/01/20 11:45 RSV RNA Qual (PCR) NEGATIVE (Negative) 09/30/20 09:54 Ref Lab Test Result Cancelled 10/06/20 18:40 Blood Type B Positive 10/08/20 15:32 Antibody Screen NEGATIVE 10/08/20 15:32 Discharge Plan Discharge Patient Disposition: Referrals: Physician,None [Primary Care Provider] - Discharge Medications: No Action hydrochlorothiazide 12.5 mg Capsule 12.5 mg PO QAM RF: 0 esomeprazole magnesium 40 mg Capsule,Delayed Release(Dr/Ec) 40 mg PO DAILY RF: 0 losartan 50 mg Tablet 50 mg PO DAILY RF: 0 sertraline 100 mg Tablet 100 mg PO DAILY RF: 0 ondansetron 8 mg Tablet,Disintegrating 8 mg PO Q8H PRN (Reason: Nausea) RF: 0 tamsulosin 0.4 mg Capsule 0.4 mg PO QPM RF: 0 metformin 1,000 mg Tablet 1,000 mg PO BIDWM RF: 0 dexamethasone 4 mg Tablet 4 mg PO BID RF: 0 melatonin 5 mg Tablet 5 mg PO BEDTIME PRN (Reason: Insomnia) RF: 0 atorvastatin 80 mg Tablet 80 mg PO BEDTIME RF: 0 aspirin 81 mg Tablet 81 mg PO DAILY RF: 0 dulaglutide 1.5 mg/0.5 mL Pen Injector 1.5 mg SUBCUT MO@1000 RF: 0
--- NOTE | 2020-10-14 19:20 | PC.NURSE ---
Pt on comfort care,no pulse to respiration at 1740. DR. Benites was notified , organ bank notified, . DR. Benites spoke with the family. This RN called the number that was on pt chart: Blaise andersonson, he stated that family will decide regarding home
== END 2020-10-14 20:14 | disposition expired | DRG 871 ==
LOC: HO.ED 11:26 → HO.IMC 13:01
PROVIDERS: Internal Medicine; Admitting Provider Hospitalist; Emergency Provider Emergency Medicine Emergency Medical Services; Visit Provider Hospitalist
DX: A41.89 Other specified sepsis (principal); U07.1 COVID-19; J12.89 Other viral pneumonia; G92 Toxic encephalopathy; J96.01 Acute respiratory failure with hypoxia; C78.7 Secondary malignant neoplasm of liver and intrahepatic bile duct; F05 Delirium due to known physiological condition; E87.2 Acidosis; E87.0 Hyperosmolality and hypernatremia; E87.3 Alkalosis; E44.0 Moderate protein-calorie malnutrition; E78.5 Hyperlipidemia, unspecified; T38.0X5A Adverse effect of glucocorticoids and synthetic analogues, initial encounter; Y92.239 Unspecified place in hospital as the place of occurrence of the external cause; E11.65 Type 2 diabetes mellitus with hyperglycemia; D70.1 Agranulocytosis secondary to cancer chemotherapy; T45.1X5A Adverse effect of antineoplastic and immunosuppressive drugs, initial encounter; F32.9 Major depressive disorder, single episode, unspecified; Z85.038 Personal history of other malignant neoplasm of large intestine; Z68.21 Body mass index [BMI] 21.0-21.9, adult; Z79.82 Long term (current) use of aspirin; Z79.84 Long term (current) use of oral hypoglycemic drugs; Z79.899 Other long term (current) drug therapy; Z51.5 Encounter for palliative care
CPT/HCPCS: 0241U; 36415; 36600; 70450; 71045; 71275; 80048; 80076; 80202; 82009; 82040; 82728; 82803; 82947; 83036; 83605; 83615; 83735; 84100; 84132; 84145; 84295; 84478; 85007; 85025; 85027; 85060; 85379; 85610; 85730; 86140; 86850; 86900; 86901; 87040; 87449; 92526; 92610; 93970; 96361; 96365; 96367; 96375; 99232; 99285; 99291; C1758; J0610; J1100; J1200; J1447; J1650; J1940; J2060; J2270; J2543; J2765; J2920; J3370; J3411; J3475; J8540; Q9967